=== PATIENT | female | born 1935 | race Caucasian/White ===

== ENCOUNTER → 2016-12-31 | Outpatient (CLI) | payer BC ==
[~2016-12-31] MED LIST: EVS60 PO; OXYC-57 PO
--- NOTE | 2017-01-03 14:25 | MAMMOGRAPHY REPORT ---
BILATERAL DIGITAL SCREENING MAMMOGRAM WITH CAD: 12/31/2016 CLINICAL HISTORY: Routine screening. Patient has no complaints. Asymptomatic. Personal history of b reast cancer. TECHNIQUE: Current study was also evaluated with a Computer Aided Detection (CAD) system. Bilatera l CC and MLO views and left X CCL view were obtained. COMPARISON: Comparison is made to exams dated: 12/31/2015 mammogram, 06/25/2015 mammogram, 12/06/2014 mammogram, 11/22/2012 mammogram, 11/28/2013 mammogram, and 11/05/2011 mammogram - [facility] enter. BREAST COMPOSITION: There are scattered areas of fibroglandular density in both breasts. FINDINGS: No suspicious masses, calcifications, or areas of architectural distortion are noted in e ither breast. There has been no significant interval change compared to prior exams. Scattered bilat eral benign-appearing calcifications are not significantly changed. There are stable post surgical changes in the left breast from prior lumpectomy. A biopsy marker clip is again noted in the right 6:00 breast. Asymmetry seen within the left subareolar breast on the MLO view is similar to prior e xams including the 2010 exam. IMPRESSION: ACR BI-RADS CATEGORY 2: BENIGN There is no mammographic evidence of malignancy. A 1 year screening mammogram is recommended. The p atient will receive written notification of the results. Approximately 10% of breast cancers are not detected with mammography. A negative mammographic repor t should not delay biopsy if a clinically suggestive mass is present. Wendy Arndt M.D. ah/:12/31/2016 15:26:45 Head Orthopedic Team Physician: Ricardo YUSUF(Stephanie)(M), [facility] letter sent: Normal 1/2 BI-RADS Code: ACR BI-RADS Category 2: Benign
== END | disposition home or self-care (01) ==
LOC: C.MAMM 10:42
PROVIDERS: ATTEND Obstetrics & Gynecology
DX: Z12.31 Encounter for screening mammogram for malignant neoplasm of breast (principal); Z85.3 Personal history of malignant neoplasm of breast

== ENCOUNTER → 2016-12-31 | Outpatient (CLI) | payer BC ==
[2016-12-31 12:54] LABS: BLOOD UREA NITROGEN 32 mg/dl (7-18); BUN/CREATININE RATIO 24.4 (10-20); CARBON DIOXIDE 22 mmol/L (21-32); CHLORIDE 109 mmol/L (98-107); GLUCOSE 124 mg/dl (70-99); POTASSIUM 3.9 mmol/L (3.5-5.1); SODIUM 140 mmol/L (136-145)
[2016-12-31 13:08] LABS: ESTIMATED AVERAGE GLUCOSE 117 mg/dl; HA1C FLAG Normal (Normal)
--- NOTE | 2017-01-25 10:50 | CODING QUERY MEDICAL NECESSITY ---
CQSUPPORTING DIAGNOSIS NEEDED A supporting diagnosis is required for the test/procedure performed on this patient in order for us to be reimbursed by the patient's insurance. Please provide a supporting diagnosis for the following test/procedure listed below next to the test name along with your signature. *If there is no additional diagnosis for this patient that would support the following test/procedure please document that below next to the test/procedure. Test(s)/Procedure(s) that require a supporting diagnosis: LEYLA 12/31/16 GLYCATED HEMOGLOBIN Provider Signature: Date: Thank you Letty Kebede [employer] Once completed, please kindly fax back to [phone] For questions please call [phone]
== END | disposition home or self-care (01) ==
LOC: C.LAB1850 11:18
PROVIDERS: ATTEND Internal Medicine
DX: I10 Essential (primary) hypertension (principal); E53.8 Deficiency of other specified B group vitamins; Z12.31 Encounter for screening mammogram for malignant neoplasm of breast; Z85.3 Personal history of malignant neoplasm of breast; R73.9 Hyperglycemia, unspecified

== ENCOUNTER → 2017-07-07 | Outpatient (CLI) | payer BC | END | disposition home or self-care (01) | LOC: C.MAMM 11:32 | PROVIDERS: ATTEND Obstetrics & Gynecology | DX: M85.80 Other specified disorders of bone density and structure, unspecified site (principal); M85.832 Other specified disorders of bone density and structure, left forearm ==

== ENCOUNTER 2018-01-07 20:33 | Inpatient (IN) | payer BC, OTHER ==
[~2018-01-07] VITALS: Ht 162.6 cm; Wt 75.8 kg
--- NOTE | 2018-01-07 20:50 | EMERGENCY ROOM VISIT NOTE ---
History Report prepared by Caleb: Mary Al Under the Supervision of: Dr. Brian Turner M.D. 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 Positive RUQ abdominal pain, nausea, dry heaving, itchiness, and a recent long distance trip to [facility]. Negative vomiting. She states she has been having constant chest discomfort for the past week, so she went to [facility] and had an EKG done which showed inversions and a BBB. Nothing makes her discomfort better or worse. She also notes she felt a lot of pressure across her chest and shoulders which reminded her of compression fractures s she had a few years ago. 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 Review of Systems See HPI for pertinent positives and negatives. A total of ten systems were reviewed and were otherwise negative. Past Medical & Surgical Medical Problems: (1) Abdominal pain (2) Obstructive jaundice HTN (hypertension) Osteopenia Family History Cancer Diabetes mellitus Heart disease High blood pressure Kidney disease Social History Smoking Status: Former Smoker Alcohol Use: occasionally Marital Status: Occupation Status: retired Current/Historical Medications Scheduled Biotin (Biotin 5000), 5 MG PO DAILY Calcium Carbonate-Vitamin D W/ (Caltrate 600 Plus), 1 TAB PO DAILY Diclofenac Sodium (Topical) (Voltaren 1% Top Gel), 1 APPLN TOP PRN UD Fluticasone Propionate (Nasal) (Flonase Allergy Relief), 2 SPRAYS MICHAEL DAILY Glucosamine-Chondroitin (Osteo Bi-Flex Regular Str), 1 TAB PO DAILY Indapamide (Lozol), 1.25 MG PO DAILY Metronidazole (Topical) (Metrogel), 1 APPLN TOP PRN UD Multiple Vitamins W/ Minerals (Centrum Silver 50+Women), 1 TAB PO DAILY Raloxifene Hcl (Evista), 60 MG PO DAILY Scheduled PRN Hydroxyzine Hcl (Atarax), 25 MG PO HS PRN for Ibuprofen Tab (Advil), 200 MG PO TID PRN for Pain Tramadol (Ultram), 50-100 MG PO Q4 PRN for Pain Allergies Coded Allergies: No Known Allergies (Verified Allergy, Unknown, 11/18/02) Physical Exam Vital Signs Date Time Temp Pulse Resp B/P (MAP) Pulse Ox O2 Delivery O2 Flow Rate FiO2 01/08/18 01:15 78 20 147/74 97 Room Air 01/07/18 23:15 80 20 151/79 99 Room Air 01/07/18 21:19 75 01/07/18 21:10 96 Room Air 01/07/18 20:34 36.7 81 24 144/85 96 Room Air Physical Exam GENERAL: Awake, alert, well-appearing, NAD HENT: Normocephalic, atraumatic. EYES: Normal conjunctiva. Positive scleral icterus. PERRL. No anisocoria. NECK: Supple. No nuchal rigidity. FROM. RESPIRATORY: CTAB, no rhonchi, wheezing, crackles CARDIAC: RRR, no MRG ABDOMEN: Soft, NTND, BS+. RUQ discomfort. Positive Guillermo's, negative psoas, negative obturators. No guarding no rebound MSK: No chest wall TTP, no LE edema NEURO: GCS 15, CN 2-12 intact, moves all 4s on command SKIN: Jaundiced complexion. Medical Decision & Procedures ER Provider Diagnostic Interpretation: Radiology results as stated below per my review and radiologist interpretation: CHEST ONE VIEW PORTABLE HISTORY: 82 years-old Female CHEST PAIN acute atypical chest pain COMPARISON: Chest radiographs 07/20/2010 TECHNIQUE: Portable AP view of the chest FINDINGS: Cardiomediastinal and hilar silhouettes are within normal limits. The patient is slightly rotated to the left. There is no pneumothorax, large pleural effusion, overt pulmonary edema or lobar airspace consolidation. Minimal subsegmental left basilar opacities suggest atelectasis. Surgical clips project over the left axilla. Bones of the chest appear grossly intact. IMPRESSION: No acute process. The above report was generated using voice recognition software. It may contain grammatical, syntax or spelling errors. Electronically signed by: Eliu Torres M.D. 01/07/2018 9:07 PM Dictated Date/Time: 01/07/2018 9:06 PM US ABDOMEN LIMITED Pancreas within normal limits Echogenic liver suggestive of hepatic steatosis. Multiple hypoechoic masses, largest meausuring 2.8 cm. Consider tumor/metastases. Consider dedicated liver CT, nonurgent. Intrahepatic biliary ductal dilatation is concerning. Common bile duct also measures 1 cm. Correlate with LFTs .Gallbladder is normal. Right kidney is unremarkable. Radiologist: Ashwin Lemus M.D. Study ready at 23:09 and initial results transmitted at 23:35 Laboratory Results 01/07/18 20:55 Red Blood Count 4.12, Mean Corpuscular Volume 93.9, Mean Corpuscular Hemoglobin 32.8, Mean Corpuscular Hemoglobin Concent 34.9, Mean Platelet Volume 11.3, Neutrophils (%) (Auto) 45.6, Lymphocytes (%) (Auto) 41.6, Monocytes (%) (Auto) 8.3, Eosinophils (%) (Auto) 4.0, Basophils (%) (Auto) 0.3, Neutrophils # (Auto) 4.19, Lymphocytes # (Auto) 3.83, Monocytes # (Auto) 0.76, Eosinophils # (Auto) 0.37, Basophils # (Auto) 0.03 01/07/18 20:55 Test 01/07/18 20:55 01/08/18 00:13 White Blood Count 9.20 K/uL (4.8-10.8) Red Blood Count 4.12 M/uL (4.2-5.4) Hemoglobin 13.5 g/dL (12.0-16.0) Hematocrit 38.7 % (37-47) Mean Corpuscular Volume 93.9 fL (80-100) Mean Corpuscular Hemoglobin 32.8 pg (25-34) Mean Corpuscular Hemoglobin Concent 34.9 g/dl (32-36) Platelet Count 280 K/uL (130-400) Mean Platelet Volume 11.3 fL (7.4-10.4) Neutrophils (%) (Auto) 45.6 % Lymphocytes (%) (Auto) 41.6 % Monocytes (%) (Auto) 8.3 % Eosinophils (%) (Auto) 4.0 % Basophils (%) (Auto) 0.3 % Neutrophils # (Auto) 4.19 K/uL (1.4-6.5) Lymphocytes # (Auto) 3.83 K/uL (1.2-3.4) Monocytes # (Auto) 0.76 K/uL (0.11-0.59) Eosinophils # (Auto) 0.37 K/uL (0-0.5) Basophils # (Auto) 0.03 K/uL (0-0.2) RDW Standard Deviation 50.4 fL (36.4-46.3) RDW Coefficient of Variation 14.8 % (11.5-14.5) Immature Granulocyte % (Auto) 0.2 % Immature Granulocyte # (Auto) 0.02 K/uL (0.00-0.02) Prothrombin Time 10.6 SECONDS (9.0-12.0) Prothromb Time International Ratio 1.0 (0.9-1.1) Activated Partial Thromboplast Time 24.1 SECONDS (21.0-31.0) Partial Thromboplastin Ratio 0.9 Anion Gap 10.0 mmol/L (3-11) Est Creatinine Clear Calc Drug Dose 37.8 ml/min Estimated GFR () 50.4 Estimated GFR (Non- 43.5 BUN/Creatinine Ratio 19.8 (10-20) Calcium Level 9.4 mg/dl (8.5-10.1) Phosphorus Level 2.9 mg/dl (2.5-4.9) Magnesium Level 1.7 mg/dl (1.8-2.4) Ferritin 884.6 ng/ml (8.0-388.0) Total Bilirubin 13.4 mg/dl (0.2-1) Direct Bilirubin 11.0 mg/dl (0-0.2) Aspartate Amino Transf (AST/SGOT) 684 U/L (15-37) Alanine Aminotransferase (ALT/SGPT) 793 U/L (12-78) Alkaline Phosphatase 447 U/L (45-117) Troponin I < 0.015 ng/ml (0-0.045) Pro-B-Type Natriuretic Peptide 137 pg/ml (0-1800) Total Protein 7.6 gm/dl (6.4-8.2) Albumin 3.6 gm/dl (3.4-5.0) Lipase 581 U/L (73-393) Ethyl Alcohol mg/dL < 3.0 mg/dl (0-3) Laboratory results reviewed by me Medications Administered Medications (Trade) Dose Ordered Sig/Rm Route Start Time Stop Time Status Last Admin Dose Admin Morphine Sulfate (MoRPHine SULFATE INJ) 4 mg NOW STAT IV 01/07/18 22:02 01/07/18 22:03 DC 01/07/18 22:09 4 MG Ondansetron HCl (Zofran Inj) 4 mg NOW STAT IV 01/07/18 22:02 01/07/18 22:03 DC 01/07/18 22:08 4 MG Potassium Chloride 100 ml @ 100 mls/hr NOW STAT IV 01/07/18 22:02 01/07/18 23:01 DC 01/07/18 22:09 100 MLS/HR Ondansetron HCl (Zofran Inj) 4 mg Q6H PRN IV 01/08/18 02:30 02/07/18 02:29 01/08/18 11:25 4 MG Morphine Sulfate (MoRPHine SULFATE INJ) 4 mg Q4H PRN IV 01/08/18 02:30 01/22/18 02:29 01/08/18 11:25 4 MG ECG Per My Interpretation Indication: chest pain Rate (beats per minute): 76 Rhythm: normal sinus Findings: RBBB, left axis deviation, other (wide QRS,TWI anterior lead ) Comparison ECG Date: 07/20/2010 Change: RBBB and TWI are new compared to prior EKG ED Course 2040: The patient was evaluated in room B2. A complete history and physical exam was performed. 2201: Ordered Potassium Chloride 100 ml @ 100 mls/hr IV, Zofran Inj 4 mg IV, Morphine Sulfate 4 mg IV 2320: I informed the patient of the treatment plan at this time. She was agreeable. 2348: Discussed the patient's case with Dr. Mallorie Coleman, [facility] Hospitalist. The patient will be evaluated for further treatment and disposition. 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 Positive RUQ abdominal pain, nausea, dry heaving, itchiness, and a recent long distance trip. Negative vomiting. Differential diagnosis: Etiologies such as appendicitis, diverticulitis, PUD, biliary pathology, UTI, pancreatitis, obstruction, mesenteric ischemia, aortic pathology, infections, inflammatory bowel disease, renal colic, cardiac ischemia, aortic dissection, pulmonary embolism, pneumonia, pneumothorax, musculoskeletal, infections, pericarditis, myocarditis, esophageal rupture, gastrointestinal, as well as others were entertained. Patient was seen and evaluated the bedside. Patient does have prior history of hypertension. Patient was complaining some mild chest pain and was seen at [facility] showed an abnormal EKG with right bundle branch block. Upon review of prior EKG she did have an incomplete right bundle. The patient does not complain of any active chest pain. Of note the patient is jaundiced and does have scleral icterus on exam. Patient has been complaining of some itchiness. She did recently travel to [facility]. Patient denies any IV drug abuse history of hepatitis, ingestions, or transfusions. Patient did have blood work completed along with EKG, troponin, chest x-ray and gallbladder ultrasound. The patient's blood work showed a normal white blood cell count. The patient is not anemic. Troponin is negative. Patient does have elevations in alk phos, bilirubin, and liver enzymes. The patient was given medication for pain control and antiemetics. Chest x-ray was unremarkable. Patient's gallbladder ultrasound showed that she had echogenicities of the liver. Patient had CBD dilatation of 1cm, which given patient's age is potentially normal pericholecystic fluid, or gallbladder wall thickening. No evidence of stones. Given this there is a concern for possible malignancy. I did discuss the findings with the patient the patient's family member. I did discuss the patient with the on-call hospitalist who agreed to further evaluate and treat the patient. I did add an alcohol and Tylenol level. We did discuss the need for CT scans and these were deferred at this time. The patient was admitted to the medicine service. Medication Reconcilliation Current Medication List: was personally reviewed by ar Blood Pressure Screening Patient's blood pressure: Elevated blood pressure Blood pressure disposition: Referred to PCP Consults Time Called: [phone] Consulting Physician: Dr. Mallorie Coleman, [facility] Hospitalist Returned Call: [phone] Discussed the patient's case with Dr. Mallorie Coleman, [facility] Hospitalist. The patient will be evaluated for further treatment and disposition. Impression Primary Impression: Transaminitis Additional Impressions: RUQ pain Hypokalemia Hypomagnesemia Obstructive jaundice Scribe Attestation The scribe's documentation has been prepared under my direction and personally reviewed by me in its entirety. I confirm that the note above accurately reflects all work, treatment, procedures, and medical decision making performed by me. Departure Information Dispostion Being Evaluated By Hospitalist (Dr. Mallorie Coleman, [facility] Hospitalist ) Referrals Devante Marks M.D. (PCP) Patient Instructions My [facility] Problem Qualifiers
--- NOTE | 2018-01-07 21:08 | DIAGNOSTIC IMAGING REPORT ---
CHEST ONE VIEW PORTABLE HISTORY: 82 years-old Female CHEST PAIN acute atypical chest pain COMPARISON: Chest radiographs 07/20/2010 TECHNIQUE: Portable AP view of the chest FINDINGS: Cardiomediastinal and hilar silhouettes are within normal limits. The patient is slightly rotated to the left. There is no pneumothorax, large pleural effusion, overt pulmonary edema or lobar airspace consolidation. Minimal subsegmental left basilar opacities suggest atelectasis. Surgical clips project over the left axilla. Bones of the chest appear grossly intact. IMPRESSION: No acute process. The above report was generated using voice recognition software. It may contain grammatical, syntax or spelling errors. Electronically signed by: Eliu Torres M.D. 01/07/2018 9:07 PM Dictated Date/Time: 01/07/2018 9:06 PM
[2018-01-07 21:20] LABS: PTT PATIENT 24.1 SECONDS (21.0-31.0)
[2018-01-07] MEDS ORDERED: CALCTAB7 PO (21:22)
[2018-01-07] MEDS ORDERED: METR0.7527 TOP (21:22)
[2018-01-07] MEDS ORDERED: HYDR-3124 PO (21:22)
[2018-01-07] MEDS ORDERED: RALO60TA30 PO (21:22)
[2018-01-07] MEDS ORDERED: IBUP-103 PO (21:22)
[2018-01-07] MEDS ORDERED: MULT-1092 PO (21:22)
[2018-01-07] MEDS ORDERED: TRAM-10 PO (21:22)
[2018-01-07] MEDS ORDERED: BIOTCAP2 PO (21:22)
[2018-01-07] MEDS ORDERED: FLUT0.15 NAE (21:22)
[2018-01-07] MEDS ORDERED: DICL1GEL12 TOP (21:22)
[2018-01-07] MEDS ORDERED: INDA1TAB3 PO (21:22)
[2018-01-07] MEDS ORDERED: GLUCTAB18 PO (21:22)
[2018-01-07 21:29] LABS: BASO % 0.3 %; BASO ABS # 0.03 K/uL (0-0.2); EOS ABS # 0.37 K/uL (0-0.5); HEMATOCRIT 38.7 % (37-47); HEMOGLOBIN 13.5 g/dL (12.0-16.0); IG# 0.02 K/uL (0.00-0.02); LYMPH % 41.6 %; LYMPH ABS # 3.83 K/uL (1.2-3.4); MEAN CELL VOLUME 93.9 fL (80-100); MEAN CORPUSCULAR HEMOGLOBIN 32.8 pg (25-34); MEAN CORPUSCULAR HGB CONC 34.9 g/dl (32-36); MEAN PLATELET VOLUME 11.3 fL (7.4-10.4); MONO % 8.3 %; MONO ABS # 0.76 K/uL (0.11-0.59); NEUT % 45.6 %; NEUT ABS # 4.19 K/uL (1.4-6.5); PLATELET COUNT 280 K/uL (130-400); RED CELL DISTRIBUTION WIDTH CV 14.8 % (11.5-14.5); RED CELL DISTRIBUTION WIDTH SD 50.4 fL (36.4-46.3)
[2018-01-07 21:36] LABS: ALBUMIN 3.6 gm/dl (3.4-5.0); ALT/SGPT 793 U/L (12-78); AST/SGOT 684 U/L (15-37); BLOOD UREA NITROGEN 23 mg/dl (7-18); CALCIUM 9.4 mg/dl (8.5-10.1); CARBON DIOXIDE 26 mmol/L (21-32); CREATININE 1.18 mg/dl (0.60-1.20); GLUCOSE 129 mg/dl (70-99); LIPASE 581 U/L (73-393); SODIUM 137 mmol/L (136-145)
[2018-01-07 21:38] LABS: ALKALINE PHOSPHATASE 447 U/L (45-117); PHOSPHORUS 2.9 mg/dl (2.5-4.9); TOTAL PROTEIN 7.6 gm/dl (6.4-8.2)
[2018-01-07] MEDS ORDERED: ONDANSETRON INJ 2 MG/ML 2 ML VIAL IV STA (22:02)
[2018-01-07] MEDS ORDERED: POTASSIUM CHLR 10 MEQ / WTR 100 ML IV STA (22:02)
[2018-01-07] MEDS ORDERED: MoRPHine SULFATE 4 MG/ML 1 ML CARP\\VIAL IV STA (22:02)
[2018-01-08] VITALS (7 sets, daily range): BP systolic 113–151; BP diastolic 66–75; PULSE 71–78; TEMP 36.6–37.1; O2SAT 94–98; BMI 28.4
[2018-01-08] MEDS ORDERED: OPTIRAY 320 IV PRN (01:00)
--- NOTE | 2018-01-08 02:16 | History and Physical ---
History & Physical Date & Time of Service: January 08, 2018 at 01:32 Chief Complaint: Abnormal Ekg, Nausea, Itchy, Back Pain Primary Care Physician: Devante Marks M.D. History of Present Illness Patient is an 82 year old female with a past medical history of breast cancer, hypertension, and osteoporosis that presents with a 3 day history of abdominal pain. The patient initially began having nausea and right upper quadrant abdominal pain Tuesday evening. The patient also reports having some chills since the initiation of her symptoms. The pain is dull, constant, 5/10 and has not improved since initially presenting. The patient also states that she was having mid back discomfort (across her back) along with pruritus that started 1 week ago. The patient also reports recent travel to [facility] 1 month ago. She was in [place] the last few days and returned this evening when they went directly to [employer]. She was found to have a RBBB on EKG as well as scleral icterus and jaundice and was told to come to the emergency department. The patient denies any other acute symptoms including fever, sweats, vomiting, diarrhea, chest pain, shortness of breath, or dysuria. Past Medical/Surgical History Medical Problems: (1) HTN (hypertension) (2) Osteopenia (3) Osteoporosis Family History Cancer Diabetes mellitus Heart disease High blood pressure Kidney disease Social History Smoking Status: Former Smoker Marital Status: Housing status: lives with family Occupational Status: retired Allergies Coded Allergies: No Known Allergies (Verified Allergy, Unknown, 11/18/02) Home Medications Scheduled Biotin (Biotin 5000), 5 MG PO DAILY Calcium Carbonate-Vitamin D W/ (Caltrate 600 Plus), 1 TAB PO DAILY Diclofenac Sodium (Topical) (Voltaren 1% Top Gel), 1 APPLN TOP PRN UD Fluticasone Propionate (Nasal) (Flonase Allergy Relief), 2 SPRAYS MICHAEL DAILY Glucosamine-Chondroitin (Osteo Bi-Flex Regular Str), 1 TAB PO DAILY Indapamide (Lozol), 1.25 MG PO DAILY Metronidazole (Topical) (Metrogel), 1 APPLN TOP PRN UD Multiple Vitamins W/ Minerals (Centrum Silver 50+Women), 1 TAB PO DAILY Raloxifene Hcl (Evista), 60 MG PO DAILY Scheduled PRN Hydroxyzine Hcl (Atarax), 25 MG PO HS PRN for Ibuprofen Tab (Advil), 200 MG PO TID PRN for Pain Tramadol (Ultram), 50-100 MG PO Q4 PRN for Pain Review of Systems Constitutional: + chills, + fatigue, No fever, No sweats, No weight loss Respiratory: No cough, No sputum, No wheezing, No shortness of breath Cardiovascular: No chest pain, No edema, No palpitations Abdomen: + pain (RUQ), + nausea, No vomiting, No diarrhea, No constipation Genitourinary - Female: No dysuria, No urinary frequency, No urinary urgency Neurologic: No numbness/tingling Integumentary: + itch, No rash Physical Exam Vital Signs Date Time Temp Pulse Resp B/P (MAP) Pulse Ox O2 Delivery O2 Flow Rate FiO2 01/07/18 23:15 80 20 151/79 99 Room Air 01/07/18 21:19 75 01/07/18 21:10 96 Room Air 01/07/18 20:34 36.7 81 24 144/85 96 Room Air General Appearance: WD/WN, no apparent distress, + pertinent finding (jaundice) Head: normocephalic, atraumatic Eyes: PERRL, EOMI, + pertinent finding (Scleral icterus) Neck: supple, no carotid bruits, trachea midline Respiratory/Chest: chest non-tender, lungs clear, normal breath sounds Cardiovascular: regular rate, rhythm, no edema, no gallop Abdomen/GI: normal bowel sounds, soft, + pertinent finding (RUQ tenderness, splenomegaly) Back: normal inspection, no CVA tenderness Extremities/Musculoskelatal: no calf tenderness, normal range of motion Neurologic/Psych: alert, normal mood/affect, oriented x 3, + pertinent finding (No asterixis on exam) Diagnostics Laboratory Results Results Past 24 Hours Test 01/07/18 20:55 01/08/18 00:13 Range/Units White Blood Count 9.20 4.8-10.8 K/uL Red Blood Count 4.12 4.2-5.4 M/uL Hemoglobin 13.5 12.0-16.0 g/dL Hematocrit 38.7 37-47 % Mean Corpuscular Volume 93.9 80-100 fL Mean Corpuscular Hemoglobin 32.8 25-34 pg Mean Corpuscular Hemoglobin Concent 34.9 32-36 g/dl Platelet Count 280 130-400 K/uL Mean Platelet Volume 11.3 7.4-10.4 fL Neutrophils (%) (Auto) 45.6 % Lymphocytes (%) (Auto) 41.6 % Monocytes (%) (Auto) 8.3 % Eosinophils (%) (Auto) 4.0 % Basophils (%) (Auto) 0.3 % Neutrophils # (Auto) 4.19 1.4-6.5 K/uL Lymphocytes # (Auto) 3.83 1.2-3.4 K/uL Monocytes # (Auto) 0.76 0.11-0.59 K/uL Eosinophils # (Auto) 0.37 0-0.5 K/uL Basophils # (Auto) 0.03 0-0.2 K/uL RDW Standard Deviation 50.4 36.4-46.3 fL RDW Coefficient of Variation 14.8 11.5-14.5 % Immature Granulocyte % (Auto) 0.2 % Immature Granulocyte # (Auto) 0.02 0.00-0.02 K/uL Prothrombin Time 10.6 9.0-12.0 SECONDS Prothromb Time International Ratio 1.0 0.9-1.1 Activated Partial Thromboplast Time 24.1 21.0-31.0 SECONDS Partial Thromboplastin Ratio 0.9 Sodium Level 137 136-145 mmol/L Potassium Level 3.0 3.5-5.1 mmol/L Chloride Level 101 98-107 mmol/L Carbon Dioxide Level 26 21-32 mmol/L Anion Gap 10.0 3-11 mmol/L Blood Urea Nitrogen 23 7-18 mg/dl Creatinine 1.18 0.60-1.20 mg/dl Est Creatinine Clear Calc Drug Dose 37.8 ml/min Estimated GFR () 50.4 Estimated GFR (Non- 43.5 BUN/Creatinine Ratio 19.8 10-20 Random Glucose 129 70-99 mg/dl Calcium Level 9.4 8.5-10.1 mg/dl Phosphorus Level 2.9 2.5-4.9 mg/dl Magnesium Level 1.7 1.8-2.4 mg/dl Total Bilirubin 13.4 0.2-1 mg/dl Direct Bilirubin 11.0 0-0.2 mg/dl Aspartate Amino Transf (AST/SGOT) 684 15-37 U/L Alanine Aminotransferase (ALT/SGPT) 793 12-78 U/L Alkaline Phosphatase 447 45-117 U/L Troponin I < 0.015 0-0.045 ng/ml Pro-B-Type Natriuretic Peptide 137 0-1800 pg/ml Total Protein 7.6 6.4-8.2 gm/dl Albumin 3.6 3.4-5.0 gm/dl Lipase 581 73-393 U/L Ethyl Alcohol mg/dL < 3.0 0-3 mg/dl Impression Assessment and Plan Patient is an 82 year old female with a past medical history of breast cancer, hypertension, and osteoporosis that presents with a 3 day history of abdominal pain Acute Hepatitis - Secondary underlying cancer with liver masses or liver infection including Hepatitis - Liver US: Multiple hyperechoic masses, largest measuring 2.8 cm. Dilated bile duct 1cm - Abdominal CT: Mass at tail of the pancreas concerning for cancer (4.2 x 4.4cm) - LFTs: AST - 684, ALT- 793, Alk Phos- 447 - Lipase - 581 - TBili - 13.4 - Ethyl Alcohol wnl - Acetaminophen level unable to run due to icteric sample - Acute Hepatitis Panel - Ferritin Level Check - Morphine 4mg IV q4h PRN for pain - Zofran 4mg IV q6h for Nausea Hypokalemia (3.0) - Given 10meq IV in ED - 40 meq PO Klor-Con now - Monitor with daily BMP Hypomagnesemia (1.7) - Magnesium Sulfate 2gm - Repeat Mag in AM Hypertension - Continue home Indapamide History of Breast Cancer - Continue home Raloxifene DVT - Lovenox 30mg Code Status - Full Resuscitation Resuscitation Status Full Resuscitation VTE Prophylaxis Will order VTE Prophylaxis: Yes Resident Tracking Resident Involvement: Resident Care Provided Care Provided: Adult Hospital Medicine History Patient seen and examined, chart reviewed, case discussed with Dr. Rojas and I agree with his assessment and plan as documented above. Briefly, patient is an 82yo female with history of breast cancer, HTN presenting with abdominal pain and nausea x 4 days as well as RUQ pain and itching. On physical exam she is afebrile, hemodynamically stable. She is a thin female with scleral icterus and jaundice present. Heart +S1/S2, regular, Lungs CTA, Abdomen soft, tender in RUQ without rebound or guarding, Extremities warm, no edema. Neuro grossly intact. Labs reveal hepatocellular and obstructive pattern on LFTs, elevated Lipase. CT abdomen with heterogenous rounded mass involving the pancreatic tail with possible loculation 4.4 x 4.2 cm concerning for malignancy. Assessment: 82yo female with history of breast cancer presenting with GI distress found with abnormal liver studies, lipase and mass concerning for pancreatic adenocarcinoma. We discussed the CT findings with the patient including the concern for malignancy. Patient with no additional questions at this time. -Order [id number] -Consult GI and Oncology -Remainder of plan as above
[2018-01-08] MEDS ORDERED: MAGNESIUM SULFATE 1GM / D5W 100 ML IV STA (02:30)
[2018-01-08] MEDS ORDERED: POTASSIUM CHLORIDE 20 MEQ TABCR PO ONE (04:00)
[2018-01-08] MEDS: MoRPHine SULFATE 4 MG/ML 1 ML CARP\\VIAL IV PRN ×3 (04:06→21:08)
[2018-01-08] MEDS: MAGNESIUM SULFATE 1GM / D5W 100 ML IV SCH ×2 (04:13→05:19)
--- NOTE | 2018-01-08 07:48 | DIAGNOSTIC IMAGING REPORT ---
ABDOMINAL ULTRASOUND, RIGHT UPPER QUADRANT HISTORY: jaundiced, scleral icterus, itchy, RUQ pain. COMPARISON: None. FINDINGS: Pancreas: The pancreatic head and tail are obscured by overlying bowel gas. The remaining portions of the pancreas are within normal limits. Liver: Moderate intrahepatic bile duct dilatation. There are least 4 hypoechoic masses within the liver with the largest measuring 2.8 cm. Gallbladder: No gallbladder wall thickening. No gallstones. CBD: 1 cm. Right kidney: No hydronephrosis. IMPRESSION: 1. Multiple hepatic masses concerning for metastatic disease. 2. Intra and intrahepatic bile duct dilatation. 3. Normal gallbladder. Electronically signed by: Nick Fletcher M.D. 01/08/2018 7:46 AM Dictated Date/Time: 01/08/2018 7:44 AM
[2018-01-08] MEDS: RALOXIFENE 60 MG TAB PO SCH (08:23)
[2018-01-08] MEDS: ENOXAPARIN 30 MG/0.3 ML SYR SQ SCH ×2 (08:23→21:07)
[2018-01-08] MEDS: INDAPAMIDE 1.25 MG TAB PO SCH (08:23)
--- NOTE | 2018-01-08 08:42 | Progress Note ---
Progress Note Date of Service January 08, 2018. Progress Note Pt admitted after midnight, please do not use this for billing S: Patient naturally upset about situation, reports itch and other sx have been present for about a week. Just came back from travelling [place] and [place] and should be going to [facility] in the fall. has not been told yet since he was home sleeping. O: Gen: Awake, alert, NAD Eyes: Scleral icterus CVS: RRR HS normal no MRG Chest: CTAB Abd: SNT Skin: Jaundice Ext: No peripheral edema A: Jaundice & icterus, w/itch and back pain, with new discovery of mass at head of pancreas w/metastases to liver. P: Await onc and GI recommendations Vistaril for itch (zyrtec ineffective so far) Resident Tracking Resident Involvement: Resident Care Provided Care Provided: Adult Hospital Medicine
[2018-01-08] MEDS ORDERED: hydrOXYzine HCL 25 MG TAB PO ONE (09:00)
--- NOTE | 2018-01-08 09:03 | DIAGNOSTIC IMAGING REPORT ---
ABDOMEN AND PELVIS CT WITH IV CONTRAST CT DOSE: 405.29 mGy.cm HISTORY: Generalized abdominal pain. Back pain. Nausea. TECHNIQUE: Multiaxial CT images of the abdomen and pelvis were performed following the use of intravenous contrast. A dose lowering technique was utilized adhering to the principles of ALARA. COMPARISON STUDY: Abdomen and pelvis CT 03/31/2012. FINDINGS: There is a 4.5 x 4.2 cm heterogeneous mass within the pancreatic tail. This abuts the left kidney and spleen. There is abrupt cut off at the proximal splenic vein consistent with occlusion. The distal splenic artery is also narrowed. This likely accounts for the heterogeneous perfusion of the spleen. There is greater than expected soft tissue within the hunter hepatis with associated moderate intrahepatic bile duct dilatation. This favors metastatic disease given the ill-defined soft tissue at the hunter hepatis which measures approximately 3.8 cm. This likely accounts for the moderate intra and extrahepatic bile duct dilatation with abrupt narrowing/cut off of the common bile duct due to the soft tissue abnormality. The soft tissue abnormality also results in mild mass effect without occlusion of the main portal vein. As seen on the same day abdominal ultrasound there are a few scattered hypodense lesions within the liver consistent with metastatic disease. Dominant lesion within the left hepatic lobe measures 2.4 cm. Mild dependent changes seen at the lung bases. No pneumoperitoneum. No pneumatosis. Old, healed left pubic ring fracture. Posterior decompression and fusion within the lower lumbar spine. Advanced degenerative changes throughout the lumbar spine with a mild superior endplate compression deformity at L1. This is likely old. There is also severe disc space narrowing at T11-T12 with endplate erosion of the inferior endplate of T11 and a fracture along the left inferior endplate of T11. There is prevertebral soft tissue swelling. This favors a subacute is associated mild paravertebral soft tissue swelling. The endplate erosive changes also raises possibility of an underlying discitis/osteomyelitis. However, there is vacuum phenomenon at T11-T12 disc space. Therefore, this is considered less likely but not entirely excluded. Metastatic disease at this location is also considered less likely given the appearance but not entirely excluded. Mild right cortical renal scarring. There are few hypodense lesions within the left kidney. No hydronephrosis. Normal bladder. The uterus and bilateral adnexa are unremarkable. Colonic diverticulosis. No evidence for bowel obstruction. The superior mesenteric artery and vein are patent. The gallbladder is within normal limits. IMPRESSION: 1. A 4.5 x 4.2 cm mass at the pancreatic tail. This is highly suspicious for a pancreatic malignancy. 2. A few hypodense hepatic lesions consistent with metastatic disease. 3. Ill-defined soft tissue abnormality at the hunter hepatis measuring approximately 3.8 cm consistent with metastatic disease. This results in focal narrowing of the common bile duct with moderate intra and extra hepatic bile duct dilatation as well as mild narrowing of the main portal vein. There is also an abrupt cut off of the splenic vein consistent with occlusion and the splenic artery is also narrowed. 4. There is severe disc space narrowing at T11-T12 with endplate erosion of the inferior endplate of T11 and a fracture along the left inferior endplate of T11. There is prevertebral soft tissue swelling. This favors a subacute fracture with associated mild paravertebral soft tissue swelling. The endplate erosive changes also raises possibility of an underlying discitis/osteomyelitis. However, there is vacuum phenomenon at T11-T12 disc space. Therefore, this is considered less likely but not entirely excluded. Metastatic disease at this location is also considered less likely given the appearance but not entirely excluded. 5. Additional findings as described above. Electronically signed by: Nick Fletcher M.D. 01/08/2018 9:02 AM Dictated Date/Time: 01/08/2018 8:40 AM
[2018-01-08 09:19] LABS: HEP C IGG 13 YRS+OLDER_RFLX NEG (NEG)
[2018-01-08] MEDS ORDERED: INDOMETHACIN 50 MG SUPP PR ONE (09:30)
--- NOTE | 2018-01-08 10:59 | GASTROINTESTINAL CONSULTATION ---
DATE OF CONSULTATION: 01/08/2018 GI consult. REASON FOR EVALUATION: Abdominal pain, jaundice and pancreatic mass. HISTORY OF PRESENT ILLNESS: The patient is an 82-year-old female admitted last evening after returning from [facility] and [place] with a 3-day history of abdominal pain. She also noted some itching. The pain is dull and constant in the epigastric area and associated with some nausea and a little bit of pain in the right upper quadrant as well. Patient went to [facility] and she was found to be icteric and a right bundle branch block and was referred to the Emergency Room where she was admitted. Her CT scan shows that she has a 4.5 cm mass in the tail of the pancreas, nondescript mass in the hunter hepatis which is obstructing her bile duct and splenic vein which is thrombosed as well as some lesions in the liver measuring up to 2.5 cm, suspicious for metastatic disease. PAST MEDICAL HISTORY: Remarkable for hypertension, osteoporosis, osteopenia, has had a history of breast cancer as well as lumbar surgery. MEDICATIONS: Per list. ALLERGIES: None. FAMILY HISTORY: Positive for cancer, diabetes, heart disease, hypertension, kidney disease. SOCIAL HISTORY: The patient is a former smoker. She is , lives with her . She is retired. Her daughter is a surgical supervisor at [employer]. REVIEW OF SYSTEMS: Positive for some chills, fatigue, nausea, abdominal pain, itchy skin. The remainder is negative. PHYSICAL EXAMINATION: GENERAL: The patient is visibly jaundiced, but in no acute distress. VITAL SIGNS: Blood pressure is 150/80, pulse 80, respirations 20, pulse ox on room air is 99%. HEENT: Pharynx is clear. LUNGS: Showed normal breath sounds. HEART: Showed a normal S1, S2 with regular rate and rhythm. ABDOMEN: Shows some tenderness in the upper abdomen without a discrete mass. LABORATORY DATA: Laboratory show white count of 9.2, hemoglobin 13.5, platelets are 280,000. Sodium is 137, potassium 3, calcium 9.4, magnesium is 1.7, bilirubin 13.4, AST 684, ALT 793, alkaline phosphatase 447, lipase 581. IMPRESSION: Patient has a pancreatic mass in the tail very suspicious for adenocarcinoma with a probable hunter hepatis metastasis compressing the bile duct and possibly liver metastasis as well. PLAN: I plan on scheduling the patient for an ERCP to decompress her bile duct and an EUS to get a biopsy of her pancreas. This would be performed by Dr. Jacinto tomorrow. I explained the procedure to the patient in detail. She is willing to proceed. In addition, I plan on putting her on Mefoxin as she is at risk for cholangitis with an obstructed bile duct. She is already receiving Lovenox injections due to her splenic vein thrombosis and hypercoagulable state, which will be continued. JOSEPH
[2018-01-08] MEDS: ONDANSETRON INJ 2 MG/ML 2 ML VIAL IV PRN (11:25)
--- NOTE | 2018-01-08 12:45 | Oncology Consultation ---
Oncology/Heme Consultation Date of Consultation: January 08, 2018. Attending Physician: Priya Land M.D. 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 Reed is a 77-year-old female that states that she developed abdominal pain very recently within the past few days. She states that over last weekend she noted that her urine color change. She has not noticed any change in the color of her stool. She states that she really never took notice of a bout her eyes developing jaundice. She denies significant weight loss. She states she has been very active and is lost a few pounds. She states her appetite has been decreased recently. Her performance status is easily graded at 1.0 on an ECOG scale. She denies any chills. She states she occasionally feels warm. She denies any chest pain. She denies any shortness of breath. The abdominal pain that she has is relegated to the right upper quadrant of her abdomen. Past Medical/Surgical History She has a history of breast carcinoma dates back 29 years affecting the left breast status post lumpectomy radiation therapy she took tamoxifen for 8 years. She states that there is BRCA1 positivity in the family. She denies any prior history of heart disease lung disease strokes seizures or diabetes or GI problems Family History Cancer Diabetes mellitus Heart disease High blood pressure Kidney disease Social History Smoking Status: Former Smoker Marital Status: Occupation Status: retired Allergies Coded Allergies: No Known Allergies (Verified Allergy, Unknown, 11/18/02) Home Medications Scheduled Biotin (Biotin 5000), 5 MG PO DAILY Calcium Carbonate-Vitamin D W/ (Caltrate 600 Plus), 1 TAB PO DAILY Diclofenac Sodium (Topical) (Voltaren 1% Top Gel), 1 APPLN TOP PRN UD Fluticasone Propionate (Nasal) (Flonase Allergy Relief), 2 SPRAYS MICHAEL DAILY Glucosamine-Chondroitin (Osteo Bi-Flex Regular Str), 1 TAB PO DAILY Indapamide (Lozol), 1.25 MG PO DAILY Metronidazole (Topical) (Metrogel), 1 APPLN TOP PRN UD Multiple Vitamins W/ Minerals (Centrum Silver 50+Women), 1 TAB PO DAILY Raloxifene Hcl (Evista), 60 MG PO DAILY Scheduled PRN Hydroxyzine Hcl (Atarax), 25 MG PO HS PRN for Ibuprofen Tab (Advil), 200 MG PO TID PRN for Pain Tramadol (Ultram), 50-100 MG PO Q4 PRN for Pain Current Inpatient Medications Current Inpatient Medications Medications (Trade) Dose Ordered Sig/Rm Route Start Time Stop Time Status Last Admin Dose Admin Ioversol (Optiray 320) 100 ml UD PRN IV 01/08/18 01:00 01/12/18 00:59 Enoxaparin Sodium (Lovenox Inj) 30 mg Q12 SQ 01/08/18 09:00 02/07/18 08:59 01/08/18 08:23 30 MG Ondansetron HCl (Zofran Inj) 4 mg Q6H PRN IV 01/08/18 02:30 02/07/18 02:29 01/08/18 11:25 4 MG Indapamide (Lozol Tab) 1.25 mg DAILY PO 01/08/18 08:00 02/07/18 08:59 01/08/18 08:23 1.25 MG Raloxifene HCl (Evista Tab) 60 mg DAILY PO 01/08/18 08:00 02/07/18 08:59 01/08/18 08:23 60 MG Morphine Sulfate (MoRPHine SULFATE INJ) 4 mg Q4H PRN IV 01/08/18 02:30 01/22/18 02:29 01/08/18 11:25 4 MG Hydroxyzine HCl (Vistaril Tab) 25 mg Q6H PRN PO 01/08/18 08:45 02/07/18 08:44 Cefoxitin Sodium 1000 mg/Dextrose 60 ml @ 100 mls/hr Q8 IV 01/08/18 14:00 01/09/18 13:59 Review of Systems Constitutional: Negative for significant weight loss, night sweats, or definite fever/chills Eyes: Negative for event change of vision ENT: Negative for epistaxis, nasal discharge, sore throat, or deafness Cardiovascular: Negative for chest pain, palpitations, dizziness, diaphoresis Respiratory: Negative for new shortness of breath,hemoptysis, or purulent cough Gastrointestinal: Negative for diarrhea, hematemesis, melena, nausea, vomiting , . She has had pain in the right upper quadrant her abdomen and she states also perhaps the midline of her chest that sounds like dyspepsia Integumentary (skin): Negative for rash. She is jaundiced Genitourinary: Negative for urinary frequency, hematuria, or dysuria Neurological: Negative for weakness, seizure activity, headache, or dizziness Lymphatic/Hematologic: Negative for petechiae, bleeding or new adenopathy Musculoskeletal: Negative for new joint or back pain Allergic/Immunologic: Negative for unusual rash she has had generalized pruritis for about 1 week. Physical Exam Date Time Temp Pulse Resp B/P (MAP) Pulse Ox O2 Delivery O2 Flow Rate FiO2 01/08/18 11:48 36.7 77 20 123/71 (88) 96 Room Air 01/08/18 11:00 Room Air 01/08/18 07:14 36.6 73 20 115/66 (82) 95 Room Air 01/08/18 03:35 36.6 78 20 151/75 98 Room Air 01/08/18 02:53 81 18 126/73 96 Room Air 01/08/18 01:15 78 20 147/74 97 Room Air 01/07/18 23:15 80 20 151/79 99 Room Air 01/07/18 21:19 75 01/07/18 21:10 96 Room Air 01/07/18 20:34 36.7 81 24 144/85 96 Room Air Constitutional: vitals are stable. Eyes: Eyes are ERIKA EOMI without conjuctival erythema. There is scleral icterus. ENT: External examination was negative for masses. Neck: Negative for masses or palpable thyromegaly Respiratory: Lung sounds were generally clear bilaterally Cardiovascular: Heart was RRR without significant murmur, gallops aoe rubs Gastrointestinal: No palpable hepatic or splenomegaly. The abdomen was soft with normal bowel sounds. Lymphatic system: there was no palpable peripheral lymphadenopathy Musculoskeletal System: The musculoskeletal system seemed concordant with age. Skin: The skin was positive for jaundice Neurologic exam: The exam was negative for any focal findings. Deep tendon reflexes were equal and symmetrical. Psychiatric exam: Was essentially negative with normal mood and effect. Breast exam: Done with patient permission was negative for palpable masses or corollary supraclavicular or axillary palpable adenopathy. Exam was witnessed by either a relative, assessor, or clinic staff. There is some mild induration of the left breast area. Again no evidence of regional or local recurrence. Extremities: negative for edema Laboratory Results Last 24 Hours Test 01/07/18 20:55 01/08/18 00:13 01/08/18 06:20 White Blood Count 9.20 K/uL Red Blood Count 4.12 M/uL Hemoglobin 13.5 g/dL Hematocrit 38.7 % Mean Corpuscular Volume 93.9 fL Mean Corpuscular Hemoglobin 32.8 pg Mean Corpuscular Hemoglobin Concent 34.9 g/dl Platelet Count 280 K/uL Mean Platelet Volume 11.3 fL Neutrophils (%) (Auto) 45.6 % Lymphocytes (%) (Auto) 41.6 % Monocytes (%) (Auto) 8.3 % Eosinophils (%) (Auto) 4.0 % Basophils (%) (Auto) 0.3 % Neutrophils # (Auto) 4.19 K/uL Lymphocytes # (Auto) 3.83 K/uL Monocytes # (Auto) 0.76 K/uL Eosinophils # (Auto) 0.37 K/uL Basophils # (Auto) 0.03 K/uL RDW Standard Deviation 50.4 fL RDW Coefficient of Variation 14.8 % Immature Granulocyte % (Auto) 0.2 % Immature Granulocyte # (Auto) 0.02 K/uL Prothrombin Time 10.6 SECONDS Prothromb Time International Ratio 1.0 Activated Partial Thromboplast Time 24.1 SECONDS Partial Thromboplastin Ratio 0.9 Sodium Level 137 mmol/L Potassium Level 3.0 mmol/L Chloride Level 101 mmol/L Carbon Dioxide Level 26 mmol/L Anion Gap 10.0 mmol/L Blood Urea Nitrogen 23 mg/dl Creatinine 1.18 mg/dl Est Creatinine Clear Calc Drug Dose 37.8 ml/min Estimated GFR () 50.4 Estimated GFR (Non- 43.5 BUN/Creatinine Ratio 19.8 Random Glucose 129 mg/dl Calcium Level 9.4 mg/dl Phosphorus Level 2.9 mg/dl Magnesium Level 1.7 mg/dl Ferritin 884.6 ng/ml Total Bilirubin 13.4 mg/dl Direct Bilirubin 11.0 mg/dl Aspartate Amino Transf (AST/SGOT) 684 U/L Alanine Aminotransferase (ALT/SGPT) 793 U/L Alkaline Phosphatase 447 U/L Troponin I < 0.015 ng/ml Pro-B-Type Natriuretic Peptide 137 pg/ml Total Protein 7.6 gm/dl Albumin 3.6 gm/dl Lipase 581 U/L Ethyl Alcohol mg/dL < 3.0 mg/dl Hepatitis B Surface Antigen NEG Hepatitis C Antibody NEG Assessment & Plan Scans reviewed. She most likely does have pancreatic carcinoma with hepatic metastasis. There is also a fullness soft tissue just inferior to the hepatic area that extends over to the pancreas. This fullness does seem to affect the splenic vein. The splenic artery is also somewhat compromised. Portal vein is open although it to his compromised. I understand an ERCP is planned tomorrow with possible biopsy. We await for those results. She is on Lovenox for the splenic vein thrombosis however I do not believe is a splenic vein thrombosis is really causing any problems. The pain that she has is relegated to the right upper quadrant of her abdomen. I would be in favor of holding it until procedures are all done and then resuming anticoagulation with a drug like Lovenox afterwards. Eliquis could also be used. We will follow along with you.
[2018-01-08] MEDS: CEFOXITIN IV 1,000 MG in DEXTROSE 5% 50ML 50 ML IV SCH ×2 (13:28→21:07)
[2018-01-08] MEDS: hydrOXYzine HCL 25 MG TAB PO PRN ×2 (15:37→21:07)
[2018-01-08] MEDS: LACTATED RINGER'S 1000ML 1,000 ML IV SCH (21:07)
[2018-01-09] VITALS (7 sets, daily range): BP systolic 107–157; BP diastolic 62–75; PULSE 69–78; TEMP 36.4–38.1; O2SAT 94–99; Ht 162.6 cm; Wt 75.8 kg
[2018-01-09] MEDS ORDERED: CHOLESTYRAMINE LIGHT 4 GM PKT PO ONE (00:57)
[2018-01-09] MEDS ORDERED: DiphenhydrAMINE HCL 50 MG/ML VIAL IV STA (01:11)
[2018-01-09 05:26] LABS: BASO % 0.5 %; BASO ABS # 0.03 K/uL (0-0.2); EOS % 7.8 %; EOS ABS # 0.43 K/uL (0-0.5); HEMATOCRIT 34.4 % (37-47); HEMOGLOBIN 11.9 g/dL (12.0-16.0); LYMPH ABS # 2.31 K/uL (1.2-3.4); MEAN CELL VOLUME 93.5 fL (80-100); MEAN CORPUSCULAR HEMOGLOBIN 32.3 pg (25-34); MEAN CORPUSCULAR HGB CONC 34.6 g/dl (32-36); MEAN PLATELET VOLUME 10.5 fL (7.4-10.4); MONO % 8.9 %; MONO ABS # 0.49 K/uL (0.11-0.59); NEUT % 40.8 %; NEUT ABS # 2.24 K/uL (1.4-6.5); PLATELET COUNT 221 K/uL (130-400); RED CELL DISTRIBUTION WIDTH SD 50.4 fL (36.4-46.3)
[2018-01-09] MEDS: CEFOXITIN IV 1,000 MG in DEXTROSE 5% 50ML 50 ML IV SCH (05:53)
[2018-01-09] MEDS: LACTATED RINGER'S 1000ML 1,000 ML IV SCH (05:53)
[2018-01-09] MEDS: MoRPHine SULFATE 4 MG/ML 1 ML CARP\\VIAL IV PRN ×4 (05:56→23:41)
[2018-01-09 06:06] LABS: ALBUMIN 2.9 gm/dl (3.4-5.0); CALCIUM 8.6 mg/dl (8.5-10.1); CREATININE 1.34 mg/dl (0.60-1.20); POTASSIUM 3.4 mmol/L (3.5-5.1); TOTAL PROTEIN 6.6 gm/dl (6.4-8.2)
[2018-01-09] MEDS: ENOXAPARIN 30 MG/0.3 ML SYR SQ SCH ×2 (06:57→16:59)
[2018-01-09] MEDS: INDAPAMIDE 1.25 MG TAB PO SCH (08:20)
[2018-01-09] MEDS: hydrOXYzine HCL 25 MG TAB PO PRN ×2 (08:20→17:13)
[2018-01-09] MEDS: RALOXIFENE 60 MG TAB PO SCH (08:20)
[2018-01-09] MEDS: CHOLESTYRAMINE LIGHT 4 GM PKT PO SCH ×2 (08:22→20:25)
[2018-01-09] MEDS ORDERED: INDOMETHACIN 50 MG SUPP PR SCH (09:30)
--- NOTE | 2018-01-09 12:18 | History & Physical Bridge Note ---
H&P Re-Evaluation Bridge Note: I have examined the patient, reviewed the History & Physical and in the interval since the performance of the History & Physical I have noted the following changes of clinical significance: No changes noted Abd soft NT + Bs Consent for EUS/FNA and ERCP with sphincterotomy and stent placement obtained. Pt/ family agree to proceed. Risks include bleeding, infection and pancreatitis ( 5 %) luisito
[2018-01-09] MEDS ORDERED: DEXAMETHASONE SOD INJ 4 MG/ML VIAL ONE (12:40)
[2018-01-09] MEDS ORDERED: LIDOCAINE HCL 2% 2 ML VIAL (20MG/ML) ONE (12:40)
[2018-01-09] MEDS ORDERED: FENTANYL CITRATE INJ 50 MCG/1 ML 2 ML VIAL ONE (12:40)
[2018-01-09] MEDS ORDERED: ONDANSETRON INJ 2 MG/ML 2 ML VIAL ONE (12:40)
[2018-01-09] MEDS ORDERED: SUCCINYLCHOLINE CHLORIDE 20 MG/ML 10 ML VIAL IV ONE (12:40)
[2018-01-09] MEDS ORDERED: PROPOFOL IV EMULSION 10 MG/ML 20 ML VIAL ONE ×2 (12:40→13:21)
[2018-01-09] MEDS ORDERED: ONDANSETRON INJ 2 MG/ML 2 ML VIAL IV PRN (13:00)
[2018-01-09] MEDS ORDERED: FENTANYL CITRATE INJ 50 MCG/1 ML 2 ML VIAL IV PRN (13:00)
[2018-01-09] MEDS ORDERED: LABETALOL HCL IV 5 MG/ML 20ML IV PRN (13:00)
[2018-01-09] MEDS ORDERED: ATROPINE SULFATE 0.1 MG/ML 5ML SYR IV PRN (13:00)
[2018-01-09] MEDS ORDERED: CIPROFLOXACIN 400MG / 200ML D5W ONE (14:26)
--- NOTE | 2018-01-09 15:05 | [facility] Post Operative Brief Note ---
Immediate Operative Summary Operative Date January 09, 2018. Pre-Operative Diagnosis Abdominal Pain, Obstructive Jaundice, Pancreatic Mass Post-Operative Diagnosis Abdominal Pain, Obstructive Jaundice, Pancreatic Mass Procedure(s) Performed Upper Endoscopic Ultrasonography. Fine Needle Aspiration, Fine Needle Biopsy, Endoscopic Retrograde Cholangiopancreatogram Surgeon Dr. Jacinto Credit Reporter Surgeon(s) None Estimated Blood Loss 0mL Findings Consistent with Post-Op Diagnosis Specimens Endo staff handled all and any specimens. Anesthesia Type General Disposition Disposition: Recovery Room / PACU Overlapping Procedure I was immediately available: during the entire case
--- NOTE | 2018-01-09 15:15 | DIAGNOSTIC IMAGING REPORT ---
ERCP BILIARY DUCTAL CLINICAL HISTORY: ERCP. COMPARISON STUDY: CT of the abdomen and pelvis January 08, 2018. FLUOROSCOPY TIME: 2 minutes and 25 seconds. FINDINGS: 11 fluoroscopic images from ERCP were submitted for interpretation. These images demonstrate cannulation of the common bile duct with abrupt narrowing of the common hepatic and proximal common bile duct likely due to malignancy/lymphadenopathy. There is upstream biliary ductal dilatation. Final images demonstrate placement of a biliary stent which appears appropriately positioned. IMPRESSION: Fluoroscopic images from ERCP demonstrating biliary stricture, intrahepatic biliary ductal dilatation and placement of a common bile duct stent. Electronically signed by: Lio Lawton M.D. 01/09/2018 3:14 PM Dictated Date/Time: 01/09/2018 3:12 PM
--- NOTE | 2018-01-09 15:42 | Anesthesiology Progress Note ---
Anesthesia Post Op Note Date & Time January 09, 2018 at 15:42 Vital Signs Pain Intensity: 1 Vital Signs Past 12 Hours Date Time Temp Pulse Resp B/P (MAP) Pulse Ox O2 Delivery O2 Flow Rate FiO2 01/09/18 15:05 36.0 71 16 130/77 98 Nasal Cannula 3 01/09/18 12:21 37.1 70 18 126/72 (90) 95 Room Air 01/09/18 09:09 Room Air 01/09/18 07:10 36.7 70 20 118/62 (80) 94 Room Air 01/09/18 04:00 36.8 72 20 107/63 (78) 94 Room Air Notes Mental Status: alert / awake / arousable, participated in evaluation Pt Amnestic to Procedure: Yes Nausea / Vomiting: adequately controlled Pain: adequately controlled Airway Patency, RR, SpO2: stable & adequate BP & HR: stable & adequate Hydration State: stable & adequate Anesthetic Complications: no major complications apparent
--- NOTE | 2018-01-09 16:13 | GI REPORT ---
Patient Name: Tequila Dela Cruz Procedure Date: 01/09/2018 12:35 PM Date of : 1935 Admit Type: Inpatient Age: 82 Gender: Female Attending MD: Devante Jacinto MD Procedure: ERCP Providers: Devante Jacinto MD Referring MD: Sung Forbes Indications: Abnormal abdominal CT, Jaundice Medicines: General Anesthesia Complications: No immediate complications. Estimated blood loss: None Estimated Blood Loss: Estimated blood loss: none. Procedure: Pre-Anesthesia Assessment: - Prior to the procedure, a History and Physical was performed, and patient medications and allergies were reviewed. The patient's tolerance of previous anesthesia was also reviewed. The risks and benefits of the procedure and the sedation options and risks were discussed with the patient. All questions were answered, and informed consent was obtained. Prior Anticoagulants: The patient has taken no previous anticoagulant or antiplatelet agents. ASA Grade Assessment: II - A patient with mild systemic disease. After reviewing the risks and benefits, the patient was deemed in satisfactory condition to undergo the procedure. After obtaining informed consent, the scope was passed under direct vision. Throughout the procedure, the patient's blood pressure, pulse, and oxygen saturations were monitored continuously. The Scope was introduced through the mouth, and advanced to the duodenum and used to inject contrast into the bile duct. The ERCP was accomplished without difficulty. The patient tolerated the procedure well. Findings: The sap administrator film was normal. The esophagus was successfully intubated under direct vision. The scope was advanced to a normal major papilla in the descending duodenum without detailed examination of the pharynx, larynx and associated structures, and upper GI tract. The upper GI tract was grossly normal. A straight 0.035 inch Tracer [employer] Direct wire was passed into the biliary tree. The short-nosed traction sphincterotome was passed over the guidewire and the bile duct was then cannulated. Contrast was injected. I personally interpreted the bile duct images. Ductal flow of contrast was adequate. Image quality was adequate. Contrast extended to the entire biliary tree. The middle third of the main bile duct contained a single severe localized stenosis 3 mm in length. The upper third of the main bile duct, hepatic duct bifurcation, left main hepatic duct and right main hepatic duct were mildly dilated and diffusely dilated, with extrinsic compression causing an obstruction. The largest diameter was 10 mm. A 3 mm biliary sphincterotomy was made with a short nose sphincterotome using ERBE electrocautery. There was no post-sphincterotomy bleeding. One 10 Fr by 9 cm temporary plastic biliary stent with a single external flap and a single internal flap was placed 8.5 cm into the common bile duct. Bile flowed through the stent. The stent was in good position. The PD was not instrumented or opacified. No samples taken. 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 The stricture was malignant appearing. - The upper third of the main bile duct, left main hepatic duct and right main hepatic duct were mildly dilated, with extrinsic compression causing an obstruction. - A biliary sphincterotomy was performed. - One temporary plastic biliary stent was placed into the common bile duct. Recommendation: - [facility]. - Repeat ERCP in 6 weeks to exchange stent. - Depending on staging and operative candidacy, may consider metal stent placement. MD Devante Hernandez MD 01/09/2018 4:12:36 PM This report has been signed electronically. Note Initiated On: 01/09/2018 12:35 PM Number of Addenda: 0 I attest to the content of the Intraoperative Record and orders documented therein, exceptions below {[id number]}
[2018-01-09] MEDS: ONDANSETRON INJ 2 MG/ML 2 ML VIAL IV PRN ×2 (17:14→23:41)
--- NOTE | 2018-01-09 17:28 | Family Medicine Progress Note ---
Progress Note Date of Service January 09, 2018. Subjective Pt evaluation today including: conversation w/ patient, physical exam, chart review, lab review, review of studies Pain: Mild abdominal pain Voiding: no voiding problems, no incontinence Patient is resting comfortably in bed this morning. She has been having worsening itching overnight and there was no improvement with Benadryl. Her abdominal pain has well controlled with Morphine at this time. Plan for EUS and ERCP this afternoon with Dr. Jacinto and will meet afterwards. Constitutional: No fever, No chills, No sweats, No fatigue Respiratory: No cough, No sputum, No wheezing, No shortness of breath, No dyspnea on exertion Cardiovascular: No chest pain, No palpitations Abdomen: + pain, No nausea, No vomiting, No diarrhea, No constipation Female : No dysuria, No urinary frequency Heme: No clotting problems Skin: + itch Medications Current Inpatient Medications Medications (Trade) Dose Ordered Sig/Rm Route Start Time Stop Time Status Last Admin Dose Admin Ioversol (Optiray 320) 100 ml UD PRN IV 01/08/18 01:00 01/12/18 00:59 Enoxaparin Sodium (Lovenox Inj) 30 mg Q12 SQ 01/08/18 09:00 02/07/18 08:59 01/08/18 21:07 30 MG Ondansetron HCl (Zofran Inj) 4 mg Q6H PRN IV 01/08/18 02:30 02/07/18 02:29 01/08/18 11:25 4 MG Indapamide (Lozol Tab) 1.25 mg DAILY PO 01/08/18 08:00 02/07/18 08:59 01/09/18 08:20 1.25 MG Raloxifene HCl (Evista Tab) 60 mg DAILY PO 01/08/18 08:00 02/07/18 08:59 01/09/18 08:20 60 MG Morphine Sulfate (MoRPHine SULFATE INJ) 4 mg Q4H PRN IV 01/08/18 02:30 01/22/18 02:29 01/09/18 09:14 4 MG Hydroxyzine HCl (Vistaril Tab) 25 mg Q6H PRN PO 01/08/18 08:45 02/07/18 08:44 01/09/18 08:20 25 MG Indomethacin (Indocin Suppository) 100 mg 0930 [place] 01/09/18 09:30 01/09/18 16:00 Cholestyramine Resin (Questran Powder Light) 4 gm BID@10,22 PO 01/09/18 10:00 02/08/18 09:59 Ondansetron HCl (Zofran Inj) 4 mg ONE PRN IV 01/09/18 13:00 01/09/18 18:00 Atropine Sulfate (Atropine Sulfate 0.1mg/ml Inj) 0.5 mg Q1M PRN IV 01/09/18 13:00 01/09/18 18:00 Fentanyl Citrate (Fentanyl Inj) 25 mcg Q5M PRN IV 01/09/18 13:00 01/09/18 18:00 Labetalol HCl (Normodyne IV) 5 mg Q5M PRN IV 01/09/18 13:00 01/09/18 18:00 Objective Vital Signs Date Time Temp Pulse Resp B/P (MAP) Pulse Ox O2 Delivery O2 Flow Rate FiO2 01/09/18 15:05 36.0 71 16 130/77 98 Nasal Cannula 3 01/09/18 12:21 37.1 70 18 126/72 (90) 95 Room Air 01/09/18 09:09 Room Air 01/09/18 07:10 36.7 70 20 118/62 (80) 94 Room Air 01/09/18 04:00 36.8 72 20 107/63 (78) 94 Room Air 01/09/18 00:00 94 Room Air 01/08/18 23:42 36.9 71 20 113/68 (83) 95 Room Air 01/08/18 20:00 94 Room Air 01/08/18 19:48 37.1 75 18 114/67 (83) 94 Room Air 01/08/18 15:41 36.9 74 20 144/74 (97) 98 Room Air Physical Exam General Appearance: no apparent distress, + pertinent finding (Jaundiced) Eyes: PERRL, EOMI, + abnormal sclerae exam (Scleral Icterus) Neck: supple, no carotid bruits, trachea midline Respiratory/Chest: chest non-tender, lungs clear, normal breath sounds Cardiovascular: regular rate, rhythm, no edema, no gallop, no murmur Abdomen: normal bowel sounds, soft, + tenderness (RUQ) Extremities: no pedal edema, no calf tenderness Neurologic/Psychiatric: alert, normal mood/affect, oriented x 3 Skin: + jaundice Laboratory Results Results Past 24 Hours Test 01/09/18 05:14 Range/Units White Blood Count 5.50 4.8-10.8 K/uL Red Blood Count 3.68 4.2-5.4 M/uL Hemoglobin 11.9 12.0-16.0 g/dL Hematocrit 34.4 37-47 % Mean Corpuscular Volume 93.5 80-100 fL Mean Corpuscular Hemoglobin 32.3 25-34 pg Mean Corpuscular Hemoglobin Concent 34.6 32-36 g/dl Platelet Count 221 130-400 K/uL Mean Platelet Volume 10.5 7.4-10.4 fL Neutrophils (%) (Auto) 40.8 % Lymphocytes (%) (Auto) 42.0 % Monocytes (%) (Auto) 8.9 % Eosinophils (%) (Auto) 7.8 % Basophils (%) (Auto) 0.5 % Neutrophils # (Auto) 2.24 1.4-6.5 K/uL Lymphocytes # (Auto) 2.31 1.2-3.4 K/uL Monocytes # (Auto) 0.49 0.11-0.59 K/uL Eosinophils # (Auto) 0.43 0-0.5 K/uL Basophils # (Auto) 0.03 0-0.2 K/uL RDW Standard Deviation 50.4 36.4-46.3 fL RDW Coefficient of Variation 15.0 11.5-14.5 % Immature Granulocyte % (Auto) 0.0 % Immature Granulocyte # (Auto) 0.00 0.00-0.02 K/uL Sodium Level 137 136-145 mmol/L Potassium Level 3.4 3.5-5.1 mmol/L Chloride Level 105 98-107 mmol/L Carbon Dioxide Level 25 21-32 mmol/L Anion Gap 7.0 3-11 mmol/L Blood Urea Nitrogen 20 7-18 mg/dl Creatinine 1.34 0.60-1.20 mg/dl Est Creatinine Clear Calc Drug Dose 33.2 ml/min Estimated GFR () 43.3 Estimated GFR (Non- 37.3 BUN/Creatinine Ratio 14.6 10-20 Random Glucose 103 70-99 mg/dl Calcium Level 8.6 8.5-10.1 mg/dl Total Bilirubin 14.3 0.2-1 mg/dl Direct Bilirubin 11.7 0-0.2 mg/dl Aspartate Amino Transf (AST/SGOT) 492 15-37 U/L Alanine Aminotransferase (ALT/SGPT) 586 12-78 U/L Alkaline Phosphatase 438 45-117 U/L Total Protein 6.6 6.4-8.2 gm/dl Albumin 2.9 3.4-5.0 gm/dl Lipase 197 73-393 U/L Assessment and Plan Acute Hepatitis 2/2 Obstructing Pancreatic Mass - Abdominal CT 01/08: 1. A 4.5 x 4.2 cm mass at the pancreatic tail. This is highly suspicious for a pancreatic malignancy. 2. A few hypodense hepatic lesions consistent with metastatic disease. 3. Ill-defined soft tissue abnormality at the hunter hepatis measuring approximately 3.8 cm consistent with metastatic disease. This results in focal narrowing of the common bile duct with moderate intra and extra hepatic bile duct dilatation as well as mild narrowing of the main portal vein. There is also an abrupt cut off of the splenic vein consistent with occlusion and the splenic artery is also narrowed. - Liver US: Multiple hyperechoic masses, largest measuring 2.8 cm. Dilated bile duct 1cm - GI Consult: ERCP and EBUS Scheduled for this afternoon with Dr. Jacinto - Abdominal CT: Mass at tail of the pancreas concerning for cancer (4.2 x 4.4cm) - AST and ALT improved from yesterday but Alk Phos remains elevated - Lipase improved (588 --> 197) - TBili increased (13.4 --> 14.3) - Ethyl Alcohol wnl - Acetaminophen level unable to run due to icteric sample - Acute Hepatitis Panel wnl - Ferritin Level wnl - Morphine 4mg IV q4h PRN for pain - Zofran 4mg IV q6h for Nausea Suspected Pancreatic Cancer - EBUS by GI to obtain pancreatic sample for pathology - Oncology following - Continue to follpw Hypokalemia - Improved to 3.4 - 20 meq Potassium Chloride IV - Monitor with daily BMP Hypomagnesemia (1.7) - Magnesium Sulfate 2gm - Repeat Mag in AM Hypertension - Continue home Indapamide History of Breast Cancer - Continue home Raloxifene DVT - Lovenox 30mg Code Status - Full Resuscitation Resident Physician Supervision Note: I interviewed and examined the patient. Discussed with Dr. Rojas and agree with findings and plan as documented in the note. Any exceptions or clarifications are listed here: None Documented By: Sung Forbes seen post ERCP itching ongoing L eye irritated - notes this happens frequently when eyes taped for procedures - gets better w lubricating eyedrops only some abdominal fullness and nausea back pain but ill defined family present, extensive discussions, answered all questions to the best of my ability >30mins (~40) face to face in the room with pt/family vitals noted, (+) jaundice, L eye no gross lesions full ROM pupil appropriate. abd soft nd mild epigastric ttp no guarding/rebound new dx pancreatic cancer w obstructive jaundice -post stent should help w sx -await pathology back pain -?related to lesion seen? ?etiology of lesion seen - will need to evaluate further eye irritation -lubricating drops for now, eval under miranda lamp if not improving abdominal pain/nausea - most likely just post procedural - supportive care and follow - is higher risk for post procedure pancreatitis however again >30mins face to face in discussions Resident Tracking Resident Involvement: Resident Care Provided Care Provided: Adult Hospital Medicine
--- NOTE | 2018-01-09 17:47 | GI REPORT ---
Patient Name: Tequila Dela Cruz Procedure Date: 01/09/2018 12:34 PM Date of : 1935 Admit Type: Inpatient Age: 82 Gender: Female Attending MD: Devante Jacinto MD Procedure: Upper EUS Providers: Devante Jacinto MD Referring MD: Sung Forbes Indications: Suspected mass in pancreas on CT scan, Obstruction of bile duct on CT Medicines: General Anesthesia Complications: No immediate complications. Estimated blood loss: Minimal. Estimated Blood Loss: Estimated blood loss was minimal. Estimated blood loss was minimal. Procedure: Pre-Anesthesia Assessment: - Prior to the procedure, a History and Physical was performed, and patient medications and allergies were reviewed. The patient's tolerance of previous anesthesia was also reviewed. The risks and benefits of the procedure and the sedation options and risks were discussed with the patient. All questions were answered, and informed consent was obtained. Prior Anticoagulants: The patient has taken no previous anticoagulant or antiplatelet agents. ASA Grade Assessment: II - A patient with mild systemic disease. After reviewing the risks and benefits, the patient was deemed in satisfactory condition to undergo the procedure. After obtaining informed consent, the endoscope was passed under direct vision. Throughout the procedure, the patient's blood pressure, pulse, and oxygen saturations were monitored continuously. The scope was introduced through the mouth, and advanced to the duodenum for ultrasound examination from the esophagus, stomach and duodenum. The upper EUS was accomplished without difficulty. The patient tolerated the procedure well. Findings: Endoscopic Finding : The examined esophagus was normal. The entire examined stomach was normal. The examined duodenum was normal. The ampulla and examined duodenum were normal. Endosonographic Finding : There was no sign of significant endosonographic abnormality in the ampulla. The esophagus, stomach and duodenum and adjacent structures were visualized endosonographically. There was no sign of significant endosonographic abnormality in the esophagus. No pathologic lymphadenopathy was identified. Endosonographic images of the stomach were unremarkable. No pathologic lymphadenopathy was identified. There was no sign of significant endosonographic abnormality in the lower third of the main bile duct. The maximum diameter of the duct was 4 mm. No stones and no biliary sludge were identified. Two round lesions were identified endosonographically in the left lobe of the liver. The endosonographic appearance was suggestive of metastases. The lesions were hypoechoic and homogenous. The largest lesion measured 10 mm by 13 mm in maximal cross-sectional diameter. The endosonographic borders were well-defined. Fine needle aspiration for cytology was performed. Color Doppler imaging was utilized prior to needle puncture to confirm a lack of significant vascular structures within the needle path. Five passes were made with the 22 gauge needle using a transgastric approach. A stylet was used. A stage rigger was present to evaluate the adequacy of the specimen. The cellularity of the specimen was adequate. Final cytology results are pending. Estimated blood loss was minimal. Verification of patient identification for the specimen was done by the physician and underwriting technician using the patient's name and medical record number. Two lesions were identified endosonographically in the left lobe of the liver. The endosonographic appearance was suggestive of metastases. The lesions were hypoechoic. The endosonographic borders were well-defined. Fine needle biopsy was performed. Color Doppler imaging was utilized prior to needle puncture to confirm a lack of significant vascular structures within the needle path. One pass was made with the 22 gauge college[employer] EchoTip biopsy needle using a transgastric approach. A visible core of tissue was obtained. The cellularity of the specimen was adequate. Final cytology results are pending. An irregular mass was identified in the pancreatic body and pancreatic tail. The mass was hypoechoic, hyperechoic and heterogenous. The mass measured 35 mm by 30 mm in maximal cross-sectional diameter. The endosonographic borders were poorly-defined. The remainder of the pancreas was examined. The endosonographic appearance of parenchyma and the upstream pancreatic duct indicated a maximum duct diameter of 2 mm. Fine needle aspiration for cytology was performed. Color Doppler imaging was utilized prior to needle puncture to confirm a lack of significant vascular structures within the needle path. Two passes were made with the 22 gauge needle using a transgastric approach. A stylet was used. A stage rigger was present to evaluate the adequacy of the specimen. The cellularity of the specimen was adequate. Final cytology results are pending. Impression: - Normal esophagus. - Normal stomach. - Normal examined duodenum. - There was no sign of significant pathology in the ampulla. - There was no sign of significant pathology in the esophagus. Recommendation: - [facility]. - Await cytology results and await path results. - Cipro (ciprofloxacin) 500 mg PO BID for 3 days. MD Devante Hernandez MD 01/09/2018 5:47:23 PM This report has been signed electronically. Note Initiated On: 01/09/2018 12:34 PM Number of Addenda: 0 I attest to the content of the Intraoperative Record and orders documented therein, exceptions below {[id number]}
[2018-01-09] MEDS: CIPROFLOXACIN 500 MG TAB PO SCH (17:55)
[2018-01-09] MEDS: POTASSIUM CHLR 10 MEQ / WTR 100 ML IV SCH ×2 (18:04→19:14)
--- NOTE | 2018-01-09 18:29 | GASTROENTEROLOGY PROGRESS NOTE ---
DATE: 01/09/2018 SUBJECTIVE: The patient underwent EUS and ERCP today. EUS with FNA and fine needle biopsy directed toward liver lesions and also toward a complex pancreatic lesion that was approximately 3 to 4 cm in diameter. ERCP: A 10 [place] 9 cm biliary stent was placed with good position fluoroscopically and drainage of contrast load afterwards. There was a high grade stricture in the mid common bile duct region below the level of the cystic duct takeoff. There was dilated intrahepatics. Results discussed with the patient's family and the patient in her room after the procedure. The patient has some abdominal discomfort following the procedure that is different than the pain she presented with in the ER and during admission. This is rated as 7/10. Final diagnosis is pending at this time. Although preliminary features of the liver lesion suggest a carcinoma that is metastatic to the liver on rapid read, these results were not discussed with the family until final diagnosis is available by pathology. A fine needle biopsy was also taken. For the next 24 hours, would include small amounts of clear liquids only, control any pain, observe for features of post procedural event (possible pancreatitis). Regarding Lovenox, would not restart this until the patient is evaluated again tomorrow, and labs are available. CA19.9 is pending. The patient is prescribed hydroxyzine that she uses for her pruritus. Hopefully, with stent placement, LFTs will begin to resolve. At the stent exchange and over the next several weeks, consideration of a metallic stent could be made if this is felt to be nonoperative and would be managed with chemotherapy and/or radiation. The patient has itchy and irritated eye on the left side. Saline drops have been unhelpful. Would consider evaluation if this persists and either topical local anesthetic drops to help ease this or lubricating drops may be of benefit. Would continue Cipro 500 mg p.o. b.i.d. for 3 days, and the patient did receive a dose during the procedure. The family had questioned the presence of a lesion in or around T11 that may suggest diskitis or possibly focal osteomyelitis with a micro fracture. This may need further attention if this represents benign changes, infectious sources, or metastases although based on its appearance the imaging suggests this is less likely. All questions answered. Dr. Mckeon will be following the patient over the next 3 days. Further recommendations once the samples are available from the EUS today.
[2018-01-09] MEDS ORDERED: ARTIFICIAL TEARS OP OINT 3.5 GM TUBE OP ONE (18:30)
[2018-01-09] MEDS ORDERED: ARTIFICIAL TEARS OP OINT 3.5 GM TUBE OP PRN (18:30)
[2018-01-09] MEDS ORDERED: OXYCODONE HCL IR 5 MG TAB (IMMEDIATE RELEASE) PO PRN (18:30)
[2018-01-09] MEDS ORDERED: PROMETHAZINE HCL INJ 12.5 MG in SODIUM CHLORIDE 0.9% 50ML 50 ML IV PRN (18:30)
[2018-01-09] MEDS ORDERED: MoRPHine SULFATE 4 MG/ML 1 ML CARP\\VIAL IV PRN (18:30)
[2018-01-10] VITALS (10 sets, daily range): BP systolic 110–134; BP diastolic 59–72; PULSE 72–79; TEMP 36.8–37.7; O2SAT 93–96
[2018-01-10] MEDS ORDERED: ACETAMINOPHEN 325 MG TAB PO PRN (01:30)
[2018-01-10] MEDS ORDERED: NURSING VERBAL MED ORDER ONE (01:30)
[2018-01-10] MEDS ORDERED: PIPERACILL/TAZOBAC IV 3.375 GM in D5W 100 ML IV ONE (01:45)
[2018-01-10] MEDS ORDERED: PIPERACILL/TAZOBAC CONSULT ACTIVE PRN (01:45)
[2018-01-10] MEDS: hydrOXYzine HCL 25 MG TAB PO PRN ×4 (01:52→21:52)
[2018-01-10] MEDS: PIPERACILL/TAZOBAC IV 3.375 GM in D5W 100ML IV SCH ×3 (06:35→21:52)
--- NOTE | 2018-01-10 08:04 | Anesthesiology Progress Note ---
Anesthesia Post Op Note Date & Time January 10, 2018 at 08:03 Vital Signs Pain Intensity: 7.0 Vital Signs Past 12 Hours Date Time Temp Pulse Resp B/P (MAP) Pulse Ox O2 Delivery O2 Flow Rate FiO2 01/10/18 06:54 36.8 75 18 134/72 (92) 96 Room Air 01/10/18 03:31 77 16 117/65 (82) 93 Room Air 01/10/18 03:27 37.1 01/10/18 03:21 37.7 01/10/18 00:00 Room Air 01/09/18 23:51 38.1 01/09/18 23:31 37.4 78 16 142/68 (92) 97 Room Air Notes Mental Status: alert / awake / arousable, participated in evaluation Pt Amnestic to Procedure: Yes Nausea / Vomiting: adequately controlled Pain: adequately controlled Airway Patency, RR, SpO2: stable & adequate BP & HR: stable & adequate Hydration State: stable & adequate Anesthetic Complications: no major complications apparent
[2018-01-10] MEDS: INDAPAMIDE 1.25 MG TAB PO SCH (08:20)
[2018-01-10] MEDS: CIPROFLOXACIN 500 MG TAB PO SCH (08:21)
[2018-01-10] MEDS: RALOXIFENE 60 MG TAB PO SCH (08:21)
[2018-01-10 08:31] LABS: ALBUMIN 2.8 gm/dl (3.4-5.0); CALCIUM 8.8 mg/dl (8.5-10.1); CREATININE 1.26 mg/dl (0.60-1.20); POTASSIUM 3.6 mmol/L (3.5-5.1); TOTAL PROTEIN 6.3 gm/dl (6.4-8.2)
[2018-01-10 09:31] LABS: BASO % 0.2 %; BASO ABS # 0.02 K/uL (0-0.2); EOS % 0.9 %; EOS ABS # 0.09 K/uL (0-0.5); HEMOGLOBIN 11.4 g/dL (12.0-16.0); IG# 0.03 K/uL (0.00-0.02); LYMPH % 24.7 %; LYMPH ABS # 2.38 K/uL (1.2-3.4); MEAN CELL VOLUME 97.8 fL (80-100); MEAN CORPUSCULAR HEMOGLOBIN 31.8 pg (25-34); MEAN CORPUSCULAR HGB CONC 32.6 g/dl (32-36); MEAN PLATELET VOLUME 11.2 fL (7.4-10.4); MONO % 5.4 %; MONO ABS # 0.52 K/uL (0.11-0.59); NEUT % 68.5 %; NEUT ABS # 6.61 K/uL (1.4-6.5); PLATELET COUNT 194 K/uL (130-400); RED CELL DISTRIBUTION WIDTH CV 14.7 % (11.5-14.5); RED CELL DISTRIBUTION WIDTH SD 52.4 fL (36.4-46.3); WHITE BLOOD COUNT 9.65 K/uL (4.8-10.8)
[2018-01-10] MEDS: ENOXAPARIN 30 MG/0.3 ML SYR SQ SCH (09:52)
[2018-01-10] MEDS: MoRPHine SULFATE 4 MG/ML 1 ML CARP\\VIAL IV PRN ×3 (09:54→21:52)
[2018-01-10] MEDS: CHOLESTYRAMINE LIGHT 4 GM PKT PO SCH ×2 (10:12→22:45)
--- NOTE | 2018-01-10 10:34 | Family Medicine Progress Note ---
Progress Note Date of Service January 10, 2018. Subjective Pt evaluation today including: conversation w/ patient, physical exam, chart review, lab review, review of studies Pain: Mild abdominal tenderness Voiding: no voiding problems, no incontinence Patient tolerated procedure well yesterday and resting comfortably in bed this morning with no acute complaints. Itching has been well controlled with Vistril. Currently on ciprofloxacin and zosyn due to post-procedural fever and prophylaxis. Woke up with morning with sweats but denies fever at this time. Constitutional: + sweats, + fatigue, No fever, No chills Respiratory: No cough, No sputum, No wheezing, No shortness of breath Cardiovascular: No chest pain, No edema Abdomen: + pain, No nausea, No vomiting Female : No dysuria, No hematuria Skin: + itch, No rash Medications Current Inpatient Medications Medications (Trade) Dose Ordered Sig/Rm Route Start Time Stop Time Status Last Admin Dose Admin Ioversol (Optiray 320) 100 ml UD PRN IV 01/08/18 01:00 01/12/18 00:59 Enoxaparin Sodium (Lovenox Inj) 30 mg Q12 SQ 01/08/18 09:00 02/07/18 08:59 01/10/18 09:52 30 MG Ondansetron HCl (Zofran Inj) 4 mg Q6H PRN IV 01/08/18 02:30 02/07/18 02:29 01/09/18 23:41 4 MG Indapamide (Lozol Tab) 1.25 mg DAILY PO 01/08/18 08:00 02/07/18 08:59 01/10/18 08:20 1.25 MG Raloxifene HCl (Evista Tab) 60 mg DAILY PO 01/08/18 08:00 02/07/18 08:59 01/10/18 08:21 60 MG Morphine Sulfate (MoRPHine SULFATE INJ) 4 mg Q4H PRN IV 01/08/18 02:30 01/22/18 02:29 01/10/18 09:54 4 MG Hydroxyzine HCl (Vistaril Tab) 25 mg Q6H PRN PO 01/08/18 08:45 02/07/18 08:44 01/10/18 08:19 25 MG Cholestyramine Resin (Questran Powder Light) 4 gm BID@10, PO 01/09/18 10:00 02/08/18 09:59 01/10/18 10:12 4 GM Ciprofloxacin (Cipro Tab) 500 mg BID PO 01/09/18 17:15 01/12/18 08:01 01/10/18 08:21 500 MG Artificial Tears (Lacri-Lube Oph Oint) 1 appln Q24H PRN OP 01/09/18 18:30 02/08/18 18:29 01/09/18 23:46 1 APPLN Promethazine HCl 12.5 mg/Sodium Chloride 50.5 ml @ 204 mls/hr Q6H PRN IV 01/09/18 18:30 02/08/18 18:29 Morphine Sulfate (MoRPHine SULFATE INJ) 2 mg Q4 PRN IV 01/09/18 18:30 01/23/18 18:29 Oxycodone HCl (Roxicodone Immediate Rel Tab) 5 mg Q4 PRN PO 01/09/18 18:30 01/23/18 18:29 Acetaminophen (Tylenol Tab) 650 mg Q6H PRN PO 01/10/18 01:30 02/09/18 01:29 01/10/18 01:28 650 MG Piperacillin Sod/ Tazobactam Sod 3.375 gm/Dextrose 115 ml @ 28.75 mls/ hr Q8H IV 01/10/18 06:00 01/12/18 05:59 01/10/18 06:35 28.75 MLS/HR Miscellaneous Information (Consult) 1 ea UD PRN N/A 01/10/18 01:45 02/09/18 01:44 Objective Vital Signs Date Time Temp Pulse Resp B/P (MAP) Pulse Ox O2 Delivery O2 Flow Rate FiO2 01/10/18 06:54 36.8 75 18 134/72 (92) 96 Room Air 01/10/18 03:31 77 16 117/65 (82) 93 Room Air 01/10/18 03:27 37.1 01/10/18 03:21 37.7 01/10/18 00:00 Room Air 01/09/18 23:51 38.1 01/09/18 23:31 37.4 78 16 142/68 (92) 97 Room Air 01/09/18 19:46 37.1 75 18 130/73 (92) 95 Room Air 01/09/18 16:10 Room Air 01/09/18 16:10 36.4 69 18 157/75 (102) 99 Room Air 01/09/18 15:40 72 19 100 01/09/18 15:40 36.5 72 19 142/80 01/09/18 15:36 175/84 01/09/18 15:35 73 20 100 01/09/18 15:35 73 20 01/09/18 15:30 74 26 100 01/09/18 15:30 72 26 01/09/18 15:26 150/77 01/09/18 15:25 74 14 01/09/18 15:25 73 14 98 01/09/18 15:21 131/94 01/09/18 15:20 72 22 01/09/18 15:20 72 22 100 01/09/18 15:16 154/82 01/09/18 15:15 70 19 100 01/09/18 15:15 70 19 01/09/18 15:11 149/80 01/09/18 15:05 36.0 71 16 130/77 98 Nasal Cannula 3 01/09/18 12:21 37.1 70 18 126/72 (90) 95 Room Air Physical Exam General Appearance: no apparent distress, + pertinent finding (Jaundiced) Eyes: + abnormal sclerae exam (Icteric) Neck: supple, no carotid bruits Respiratory/Chest: chest non-tender, lungs clear, normal breath sounds Cardiovascular: regular rate, rhythm, no edema, no gallop Abdomen: normal bowel sounds, soft, + tenderness (RUQ) Extremities: no pedal edema, no calf tenderness Neurologic/Psychiatric: alert, normal mood/affect, oriented x 3 Skin: + jaundice Laboratory Results Results Past 24 Hours Test 01/10/18 07:57 01/10/18 09:00 Range/Units Sodium Level 137 136-145 mmol/L Potassium Level 3.6 3.5-5.1 mmol/L Chloride Level 104 98-107 mmol/L Carbon Dioxide Level 26 21-32 mmol/L Anion Gap 7.0 3-11 mmol/L Blood Urea Nitrogen 17 7-18 mg/dl Creatinine 1.26 0.60-1.20 mg/dl Est Creatinine Clear Calc Drug Dose 35.6 ml/min Estimated GFR () 46.6 Estimated GFR (Non- 40.2 BUN/Creatinine Ratio 13.7 10-20 Random Glucose 108 70-99 mg/dl Calcium Level 8.8 8.5-10.1 mg/dl Magnesium Level 1.7 1.8-2.4 mg/dl Total Bilirubin 6.3 0.2-1 mg/dl Direct Bilirubin 4.8 0-0.2 mg/dl Aspartate Amino Transf (AST/SGOT) 332 15-37 U/L Alanine Aminotransferase (ALT/SGPT) 453 12-78 U/L Alkaline Phosphatase 384 45-117 U/L Total Protein 6.3 6.4-8.2 gm/dl Albumin 2.8 3.4-5.0 gm/dl Lipase 466 73-393 U/L White Blood Count 9.65 4.8-10.8 K/uL Red Blood Count 3.58 4.2-5.4 M/uL Hemoglobin 11.4 12.0-16.0 g/dL Hematocrit 35.0 37-47 % Mean Corpuscular Volume 97.8 80-100 fL Mean Corpuscular Hemoglobin 31.8 25-34 pg Mean Corpuscular Hemoglobin Concent 32.6 32-36 g/dl Platelet Count 194 130-400 K/uL Mean Platelet Volume 11.2 7.4-10.4 fL Neutrophils (%) (Auto) 68.5 % Lymphocytes (%) (Auto) 24.7 % Monocytes (%) (Auto) 5.4 % Eosinophils (%) (Auto) 0.9 % Basophils (%) (Auto) 0.2 % Neutrophils # (Auto) 6.61 1.4-6.5 K/uL Lymphocytes # (Auto) 2.38 1.2-3.4 K/uL Monocytes # (Auto) 0.52 0.11-0.59 K/uL Eosinophils # (Auto) 0.09 0-0.5 K/uL Basophils # (Auto) 0.02 0-0.2 K/uL RDW Standard Deviation 52.4 36.4-46.3 fL RDW Coefficient of Variation 14.7 11.5-14.5 % Immature Granulocyte % (Auto) 0.3 % Immature Granulocyte # (Auto) 0.03 0.00-0.02 K/uL Microbiology Results 01/10/18 Blood Culture, Received Pending 01/10/18 Blood Culture, Received Pending Assessment and Plan Obstructing Jaundice 2/2 Pancreatic Mass - ERCP 01/10: - 10 kiswahili 9cm biliary stent - there was a high grade structure in mild common bowel duct - fine needle biopsy also obtained - EUS 01/10 - 2 round lesions at the left lobe of the liver --> Endoscopic appearance suggest metastasis - Largest 10mmx 13mm - Irregular mass in pancreatic body and tail - 35mm x 30mm, borders poorly defined - Abdominal CT 01/08: 1. A 4.5 x 4.2 cm mass at the pancreatic tail. This is highly suspicious for a pancreatic malignancy. 2. A few hypodense hepatic lesions consistent with metastatic disease. 3. Ill-defined soft tissue abnormality at the hunter hepatis measuring approximately 3.8 cm consistent with metastatic disease. This results in focal narrowing of the common bile duct with moderate intra and extra hepatic bile duct dilatation as well as mild narrowing of the main portal vein. There is also an abrupt cut off of the splenic vein consistent with occlusion and the splenic artery is also narrowed. - Liver US: Multiple hyperechoic masses, largest measuring 2.8 cm. Dilated bile duct 1cm - Abdominal CT: Mass at tail of the pancreas concerning for cancer (4.2 x 4.4cm) - Morphine 4mg IV q4h PRN for pain - Zofran 4mg IV q6h for Nausea Transaminitis and Hyperbilirubinemia - LFTs significantly improved after GI procedures relieving biliary duct obstruction - Cholestyramine PO - Vistaril for pruritis Suspected Pancreatic Cancer - EBUS by GI to obtain pancreatic sample for pathology yesterday --> Path pending - CA 19-9 pending - Oncology following - Continue to follow Hypokalemia - Resolved - Improved to 3.6 - 20 meq Potassium Chloride IV - Monitor with daily BMP Hypomagnesemia (1.7) - Magnesium Sulfate 2gm - Repeat Mag in AM Hypertension - Continue home Indapamide History of Breast Cancer - Continue home Raloxifene DVT - Lovenox 30mg Code Status - Full Resuscitation Resident Physician Supervision Note: I interviewed and examined the patient. Discussed with Dr. Rojas and agree with findings and plan as documented in the note. Any exceptions or clarifications are listed here: None Documented By: Sung Forbes feeling better itching improved eating well no abdominal pain did have fever last night none since d/w gi vitals noted, jaundice improved new dx pancreatic cancer w obstructive jaundice -stented, doing better w jaundice -await pathology - for outpt f/u w oncology fever -no overt sepsis; likely related to ERCP, empiric abx for now back pain -MRI most c/w compression fx eye irritation -improved abdominal pain/nausea - improved hopefully home tomorrow Resident Tracking Resident Involvement: Resident Care Provided Care Provided: Adult Hospital Medicine
--- NOTE | 2018-01-10 11:51 | Hematology/Oncology Prog Note ---
Hematology/Onc Progress Note Date of Service January 10, 2018. Diagnoses Metastatic carcinoma probable pancreatic carcinoma Medications Medications Administered Medications (Trade) Dose Ordered Sig/Rm Route Start Time Stop Time Status Last Admin Dose Admin Morphine Sulfate (MoRPHine SULFATE INJ) 4 mg NOW STAT IV 01/07/18 22:02 01/07/18 22:03 DC 01/07/18 22:09 4 MG Ondansetron HCl (Zofran Inj) 4 mg NOW STAT IV 01/07/18 22:02 01/07/18 22:03 DC 01/07/18 22:08 4 MG Potassium Chloride 100 ml @ 100 mls/hr NOW STAT IV 01/07/18 22:02 01/07/18 23:01 DC 01/07/18 22:09 100 MLS/HR Enoxaparin Sodium (Lovenox Inj) 30 mg Q12 SQ 01/08/18 09:00 02/07/18 08:59 01/10/18 09:52 30 MG Ondansetron HCl (Zofran Inj) 4 mg Q6H PRN IV 01/08/18 02:30 02/07/18 02:29 01/09/18 23:41 4 MG Indapamide (Lozol Tab) 1.25 mg DAILY PO 01/08/18 08:00 02/07/18 08:59 01/10/18 08:20 1.25 MG Raloxifene HCl (Evista Tab) 60 mg DAILY PO 01/08/18 08:00 02/07/18 08:59 01/10/18 08:21 60 MG Morphine Sulfate (MoRPHine SULFATE INJ) 4 mg Q4H PRN IV 01/08/18 02:30 01/22/18 02:29 01/10/18 09:54 4 MG Potassium Chloride (Klor-Con Tab) 40 meq NOW ONCE PO 01/08/18 04:00 01/08/18 04:01 DC 01/08/18 04:12 40 MEQ Magnesium Sulfate 100 ml @ 100 mls/hr Q1H IV 01/08/18 04:00 01/08/18 05:59 DC 01/08/18 05:19 100 MLS/HR Hydroxyzine HCl (Vistaril Tab) 25 mg 0900 ONCE PO 01/08/18 09:00 01/08/18 09:01 DC 01/08/18 08:58 25 MG Hydroxyzine HCl (Vistaril Tab) 25 mg Q6H PRN PO 01/08/18 08:45 02/07/18 08:44 01/10/18 08:19 25 MG Cefoxitin Sodium 1000 mg/Dextrose 60 ml @ 100 mls/hr Q8 IV 01/08/18 14:00 01/09/18 13:59 DC 01/09/18 05:53 100 MLS/HR Lactated Ringer's 1,000 ml @ 125 mls/hr Q8H IV 01/08/18 22:00 01/09/18 13:59 DC 01/09/18 05:53 125 MLS/HR Cholestyramine Resin (Questran Powder Light) 4 gm BID@10,22 PO 01/09/18 10:00 02/08/18 09:59 01/10/18 10:12 4 GM Diphenhydramine HCl (Benadryl Inj) 12.5 mg NOW STAT IV 01/09/18 01:11 01/09/18 01:15 DC 01/09/18 01:17 12.5 MG Ciprofloxacin (Cipro Tab) 500 mg BID PO 01/09/18 17:15 01/12/18 08:01 01/10/18 08:21 500 MG Potassium Chloride 100 ml @ 100 mls/hr Q1H IV 01/09/18 18:00 01/09/18 19:59 DC 01/09/18 19:14 100 MLS/HR Artificial Tears (Lacri-Lube Oph Oint) 1 appln NOW ONCE OP 01/09/18 18:30 01/09/18 18:34 DC 01/09/18 19:15 1 APPLN Artificial Tears (Lacri-Lube Oph Oint) 1 appln Q24H PRN OP 01/09/18 18:30 02/08/18 18:29 01/09/18 23:46 1 APPLN Acetaminophen (Tylenol Tab) 650 mg Q6H PRN PO 01/10/18 01:30 02/09/18 01:29 01/10/18 01:28 650 MG Piperacillin Sod/ Tazobactam Sod 3.375 gm/Dextrose 115 ml @ 230 mls/hr NOW ONCE IV 01/10/18 01:45 01/10/18 02:14 DC 01/10/18 01:52 230 MLS/HR Piperacillin Sod/ Tazobactam Sod 3.375 gm/Dextrose 115 ml @ 28.75 mls/ hr Q8H IV 01/10/18 06:00 01/12/18 05:59 01/10/18 06:35 28.75 MLS/HR Subjective Biliary stent and biopsies done yesterday. The patient tolerated procedure well and she states she feels very well this morning. Bilirubin has drifted down this morning. She denies nausea or vomiting. Review of Systems: Constitutional: Negative for night sweats, or fever Eyes: Negative for event change of vision ENT: Negative for epistaxis, nasal discharge, sore throat, or deafness Cardiovascular: Negative for chest pain, palpitations, dizziness, diaphoresis Respiratory: Negative for new shortness of breath,hemoptysis, or purulent cough Gastrointestinal: Negative for diarrhea, hematemesis, melena, nausea, vomiting , or dyspepsia Integumentary (skin): Negative for rash she remains jaundice Genitourinary: Negative for urinary frequency, hematuria, or dysuria Neurological: Negative for weakness, seizure activity, headache, or dizziness Lymphatic/Hematologic: Negative for petechiae, bleeding or new adenopathy Musculoskeletal: Negative for new joint or back pain Allergic/Immunologic: Negative for unusual rash or pruritis. Vital Signs Vital Signs Past 12 Hours Date Time Temp Pulse Resp B/P (MAP) Pulse Ox O2 Delivery O2 Flow Rate FiO2 01/10/18 10:52 36.9 75 18 126/72 (90) 96 Room Air 01/10/18 08:00 96 Room Air 3.0 01/10/18 06:54 36.8 75 18 134/72 (92) 96 Room Air 01/10/18 03:31 77 16 117/65 (82) 93 Room Air 01/10/18 03:27 37.1 01/10/18 03:21 37.7 01/10/18 00:00 Room Air 01/09/18 23:51 38.1 Physical Exam Constitutional: vitals are stable. Eyes: Eyes are ERIKA EOMI without conjuctival erythema he does have scleral icterus ENT: External examination was negative for masses. Neck: Negative for masses or palpable thyromegaly Respiratory: Lung sounds were generally clear bilaterally Cardiovascular: Heart was RRR without significant murmur, gallops aoe rubs Gastrointestinal: No palpable hepatic or splenomegaly. The abdomen was soft with normal bowel sounds. Lymphatic system: there was no palpable peripheral lymphadenopathy Musculoskeletal System: The musculoskeletal system seemed concordant with age. Skin: Positive for jaundice Neurologic exam: The exam was negative for any focal findings. Deep tendon reflexes were equal and symmetrical. Psychiatric exam: Was essentially negative with normal mood and effect. Breast exam: Extremities: Negative for edema Laboratory Last 24 Hours Test 01/10/18 07:57 01/10/18 09:00 Sodium Level 137 mmol/L Potassium Level 3.6 mmol/L Chloride Level 104 mmol/L Carbon Dioxide Level 26 mmol/L Anion Gap 7.0 mmol/L Blood Urea Nitrogen 17 mg/dl Creatinine 1.26 mg/dl Est Creatinine Clear Calc Drug Dose 35.6 ml/min Estimated GFR () 46.6 Estimated GFR (Non- 40.2 BUN/Creatinine Ratio 13.7 Random Glucose 108 mg/dl Calcium Level 8.8 mg/dl Magnesium Level 1.7 mg/dl Total Bilirubin 6.3 mg/dl Direct Bilirubin 4.8 mg/dl Aspartate Amino Transf (AST/SGOT) 332 U/L Alanine Aminotransferase (ALT/SGPT) 453 U/L Alkaline Phosphatase 384 U/L Total Protein 6.3 gm/dl Albumin 2.8 gm/dl Lipase 466 U/L White Blood Count 9.65 K/uL Red Blood Count 3.58 M/uL Hemoglobin 11.4 g/dL Hematocrit 35.0 % Mean Corpuscular Volume 97.8 fL Mean Corpuscular Hemoglobin 31.8 pg Mean Corpuscular Hemoglobin Concent 32.6 g/dl Platelet Count 194 K/uL Mean Platelet Volume 11.2 fL Neutrophils (%) (Auto) 68.5 % Lymphocytes (%) (Auto) 24.7 % Monocytes (%) (Auto) 5.4 % Eosinophils (%) (Auto) 0.9 % Basophils (%) (Auto) 0.2 % Neutrophils # (Auto) 6.61 K/uL Lymphocytes # (Auto) 2.38 K/uL Monocytes # (Auto) 0.52 K/uL Eosinophils # (Auto) 0.09 K/uL Basophils # (Auto) 0.02 K/uL RDW Standard Deviation 52.4 fL RDW Coefficient of Variation 14.7 % Immature Granulocyte % (Auto) 0.3 % Immature Granulocyte # (Auto) 0.03 K/uL Assessment & Plan Bilirubin headed down the patient seems to be doing well. Pathology has reviewed what material they have. There are able to determine the carcinoma most likely adenocarcinoma. I did inform them that she has a history of breast cancer and if there is enough material than some markers will be done. The patient was informed of the above results. Patient also reviews with me that as she recalls there is BRCA positivity and her past. Recall that she had breast cancer many years ago and the family history is dotted with many members having breast cancer. There is an increased risk of pancreatic cancer with BRCA positivity. We will want to see her in our clinic. I have asked her to see if she can provide previous information in regards to BRCA positivity because in addition this could impact the kind of treatment we may give. Will arrange for follow-up in our clinic to occur early next week.
--- NOTE | 2018-01-10 13:38 | DIAGNOSTIC IMAGING REPORT ---
THORACIC SPINE MRI HISTORY: Back pain. eval T11/12 disc//lesion seen on CT abd/pelvis, dx pancreatic CA TECHNIQUE: Multiplanar multisequence MRI of the thoracic spine was performed without the use of contrast. COMPARISON: Abdomen and pelvis CT 01/08/2018. FINDINGS: There is again noted a mild inferior endplate compression fracture at T11.. This is consistent with an acute fracture given the marrow edema. There is also patchy marrow edema within the superior and inferior endplate of T12 without associated fracture. No definite suspicious osseous lesions identified. Minimal prevertebral soft tissue swelling. No significant disc space signal abnormality. Therefore, these findings favor a benign acute compression fracture. There is an old superior endplate compression fracture at L1. A few scattered vertebral body hemangiomas are noted. Mild degenerative disc disease throughout the majority of the thoracic spine. Small broad-based posterior disc bulges within the lower thoracic spine without significant central canal narrowing. However, there is moderate to severe central canal narrowing at L1-L2 due to the broad-based posterior disc bulge and ligamentum and facet hypertrophy. There is a 14 mm exophytic T2 hyperintense and T1 slightly hyperintense lesion within the left kidney. This is incompletely characterize on this noncontrast study but favors a proteinaceous/hemorrhagic cyst. The thoracic spinal cord is normal and course, caliber, and signal intensity. IMPRESSION: 1. An acute mild inferior endplate compression fracture at T11. This favors a benign compression fracture. There is also normal signal intensity within the T11-T12 disc space. Therefore, a discitis/osteomyelitis is also considered less likely. 2. Patchy marrow edema within the superior and inferior endplate of T12 which favors degenerative change. 3. No suspicious osseous lesions on this noncontrast study. 4. No significant central canal narrowing within the thoracic spine. 5. Moderate to severe central canal narrowing at L1-L2 due to a broad-based posterior disc bulge and ligamentum and facet hypertrophy. Electronically signed by: Nick Fletcher M.D. 01/10/2018 1:36 PM Dictated Date/Time: 01/10/2018 1:21 PM
--- NOTE | 2018-01-10 13:54 | PROGRESS NOTE ---
DATE: 01/10/2018 SUBJECTIVE: The patient has less itching today and less abdominal pain. OBJECTIVE: She is still fairly jaundiced, but her bilirubin has dropped from 14.3 to 6.3 overnight after being stented yesterday by Dr. Jacinto. He also did an endoscopic ultrasound with biopsies of the liver as well as the pancreatic tail. These biopsies, the final pathology is pending, but the preliminary report on the liver biopsy at least showed carcinoma cells. The patient has subsequently been seen by Dr. Thurston, and outpatient followup next week is being planned. Overnight, the patient developed a low grade fever of 37.7, and her lipase bumped from 197 to 466 overnight as well. She continues on IV antibiotics and is currently afebrile with a normal white count. IMPRESSION: The patient has carcinoma in the liver, probably of pancreatic origin, but she did have a prior history of breast cancer, and this is being evaluated pathologically. I did review all of these results with the patient, her , and her daughter who is a physician in [place]. They are aware of the status of her disease at this point and that they are waiting on the final pathology before the oncologist can develop a treatment plan as an outpatient. Because of her fever and bump in lipase, the plan is to keep her overnight on antibiotics and probably send her home tomorrow on a few days of p.o. Cipro. All the patient's and family's questions have been answered. We will continue to follow the patient.
[2018-01-11] MEDS: hydrOXYzine HCL 25 MG TAB PO PRN ×3 (03:02→15:41)
[2018-01-11] MEDS: MoRPHine SULFATE 4 MG/ML 1 ML CARP\\VIAL IV PRN ×3 (03:03→15:42)
[2018-01-11 04:00] VITALS: BP 113/62; PULSE 71; TEMP 37.4; O2SAT 93
[2018-01-11] MEDS: PIPERACILL/TAZOBAC IV 3.375 GM in D5W 100ML IV SCH ×2 (06:06→13:34)
[2018-01-11 07:27] VITALS: BP 110/69; PULSE 73; TEMP 37.4; O2SAT 91
[2018-01-11 08:00] VITALS: O2SAT 91
[2018-01-11] MEDS ORDERED: ENOXAPARIN 30 MG/0.3 ML SYR SQ SCH (08:00)
[2018-01-11] MEDS: INDAPAMIDE 1.25 MG TAB PO SCH (08:27)
[2018-01-11] MEDS: RALOXIFENE 60 MG TAB PO SCH (08:28)
[2018-01-11 08:42] LABS: CREATININE 1.27 mg/dl (0.60-1.20)
[2018-01-11 08:45] LABS: ALBUMIN 2.6 gm/dl (3.4-5.0); TOTAL PROTEIN 6.3 gm/dl (6.4-8.2)
[2018-01-11 08:46] LABS: HEMATOCRIT 31.1 % (37-47); HEMOGLOBIN 10.4 g/dL (12.0-16.0); MEAN CELL VOLUME 98.1 fL (80-100); MEAN CORPUSCULAR HEMOGLOBIN 32.8 pg (25-34); MEAN CORPUSCULAR HGB CONC 33.4 g/dl (32-36); PLATELET COUNT 212 K/uL (130-400); RED CELL DISTRIBUTION WIDTH CV 14.4 % (11.5-14.5); RED CELL DISTRIBUTION WIDTH SD 51.3 fL (36.4-46.3); WHITE BLOOD COUNT 9.66 K/uL (4.8-10.8)
[2018-01-11] MEDS: CHOLESTYRAMINE LIGHT 4 GM PKT PO SCH (10:15)
[2018-01-11 11:28] VITALS: BP 109/71; PULSE 72; TEMP 37.3; O2SAT 93
[2018-01-11 13:42] LABS: CA 19-9 TC 4698 236 U/ML (<34); HEPATITIS A IGM TC 51813E NON-REACTIVE (NON-REACTIVE); HEPATITIS B CORE IGM TC51854R NON-REACTIVE (NON-REACTIVE)
[2018-01-11] MEDS ORDERED: ONDA4TAB46 PO (14:48)
[2018-01-11] MEDS ORDERED: CIPR-255 PO (14:48)
--- NOTE | 2018-01-11 15:00 | Discharge Instructions ---
Discharge Instructions Date of Service January 11, 2018. Admission Reason for Admission: Abdominal Pain, Obstructive Jaundice Discharge Discharge Diagnosis / Problem: Obstructive Jaundice Discharge Goals Goal(s): Decrease discomfort, Therapeutic intervention Activity Recommendations Activity Limitations: as noted below Lifting Limitations: gradually increase as tolerated Exercise/Sports Limitations: as tolerated Shower/Bathe: no limitations Driving or Machine Use: no limitations . Instructions / Follow-Up Instructions / Follow-Up You initially presented to the hospital for worsening abdominal pain and were found to have mass in your pancreas that was obstructing your bile duct. Dr. Jacinto successfully placed a stent the resolve this obstruction and your bilirubin levels and other symptoms have significantly improved. At this time Oncology is working on a definitive diagnosis and will work closely with you going forward in addition to Gastroenterology and Dr. Marks. Medications: - Tramadol 50mg: Take 1 table every 4 hours as needed with pain. This may make you constipated so if taking frequently make sure to add stool softener - Ciprofloxacin 500mg: Take 1 tablet every 12 hours for the next 5 days. This medication is an antibiotic to cover for infection after your stent procedure - Zofran 4mg: Take 1 Tablet every 4 hours as needed for nausea. - Vistaril 25mg: Take 1 tablet every 6 hours as needed for itching - Eliquis 5mg: First Week: Take 10mg (2 tablets) by mouth twice daily. Afterwards: Take 5mg (one tablet) by mouth twice daily. This medication is for blood thinning Follow Up: - Follow up with scheduled Oncology visit next week - Follow up with Gastroenterology in 4 weeks for re-evaluation of your stent - Follow up with Dr. Marks at scheduled appointment If you present with any worsening abdominal pain, vomiting, fatigue, confusion, shortness of breath Current Hospital Diet Patient's current hospital diet: Regular Diet Discharge Diet Recommended Diet: Regular Diet Procedures Procedures Performed: Upper Endoscopic Ultrasonography. Fine Needle Aspiration, Fine Needle Biopsy, Endoscopic Retrograde Cholangiopancreatogram Pending Studies Studies pending at discharge: no Medical Emergencies . Who to Call and When: Medical Emergencies: If at any time you feel your situation is an emergency, please call 911 immediately. . Non-Emergent Contact Non-Emergency issues call your: Primary Care Provider . . "Provider Documentation" section prepared by Eric Rojas. . Resident Tracking Resident Involvement: Resident Care Provided Care Provided: Adult [facility] Medicine
[2018-01-11] MEDS ORDERED: ULT50X PO (15:01)
[2018-01-11] MEDS ORDERED: HYDR25CA PO (15:03)
[2018-01-11] MEDS ORDERED: APIX1TAB3 PO (15:14)
[2018-01-11 15:19] VITALS: BP 118/76; PULSE 70; TEMP 36.5; O2SAT 93
[2018-01-11 15:28] VITALS: BP 118/76; PULSE 70; TEMP 36.5; O2SAT 93
--- NOTE | 2018-01-11 15:57 | Discharge Summary ---
Discharge Summary Date of Service January 11, 2018. Discharge Summary Admission Date: January 08, 2018 at 02:39 Discharge Date: January 11, 2018 Discharge Disposition: Home Principal Diagnosis: Obstructing Jaundice, Pancreatic Mass Problems/Secondary Diagnoses: Hyperbilirubinemia Medication Reconciliation New Medications: Apixaban (Eliquis) 5 Mg Tab 5 MG PO BID for 30 Days, #60 TAB Apixaban (Eliquis) 5 Mg Tab 10 MG PO BID for 7 Days, #28 TAB Ciprofloxacin Hcl (Cipro) 500 Mg Tab 1 TAB PO BID for 5 Days, #10 TAB Hydroxyzine Pamoate (Vistaril) 25 Mg Cap 1 CAP PO TID, #30 CAP 1 Refill Ondansetron Hcl (Zofran) 4 Mg Tab 4 MG PO Q6H PRN for Nausea, #20 TAB Tramadol HCl (Tramadol HCl) 50 Mg Tab 1 TAB PO QID PRN for Pain, #30 Continued Medications: Biotin (Biotin 5000) 5 Mg Cap 5 MG PO DAILY Calcium Carbonate-Vitamin D W/ (Caltrate 600 Plus) 1 Tab Tab 1 TAB PO DAILY, TAB Diclofenac Sodium (Topical) (Voltaren 1% Top Gel) 1 % Gel 1 APPLN TOP PRN UD for Pain Fluticasone Propionate (Nasal) (Flonase Allergy Relief) 50 Mcg/Act Spr 2 SPRAYS MICHAEL DAILY Glucosamine-Chondroitin (Osteo Bi-Flex Regular Str) 1 Tab Tab 1 TAB PO DAILY Hydroxyzine Hcl (Atarax) 25 Mg Tab 25 MG PO HS PRN for , TAB Indapamide (Lozol) 1.25 Mg Tab 1.25 MG PO DAILY, TAB Metronidazole (Topical) (Metrogel) 0.75 % Gel 1 APPLN TOP PRN UD Multiple Vitamins W/ Minerals (Centrum Silver 50+Women) 1 Tab Tab 1 TAB PO DAILY Raloxifene Hcl (Evista) 60 Mg Tab 60 MG PO DAILY, TAB Tramadol (Ultram) 50 Mg Tab 50-100 MG PO Q4 PRN for Pain, TAB Discontinued Medications: Ibuprofen Tab (Advil) 200 Mg Tab 200 MG PO TID PRN for Pain, TAB Discharge Exam Review of Systems: Constitutional: No fever, No chills, No weight loss, No fatigue Respiratory: No cough, No sputum, No wheezing, No shortness of breath, No dyspnea on exertion Cardiovascular: No chest pain, No edema, No palpitations Abdomen: No pain, No nausea, No vomiting, No diarrhea, No constipation Musculoskeletal: No joint pain, No calf pain Genitourinary - Female: No dysuria, No urinary frequency Neurologic: No memory loss, No numbness/tingling Physical Exam: General Appearance: WD/WN, no apparent distress Eyes: + pertinent finding (mildly icteric) Neck: supple, no carotid bruits Respiratory/Chest: chest non-tender, lungs clear, normal breath sounds Cardiovascular: regular rate, rhythm, no edema, no gallop Abdomen / GI: normal bowel sounds, non tender, soft Extremities: no calf tenderness, no pedal edema Neurologic/Psychiatric: no motor/sensory deficits, alert, oriented x 3 Hospital Course Obstructing Jaundice 2/2 Pancreatic Mass - Patient presented with jaundice and abdominal pain --> Most likely secondary to obstruction of the biliary duct by a pancreatic mass - Taken for ERCP and EUS where stent was placed and biopsies taken - Improvement of itching and lfts after procedure - Patient continues to have itching and pain although they have been well controlled with PO medications - Abdominal CT 01/08: 1. A 4.5 x 4.2 cm mass at the pancreatic tail. This is highly suspicious for a pancreatic malignancy. 2. A few hypodense hepatic lesions consistent with metastatic disease. 3. Ill-defined soft tissue abnormality at the hunter hepatis measuring approximately 3.8 cm consistent with metastatic disease. This results in focal narrowing of the common bile duct with moderate intra and extra hepatic bile duct dilatation as well as mild narrowing of the main portal vein. There is also an abrupt cut off of the splenic vein consistent with occlusion and the splenic artery is also narrowed. - Liver US: Multiple hyperechoic masses, largest measuring 2.8 cm. Dilated bile duct 1cm - ERCP 01/10: - 10 zambian 9cm biliary stent - there was a high grade structure in mild common bowel duct - fine needle biopsy also obtained - EUS 01/10 - 2 round lesions at the left lobe of the liver --> Endoscopic appearance suggest metastasis - Largest 10mmx 13mm - Irregular mass in pancreatic body and tail - 35mm x 30mm, borders poorly defined Transaminitis and Hyperbilirubinemia - LFTs significantly improved after GI procedures relieving biliary duct obstruction - Cholestyramine PO - Vistaril for pruritis Suspected Pancreatic Cancer - EBUS by GI to obtain pancreatic sample for pathology yesterday --> Path pending - CA 19-9 pending - Oncology following - Continue to follow Hypokalemia - Resolved - Improved to 3.6 - 20 meq Potassium Chloride IV - Monitor with daily BMP Hypomagnesemia (1.7) - Magnesium Sulfate 2gm - Repeat Mag in AM Hypertension - Continue home Indapamide History of Breast Cancer - Continue home Raloxifene splenic vein thrombosis (asymptomatic but present) - Lovenox in hospital - Discharged on Eliquis Code Status - Full Resuscitation Resident Physician Supervision Note: I interviewed and examined the patient. Discussed with Dr. Rojas and agree with findings and plan as documented in the note. Any exceptions or clarifications are listed here: None Documented By: Sung Forbes feeling good overall low grade temp but overall trend is improvement vitals noted nad breathing unlabored far less jaundiced pancreatic CA w obstructive jaundice -improved post stenting -oncology f/u next week -close and then frequent PCP f/u -GI ~4wks to eval status of stent and possible exchange in ~6wks splenic vein thrombosis -eliquis, f/u stable for discharge, otherwise as above Total Time Spent: Greater than 30 minutes This includes examination of the patient, discharge planning, medication reconciliation, and communication with other providers. Discharge Instructions Please refer to the electronic Patient Visit Report (Discharge Instructions) for additional information. Additional Copies To Devante Marks M.D. Resident Tracking Resident Involvement: Resident Care Provided Care Provided: Adult [facility] Medicine
== END 2018-01-11 16:33 | disposition home or self-care (01) | DRG 420 ==
LOC: C.EDB 20:34 → C.4E 01-08 02:39 → ENRESERV 01-08 03:08
PROVIDERS: ADMIT Student in an Organized Health Care Education/Training Program; ATTEND Family Medicine
PROC: 0F9G4ZX Drainage of Pancreas, Percutaneous Endoscopic Approach, Diagnostic (ICD-10-PCS; principal; 2018-01-09 12:30)
PROC: 0FB24ZX Excision of Left Lobe Liver, Percutaneous Endoscopic Approach, Diagnostic (ICD-10-PCS; principal; 2018-01-09 12:30)
PROC: 0F798DZ Dilation of Common Bile Duct with Intraluminal Device, Via Natural or Artificial Opening Endoscopic (ICD-10-PCS; principal; 2018-01-09 12:30)
PROC: 0F924ZX Drainage of Left Lobe Liver, Percutaneous Endoscopic Approach, Diagnostic (ICD-10-PCS; principal; 2018-01-09 12:30)
DX: C25.2 Malignant neoplasm of tail of pancreas (principal); K83.1 Obstruction of bile duct; K72.00 Acute and subacute hepatic failure without coma; C78.7 Secondary malignant neoplasm of liver and intrahepatic bile duct; D68.59 Other primary thrombophilia; I74.8 Embolism and thrombosis of other arteries; M48.54XA Collapsed vertebra, not elsewhere classified, thoracic region, initial encounter for fracture; E87.6 Hypokalemia; E83.42 Hypomagnesemia; L29.9 Pruritus, unspecified; R50.82 Postprocedural fever; H57.8 Other specified disorders of eye and adnexa; I10 Essential (primary) hypertension; M81.0 Age-related osteoporosis without current pathological fracture; Z85.3 Personal history of malignant neoplasm of breast; Z15.01 Genetic susceptibility to malignant neoplasm of breast; Z92.3 Personal history of irradiation; Z87.891 Personal history of nicotine dependence; Z79.810 Long term (current) use of selective estrogen receptor modulators (SERMs); Z79.899 Other long term (current) drug therapy; Z80.3 Family history of malignant neoplasm of breast; Z83.3 Family history of diabetes mellitus; Z82.49 Family history of ischemic heart disease and other diseases of the circulatory system; Z84.1 Family history of disorders of kidney and ureter

== ENCOUNTER 2018-01-19 05:15 | Day surgery (SDC) | payer BC ==
[2018-01-18 14:59] VITALS: BMI 27.0
[~2018-01-19] VITALS: Ht 162.6 cm; Wt 74.1 kg
[~2018-01-19 05:15] MED LIST changes: +APIX1TAB3 PO; +BIOTCAP2 PO; +CALCTAB7 PO; +DICL1GEL12 TOP; -EVS60 PO; +FLUT0.15 NAE; +GLUCTAB18 PO; +HYDR-3124 PO; +INDA1TAB3 PO; +METR0.7527 TOP; +MULT-1092 PO; +ONDA4TAB46 PO; -OXYC-57 PO; +RALO60TA30 PO; +TRAM-10 PO
[2018-01-19 05:46] VITALS: BP 113/67; PULSE 70; TEMP 36.8; O2SAT 94; Ht 162.6 cm; Wt 74.1 kg
[2018-01-19] MEDS ORDERED: SODIUM CHLORIDE 0.9% 1000ML 1,000 ML IV SCH ×2 (06:00→08:05)
[2018-01-19] MEDS ORDERED: LIDOCAINE HCL 2% 2 ML VIAL (20MG/ML) ONE (06:44)
[2018-01-19] MEDS ORDERED: PROPOFOL IV EMULSION 10 MG/ML 20 ML VIAL ONE (06:44)
[2018-01-19] MEDS ORDERED: MIDAZOLAM HCL 1 MG/ML 2ML VIAL ONE (06:45)
[2018-01-19] MEDS ORDERED: FENTANYL CITRATE INJ 50 MCG/1 ML 2 ML VIAL ONE (06:45)
--- NOTE | 2018-01-19 06:58 | History & Physical Bridge Note ---
H&P Re-Evaluation Bridge Note: I have examined the patient, reviewed the History & Physical and in the interval since the performance of the History & Physical I have noted the following changes of clinical significance: No changes noted. we discussed risks ( bleeding/infection/pneumothorax/dvt/pe/port malfunction etc...) questions answered. will proceed with subclavian/IJ mediport insertion.
[2018-01-19] MEDS ORDERED: BUPIVACAINE 0.5 % 5 MG/1 ML PF 10ML VIAL ONE (07:03)
[2018-01-19] MEDS ORDERED: HEPARIN SOD (PORCINE) 1000 UNIT/ML 10 ML VIAL ONE (07:03)
[2018-01-19] MEDS ORDERED: EpINEphrine INJ 1MG/ML AMP 1 MG/ML AMP ONE (07:04)
[2018-01-19] MEDS ORDERED: BUPIVACAINE 0.25% 30 ML VIAL ONE (07:05)
[2018-01-19 07:12] LABS: CALCIUM 9.3 mg/dl (8.5-10.1); CREATININE 1.3 mg/dl (0.60-1.20)
[2018-01-19] MEDS ORDERED: CEFAZOLIN SOD 1 GM VIAL ONE (07:33)
[2018-01-19] MEDS ORDERED: ONDANSETRON INJ 2 MG/ML 2 ML VIAL ONE (07:33)
--- NOTE | 2018-01-19 07:50 | [facility] Post Operative Brief Note ---
Immediate Operative Summary Operative Date January 19, 2018. Pre-Operative Diagnosis Pancreatic Cancer Post-Operative Diagnosis Same as preoperative Procedure(s) Performed Insertion of Aport, Right Subclavian Surgeon Dr. Anup Lawrence Roll Former Surgeon(s) Rosina Fair PA-C Estimated Blood Loss 5ml Findings Consistent with Post-Op Diagnosis Specimens none per surgeon Anesthesia Type MAC Complication(s) none
--- NOTE | 2018-01-19 07:53 | [facility] Operative Report ---
Operative Report Operative Date January 19, 2018. Pre-Operative Diagnosis Pancreatic Cancer Post-Operative Diagnosis Same as preoperative Procedure(s) Performed Insertion of Aport, Right Subclavian Surgeon Dr. Anup Lawrence Jig Worker Surgeon(s) Rosina Fair PA-C Estimated Blood Loss 5ml Specimens none per surgeon Anesthesia Type MAC Complication(s) none Description of Procedure After informed consent was obtained the patient was taken the operating room placed in supine position. IV sedation was administered by anesthesia and titrated to effect. The right arm was then tucked and a rolled towel was placed between his shoulder blades. The upper chest area was sterilely prepped and draped in usual fashion. I used Marcaine with epinephrine to localize the skin just below the angle of the clavicle. I also used Marcaine to localize the periosteum of the clavicle. We then used a 15 blade scalpel to make a horizontal incision. I carried this down through the soft tissue using electrocautery to the pectoralis fascia. I then used blunt finger dissection to create a small pocket. I then used an 18-gauge finder needle to access the subclavian vein without difficulty. A guidewire was advanced under fluoroscopy into the superior vena cava. We then measured and cut the catheter to appropriate size and then thoroughly flushed the entire system with a heparin solution. Next we advanced a vascular dilator with peel-away sheath over the guidewire again using fluoroscopy. We then pulled out the dilator as well as the guidewire leaving the peel-away sheath in place. The catheter was advanced through the peel-away sheath and the port itself was placed into the housing pocket. We then peeled the sheath away leaving the catheter. We verified position using fluoroscopy. The catheter was then flushed with heparin solution. It withdrew dark venous blood easily. The port was then secured to the muscle using 0 Ethibond with 3 point fixation. The wound was thoroughly irrigated and closed in 2 layers using 3-0 Monocryl for both layers. A sterile dressing was applied. The patient was awakened and transferred to recovery in stable condition. A postoperative portable chest x-ray is currently pending to rule out pneumothorax and the verify catheter position. My physician family medicine physician assistant was present for the entire procedure. She assisted in prepping the patient, assisted with placement of the port, retracted for suturing, and closed the wound as well as placed the dressings. I attest to the content of the Intraoperative Record and any orders documented therein. Any exceptions are noted below. I attest to the content of the Intraoperative Record and any orders documented therein. Any exceptions are noted below.
--- NOTE | 2018-01-19 08:12 | Discharge Instructions ---
Discharge Instructions Date of Service January 19, 2018. Admission Reason for Admission: Pancreatic Cancer Discharge Discharge Diagnosis / Problem: Pancreatic Cancer Discharge Goals Goal(s): Decrease discomfort, Improve function Activity Recommendations Activity Limitations: as noted below Lifting Limitations: no more than 10 pounds Exercise/Sports Limitations: gradually increase as tolerated May Resume Sexual Activity: when tolerated Shower/Bathe: tomorrow Driving or Machine Use: resume 1 day after discharge . Instructions / Follow-Up Instructions / Follow-Up Please follow Dr. Thurston's instructions for resuming your Eliquis. You may remove your dressing in 24 hrs. You may shower, but please do not soak or scrub your incision. For pain control you may take Acetaminophen (Tylenol) 1-2 tablets every 4-6 hrs as needed for pain. Do no exceed more than 10 tablets in a 24 hour period. Please call the General Surgery Clinic at [phone] with any questions or concerns. Current Hospital Diet Patient's current hospital diet: Discharge Diet Recommended Diet: Regular Diet Procedures Procedures Performed: Insertion of Aport, Right Subclavian Pending Studies Studies pending at discharge: no Medical Emergencies . Who to Call and When: Medical Emergencies: If at any time you feel your situation is an emergency, please call 911 immediately. . Non-Emergent Contact Non-Emergency issues call your: Primary Care Provider, Surgeon Call Non-Emergent contact if: temperature is above 101.5, your pain is not controlled, wound has increased drainage, wound has increased redness . "Provider Documentation" section prepared by Rosina Fair. .
[2018-01-19] MEDS ORDERED: HYDROCODONE/ACETAMIN 5/325MG TAB PO PRN ×2 (08:15)
[2018-01-19] MEDS ORDERED: ONDANSETRON INJ 2 MG/ML 2 ML VIAL IV PRN (08:15)
--- NOTE | 2018-01-19 08:26 | DIAGNOSTIC IMAGING REPORT ---
CHEST ONE VIEW PORTABLE CLINICAL HISTORY: 82 years-old Female presenting with s/p port placement, pt in PACU. TECHNIQUE: Portable upright AP view of the chest was obtained. COMPARISON: 01/07/2018. FINDINGS: Right subclavian Mediport terminates in the lower SVC. Cardiomediastinal silhouette normal. Surgical clips noted in the left axilla. No focal opacity. No large effusion or pneumothorax. Osseous structures normal. Upper abdomen normal. IMPRESSION: 1. Interval placement of right subclavian Mediport, which is appropriately positioned. No pneumothorax. Electronically signed by: Josh Scott M.D. 01/19/2018 8:25 AM Dictated Date/Time: 01/19/2018 8:24 AM
--- NOTE | 2018-01-19 08:27 | Anesthesiology Progress Note ---
Anesthesia Post Op Note Date & Time January 19, 2018 at 08:26 Vital Signs Pain Intensity: 0 Vital Signs Past 12 Hours Date Time Temp Pulse Resp B/P (MAP) Pulse Ox O2 Delivery O2 Flow Rate FiO2 01/19/18 08:20 65 18 115/64 97 Room Air 01/19/18 08:10 64 16 105/59 96 Room Air 01/19/18 08:05 36.0 68 16 125/66 98 Oxymask 3 01/19/18 05:46 36.8 70 16 113/67 (82) 94 Room Air Notes Mental Status: alert / awake / arousable, participated in evaluation Nausea / Vomiting: adequately controlled Pain: adequately controlled Airway Patency, RR, SpO2: stable & adequate BP & HR: stable & adequate Hydration State: stable & adequate Anesthetic Complications: no major complications apparent
[2018-01-19] MEDS ORDERED: EpHEDrine SULFATE INJ 50 MG/ML AMP IV PRN (08:30)
[2018-01-19] MEDS ORDERED: ATROPINE SULFATE 0.1 MG/ML 5ML SYR IV PRN (08:30)
[2018-01-19 08:35] VITALS: BP 119/65; PULSE 72; TEMP 36.6; O2SAT 98
[2018-01-19 09:05] VITALS: BP 115/62; PULSE 67; TEMP 36.4; O2SAT 98
== END 2018-01-19 09:55 | disposition home or self-care (01) ==
LOC: C.ACU 05:15
PROVIDERS: ATTEND Surgery
DX: D49.0 Neoplasm of unspecified behavior of digestive system (principal); Z85.3 Personal history of malignant neoplasm of breast; Z79.01 Long term (current) use of anticoagulants; I10 Essential (primary) hypertension; M85.80 Other specified disorders of bone density and structure, unspecified site; M13.0 Polyarthritis, unspecified; E55.9 Vitamin D deficiency, unspecified; Z82.49 Family history of ischemic heart disease and other diseases of the circulatory system; Z84.1 Family history of disorders of kidney and ureter; Z83.3 Family history of diabetes mellitus; Z82.69 Family history of other diseases of the musculoskeletal system and connective tissue; Z87.891 Personal history of nicotine dependence; M06.9 Rheumatoid arthritis, unspecified

== ENCOUNTER → 2018-02-22 | Outpatient (CLI) | payer BC ==
[~2018-02-22] MED LIST changes: -APIX1TAB3 PO; -BIOTCAP2 PO; -CALCTAB7 PO; +CIPR1TAB11 PO; +CLC100 PO; -GLUCTAB18 PO; +GRANISETRON; +MCRK20 PO; +MRN25 PO; +MTR600X PO; -MULT-1092 PO; +OXYC20TA50 PO; +PRED10TA PO; +PROC10TA PO; +[UNRECOGNIZED DRUG - OTHER]
== END | disposition home or self-care (01) ==
LOC: C.FOODA 12:38
PROVIDERS: ATTEND Internal Medicine Hematology & Oncology
DX: Z01.89 Encounter for other specified special examinations (principal)

== ENCOUNTER → 2018-03-21 | Outpatient (CLI) | payer BC ==
[~2018-03-21] MED LIST changes: -CIPR1TAB11 PO; -GRANISETRON; -PRED10TA PO; -[UNRECOGNIZED DRUG - OTHER]
[2018-03-21 15:00] LABS: BASO % 0.3 %; BASO ABS # 0.01 K/uL (0-0.2); EOS % 2.5 %; EOS ABS # 0.08 K/uL (0-0.5); HEMATOCRIT 24.9 % (37-47); HEMOGLOBIN 8.2 g/dL (12.0-16.0); IG# 0.03 K/uL (0.00-0.02); LYMPH % 35.4 %; LYMPH ABS # 1.13 K/uL (1.2-3.4); MEAN CELL VOLUME 92.6 fL (80-100); MEAN CORPUSCULAR HEMOGLOBIN 30.5 pg (25-34); MEAN CORPUSCULAR HGB CONC 32.9 g/dl (32-36); MEAN PLATELET VOLUME 10.4 fL (7.4-10.4); MONO % 3.1 %; NEUT % 57.8 %; NEUT ABS # 1.84 K/uL (1.4-6.5); NUCLEATED RED BLOOD CELL ABS 0.06 K/uL (0-0); PLATELET COUNT 159 K/uL (130-400); RED CELL DISTRIBUTION WIDTH SD 49.5 fL (36.4-46.3); WHITE BLOOD COUNT 3.19 K/uL (4.8-10.8)
[2018-03-21 15:26] LABS: ALBUMIN 2.6 gm/dl (3.4-5.0); ALKALINE PHOSPHATASE 255 U/L (45-117); ALT/SGPT 88 U/L (12-78); AST/SGOT 107 U/L (15-37); BLOOD UREA NITROGEN 27 mg/dl (7-18); CALCIUM 8.8 mg/dl (8.5-10.1); CARBON DIOXIDE 24 mmol/L (21-32); CREATININE 1.21 mg/dl (0.60-1.20); GLUCOSE 144 mg/dl (70-99); POTASSIUM 3.6 mmol/L (3.5-5.1); SODIUM 131 mmol/L (136-145); TOTAL PROTEIN 6.5 gm/dl (6.4-8.2)
--- NOTE | 2018-03-30 07:42 | CODING QUERY NO DIAGNOSIS ---
TREATMENT RENDERED WITHOUT A DIAGNOSIS Saturnino JUSTIN, To promote full compliance with coding requirements relating to patient care, physician participation is requested in all cases of death surveys coder uncertainty. Please assist us with providing a diagnosis/symptom for the test(s) below: A diagnosis/symptom was not documented on your Order. A valid diagnosis/symptom is required to bill all insurances. Please remember that we are unable to code a diagnosis of rule out, probable, possible, questionable, or suspected. Tests that require a diagnosis: * URINALYSIS WITH MICROSCOPY DIAGNOSIS: DATE OF SERVICE: 03/21/18 Provider Signature: Date: Thank you Silvio Obrien [facility] Information Management Once completed, please kindly fax back to [phone] For questions please call [phone]
== END | disposition home or self-care (01) ==
LOC: C.LABSPEC 14:41
PROVIDERS: ATTEND Internal Medicine Hematology & Oncology
DX: C25.2 Malignant neoplasm of tail of pancreas (principal)

== ENCOUNTER → 2018-03-27 | Outpatient (CLI) | payer BC ==
[2018-03-27 14:28] LABS: BASO % 0.3 %; BASO ABS # 0.01 K/uL (0-0.2); EOS ABS # 0.03 K/uL (0-0.5); HEMATOCRIT 25.3 % (37-47); HEMOGLOBIN 8.5 g/dL (12.0-16.0); IG# 0.03 K/uL (0.00-0.02); LYMPH % 40.8 %; MEAN CORPUSCULAR HEMOGLOBIN 30.6 pg (25-34); MEAN CORPUSCULAR HGB CONC 33.6 g/dl (32-36); MEAN PLATELET VOLUME 11.4 fL (7.4-10.4); MONO ABS # 0.06 K/uL (0.11-0.59); NEUT % 54.9 %; NEUT ABS # 1.61 K/uL (1.4-6.5); PLATELET COUNT 238 K/uL (130-400); RED CELL DISTRIBUTION WIDTH CV 15.5 % (11.5-14.5); RED CELL DISTRIBUTION WIDTH SD 49.1 fL (36.4-46.3); WHITE BLOOD COUNT 2.94 K/uL (4.8-10.8)
[2018-03-27 14:56] LABS: ALBUMIN 2.7 gm/dl (3.4-5.0); ALKALINE PHOSPHATASE 269 U/L (45-117); ALT/SGPT 95 U/L (12-78); AST/SGOT 108 U/L (15-37); BLOOD UREA NITROGEN 27 mg/dl (7-18); CALCIUM 8.2 mg/dl (8.5-10.1); CARBON DIOXIDE 23 mmol/L (21-32); CREATININE 1.41 mg/dl (0.60-1.20); GLUCOSE 167 mg/dl (70-99); POTASSIUM 3.2 mmol/L (3.5-5.1); SODIUM 127 mmol/L (136-145); TOTAL PROTEIN 6.4 gm/dl (6.4-8.2)
== END | disposition home or self-care (01) ==
LOC: C.LABSPEC 14:18
PROVIDERS: ATTEND Nurse Practitioner Family
DX: E86.0 Dehydration (principal)

== ENCOUNTER → 2018-04-04 | Outpatient (CLI) | payer BC ==
[2018-04-04 15:19] LABS: BASO % 0.2 %; BASO ABS # 0.02 K/uL (0-0.2); EOS % 0.2 %; EOS ABS # 0.02 K/uL (0-0.5); HEMATOCRIT 28.2 % (37-47); HEMOGLOBIN 9.2 g/dL (12.0-16.0); LYMPH % 13.9 %; LYMPH ABS # 1.28 K/uL (1.2-3.4); MEAN CELL VOLUME 93.1 fL (80-100); MEAN CORPUSCULAR HEMOGLOBIN 30.4 pg (25-34); MEAN CORPUSCULAR HGB CONC 32.6 g/dl (32-36); MEAN PLATELET VOLUME 9.8 fL (7.4-10.4); MONO % 7.5 %; MONO ABS # 0.69 K/uL (0.11-0.59); NEUT ABS # 7.01 K/uL (1.4-6.5); PLATELET COUNT 446 K/uL (130-400); RED CELL DISTRIBUTION WIDTH CV 17.5 % (11.5-14.5); RED CELL DISTRIBUTION WIDTH SD 57.5 fL (36.4-46.3); WHITE BLOOD COUNT 9.22 K/uL (4.8-10.8)
[2018-04-04 15:44] LABS: ALBUMIN 2.7 gm/dl (3.4-5.0); ALKALINE PHOSPHATASE 229 U/L (45-117); ALT/SGPT 41 U/L (12-78); AST/SGOT 48 U/L (15-37); BLOOD UREA NITROGEN 23 mg/dl (7-18); CALCIUM 8.7 mg/dl (8.5-10.1); CARBON DIOXIDE 26 mmol/L (21-32); CREATININE 0.95 mg/dl (0.60-1.20); GLUCOSE 192 mg/dl (70-99); POTASSIUM 3.6 mmol/L (3.5-5.1); SODIUM 133 mmol/L (136-145); TOTAL PROTEIN 6.3 gm/dl (6.4-8.2)
== END ==
LOC: C.LABSPEC 15:12
PROVIDERS: ATTEND Internal Medicine Hematology & Oncology
DX: C25.2 Malignant neoplasm of tail of pancreas (principal)

== ENCOUNTER → 2018-04-11 | Outpatient (CLI) | payer BC ==
[2018-04-11 13:49] LABS: BASO % 0.3 %; BASO ABS # 0.02 K/uL (0-0.2); EOS % 1.2 %; EOS ABS # 0.07 K/uL (0-0.5); HEMATOCRIT 27.8 % (37-47); HEMOGLOBIN 9.1 g/dL (12.0-16.0); IG# 0.06 K/uL (0.00-0.02); LYMPH % 13.4 %; LYMPH ABS # 0.77 K/uL (1.2-3.4); MEAN CELL VOLUME 92.7 fL (80-100); MEAN CORPUSCULAR HEMOGLOBIN 30.3 pg (25-34); MEAN CORPUSCULAR HGB CONC 32.7 g/dl (32-36); MEAN PLATELET VOLUME 9.9 fL (7.4-10.4); MONO % 7.5 %; MONO ABS # 0.43 K/uL (0.11-0.59); NEUT % 76.6 %; NEUT ABS # 4.38 K/uL (1.4-6.5); PLATELET COUNT 293 K/uL (130-400); RED CELL DISTRIBUTION WIDTH CV 17.5 % (11.5-14.5); RED CELL DISTRIBUTION WIDTH SD 56.3 fL (36.4-46.3); WHITE BLOOD COUNT 5.73 K/uL (4.8-10.8)
[2018-04-11 14:27] LABS: ALBUMIN 2.6 gm/dl (3.4-5.0); ALKALINE PHOSPHATASE 210 U/L (45-117); ALT/SGPT 46 U/L (12-78); AST/SGOT 60 U/L (15-37); BLOOD UREA NITROGEN 28 mg/dl (7-18); CALCIUM 8.9 mg/dl (8.5-10.1); CARBON DIOXIDE 25 mmol/L (21-32); CREATININE 0.99 mg/dl (0.60-1.20); GLUCOSE 194 mg/dl (70-99); POTASSIUM 3.5 mmol/L (3.5-5.1); SODIUM 130 mmol/L (136-145); TOTAL PROTEIN 6.4 gm/dl (6.4-8.2)
== END | disposition home or self-care (01) ==
LOC: C.LABSPEC 13:25
PROVIDERS: ATTEND Internal Medicine Hematology & Oncology
DX: C25.2 Malignant neoplasm of tail of pancreas (principal)

== ENCOUNTER → 2018-04-20 | Outpatient (CLI) | payer BC ==
[~2018-04-20] MED LIST changes: +GRANISETRON; +OPTIRAY 320 IV PRN; +PRED10TA PO; +[UNRECOGNIZED DRUG - OTHER]
--- NOTE | 2018-04-20 16:41 | DIAGNOSTIC IMAGING REPORT ---
CT ABD/PELVIS IV AND ORAL CONT CLINICAL HISTORY: Metastatic pancreatic carcinoma. COMPARISON STUDY: February 25, 2018 TECHNIQUE: Following the IV administration of 93 mL of Optiray-320, CT scan of the abdomen and pelvis was performed from the lung bases to the proximal femurs. Images are reviewed in the axial, sagittal, and coronal planes. IV contrast was administered without complication. A dose lowering technique was utilized adhering to the principles of ALARA. CT DOSE: 552.84 mGy.cm FINDINGS: Lower chest: There are trace bilateral pleural effusions. Liver: There is pneumobilia. There are multiple space-occupying hepatic masses. An index left lobe hepatic mass measures 25 mm. This previously measured 27 mm. An index right lobe hepatic mass measures 19 mm. This producing measured 25 mm. Gallbladder: The gallbladder is minimally distended. There is an indwelling biliary enteric stent present. Spleen: The spleen is again noted to enhance in a heterogeneous fashion with central hypodensity. Pancreas: There is a 4.2 cm pancreatic tail mass minimally smaller than on the preceding study. There is suspected occlusion of the splenic vein with narrowing of the portal splenic confluence. Adrenal glands: Unremarkable. Kidneys: There is a 14 mm left renal cyst. Bowel: There are no transition zones indicate bowel obstruction. No acute inflammatory changes are visualized. Peritoneum: There is no intraperitoneal free air or abdominal ascites. Vasculature: The abdominal aorta is normal in course and caliber. Adenopathy: There is persistent ill-defined soft tissue in the region the hunter hepatis and proximal celiac and SMA regions. Pelvic viscera: The bladder, and pelvic viscera are unremarkable. Skeletal structures: There is an old left ischio pubic ring fracture. Postsurgical changes are present within the spine. There are advanced multilevel degenerative changes. There is a superior endplate L1 compression fracture. There is endplate irregularity the T11-12 level. IMPRESSION: 1. Persistent pancreatic tail mass, minimally smaller than on the preceding study 2. Multiple hepatic masses, slightly smaller than on the preceding study 3. Continued evidence for malignancy at the level of the hunter hepatis. Patent biliary enteric stent. Persistent splenic vein occlusion. 4. No evidence of bowel obstruction. No evidence of free air. Electronically signed by: Cristiano Bashir M.D. 04/20/2018 4:40 PM Dictated Date/Time: 04/20/2018 4:30 PM
--- NOTE | 2018-04-20 16:54 | DIAGNOSTIC IMAGING REPORT ---
CT OF THE CHEST WITH IV CONTRAST CLINICAL HISTORY: Metastatic pancreatic carcinoma COMPARISON STUDY: Chest x-ray dated 02/24/2018 TECHNIQUE: Following the IV administration of 93 mL of Optiray-320, CT of the thorax was performed from the thoracic inlet to the lung bases. Images are reviewed in the axial, sagittal, and coronal planes. IV contrast was administered without complication. A dose lowering technique was utilized adhering to the principles of ALARA. CT DOSE: FINDINGS: Thyroid: Imaged portions of the thyroid gland are normal in appearance. Thoracic aorta: The thoracic aorta is normal in course and caliber, noting standard 3-vessel arch anatomy. No aneurysm or dissection is seen. Pulmonary vasculature: There are small bilateral pulmonary artery filling defects consistent with pulmonary embolism. HEART: The heart is normal in size and configuration, without pericardial effusion. Lungs and pleural spaces: There are trace pleural effusions. There are bilateral groundglass pulmonary opacities. There is a 5 mm right lower lobe pulmonary nodule. There is a 3 mm left upper lobe pulmonary nodule. There is a 6 mm left lower lobe opacity, possibly atelectatic Mediastinum: There are borderline enlarged mediastinal lymph nodes. Alice: There is no evidence of pathologic hilar adenopathy. Axilla: Clear. Upper abdomen: There is an indwelling biliary enteric stent. There are multiple hepatic masses consistent with metastasis. There is soft tissue infiltration of the hunter hepatis celiac and SMA region consistent with neoplasm. There is a pancreatic tail mass consistent with neoplasm. There is decreased attenuation of the spleen possibly secondary to splenic vein occlusion. Skeletal structures: There are no lytic or blastic osseous lesions. IMPRESSION: 1. Bilateral pulmonary artery filling defects indicative of pulmonary embolism. 2. Bilateral groundglass pulmonary opacities. Likely diagnostic considerations include pneumonia versus drug reaction. 3. Indeterminate subcentimeter pulmonary nodules 4. Borderline enlarged mediastinal lymph nodes 5. Hepatic metastasis. Pancreatic tail mass. Electronically signed by: Cristiano Bashir M.D. 04/20/2018 4:53 PM Dictated Date/Time: 04/20/2018 4:45 PM
== END | disposition home or self-care (01) ==
LOC: C.CTS 15:39
PROVIDERS: ATTEND Internal Medicine Hematology & Oncology
DX: C25.2 Malignant neoplasm of tail of pancreas (principal)

== ENCOUNTER → 2018-04-24 | Outpatient (CLI) | payer BC ==
[~2018-04-24] MED LIST changes: +CIPR1TAB11 PO; -OPTIRAY 320 IV PRN
[2018-04-24 12:29] LABS: BASO % 0.2 %; BASO ABS # 0.03 K/uL (0-0.2); EOS % 0.4 %; EOS ABS # 0.06 K/uL (0-0.5); HEMOGLOBIN 8.8 g/dL (12.0-16.0); IG# 0.19 K/uL (0.00-0.02); LYMPH % 19.6 %; LYMPH ABS # 2.68 K/uL (1.2-3.4); MEAN CELL VOLUME 94.3 fL (80-100); MEAN CORPUSCULAR HEMOGLOBIN 29.6 pg (25-34); MEAN CORPUSCULAR HGB CONC 31.4 g/dl (32-36); MEAN PLATELET VOLUME 11.1 fL (7.4-10.4); MONO % 8.5 %; MONO ABS # 1.16 K/uL (0.11-0.59); NEUT % 69.9 %; NEUT ABS # 9.53 K/uL (1.4-6.5); PLATELET COUNT 302 K/uL (130-400); RED CELL DISTRIBUTION WIDTH SD 63.8 fL (36.4-46.3); WHITE BLOOD COUNT 13.65 K/uL (4.8-10.8)
== END | disposition home or self-care (01) ==
LOC: C.LABSPEC 12:20
PROVIDERS: ATTEND Internal Medicine Hematology & Oncology
DX: C25.2 Malignant neoplasm of tail of pancreas (principal)

== ENCOUNTER 2018-08-28 22:49 | Inpatient (IN) ==
[~2018-08-28 22:49] MED LIST changes: -CIPR1TAB11 PO; -CLC100 PO; -DICL1GEL12 TOP; -FLUT0.15 NAE; -GRANISETRON; -HYDR-3124 PO; -INDA1TAB3 PO; -MCRK20 PO; -METR0.7527 TOP; +MIDAZOLAM HCL 5 MG/ML VIAL IV ONE; -MRN25 PO; -MTR600X PO; -ONDA4TAB46 PO; -OXYC20TA50 PO; -PRED10TA PO; -PROC10TA PO; -RALO60TA30 PO; +RAPID SEQUENCE INDUCTION BAG ONE; +ROCURONIUM BROMIDE 10 MG/ML 5 ML VIAL IV ONE; -TRAM-10 PO; -[UNRECOGNIZED DRUG - OTHER]
[2018-08-28] MEDS ORDERED: ONDANSETRON INJ 2 MG/ML 2 ML VIAL ONE (22:58)
[2018-08-28] MEDS ORDERED: SODIUM CHLORIDE 0.9% 1000ML 2,000 ML IV ONE (23:06)
[2018-08-28 23:17] LABS: Base Excess VBG -7.7 mEq/L; pH VBG 7.18 (7.36-7.41)
[2018-08-28 23:20] LABS: Hematocrit (blood only) 34.6 % (37-47); Hemoglobin 11.1 g/dL (12.0-16.0); Mean Corpuscular Hgb Conc 32.1 g/dL (32-36); Mean Platelet Volume 10.8 fL (7.4-10.4); Nucleated RBC # (auto) 0.06 K/uL (0-0); Nucleated RBC % (auto) 0.3 %; Platelet Count 617 K/uL (130-400); RDW Standard Deviation 68.2 fL (36.4-46.3); Red Blood Count 3.36 M/uL (4.2-5.4); White Blood Count 18.16 K/uL (4.8-10.8)
[2018-08-28 23:22] LABS: iSTAT Hemoglobin 12.2 g/dl (12.0-16.0); iSTAT Ionized Calcium 1.06 mmol/l (1.12-1.32)
[2018-08-28] MEDS ORDERED: OPTIRAY 320 125ml IV PRN (23:26)
[2018-08-28 23:29] LABS: INR 1.2 (0.9-1.1); Partial Thromboplastin Ratio 1.1; Partial Thromboplastin Time 28.5 Seconds (21.0-31.0); Prothrombin Time 11.8 Seconds (9.0-12.0)
[2018-08-28 23:36] LABS: Alanine Aminotransferase 31 U/L (12-78); Albumin Level 3.1 gm/dl (3.4-5.0); Aspartate Aminotransferase 68 U/L (15-37); BUN Creatinine Ratio 13.9 (10-20); Bilirubin Direct 0.2 mg/dl (0-0.2); Blood Urea Nitrogen 25 mg/dl (7-18); Calcium 8.1 mg/dl (8.5-10.1); Carbon Dioxide 21 mmol/L (21-32); Chloride 100 mmol/L (98-107); Est GFR (African American) 30.5; Est GFR (Non-African American) 26.3; Glucose 177 mg/dl (70-99); Magnesium 1.9 mg/dl (1.8-2.4); Potassium 3.6 mmol/L (3.5-5.1); Sodium 135 mmol/L (136-145)
[2018-08-28 23:39] LABS: Alkaline Phosphatase 85 U/L (45-117); Bilirubin,Total 0.4 mg/dl (0.2-1); Creatine Kinase 144 U/L (26-192); Total Protein 7.1 gm/dl (6.4-8.2); Troponin I 0.016 ng/ml (0-0.045)
[2018-08-28] MEDS ORDERED: PROPOFOL IV EMULSION 10 MG/ML 100 ML VIAL IV ONE (23:47)
[2018-08-28] MEDS ORDERED: PIPERACILLIN/TAZOBACTAM 4.5 GM/120 ML BAG IV ONE (23:54)
[2018-08-29 00:19] LABS: Appearance Urine Clear (Clear); Bilirubin Urine Negative (Negative); Color Urine Yellow; Glucose Urine UA Negative (Negative); Ketones Urine Negative (Negative); Leukocyte Esterase Urine Negative (Negative); Nitrite Urine Negative (Negative); Protein Urine Negative (Negative); Specific Gravity Urine 1.023 (1.000-1.030); Urobilinogen Urine Negative (Negative)
[2018-08-29 00:21] LABS: Basophils # (auto) 0.02 K/uL (0-0.2); Basophils % (auto) 0.1 %; Eosinophils # (auto) 0.04 K/uL (0-0.5); Eosinophils % (auto) 0.2 %; Immature Granulocytes # (auto) 0.07 K/uL (0.00-0.02); Immature Granulocytes % (auto) 0.4 %; Lymphocytes # (auto) 8.49 K/uL (1.2-3.4); Lymphocytes % (auto) 46.8 %; Monocytes # (auto) 2.26 K/uL (0.11-0.59); Monocytes % (auto) 12.4 %; Neutrophils # (auto) 7.28 K/uL (1.4-6.5); Neutrophils % (auto) 40.1 %
[2018-08-29] MEDS ORDERED: ACETAMINOPHEN 650 MG SUPP PR STA (00:45)
[2018-08-29 00:59] LABS: Influenza A virus by PCR Neg for Influ A (Neg); Influenza B virus by PCR Neg for Influ B (Neg)
--- NOTE | 2018-08-29 01:18 | History & Physical Report ---
Date of Service August 29, 2018 Assessment & Plan (1) Sepsis: 82 y/o F Hx HTN, OA, diastolic CHF, BL PEs, metastatic pancreatic CA diagnosed 12/2017 - currently on chemotherapy. She arrives at the hospital febrile and unresponsive, and required intubation as she was not adequately ventilating. It was reported that she was unresponsive when EMS arrived at her house. She apparently had two seizures in the ambulance on route. The prior evening, her reports that she had stated that she was very cold and required four blankets to keep warm. In the AM she appeared to be in her normal state of health and proceeded to the hematology office for scheduled chemo. Following this, she went shopping and then returned home. She stated that she was tired and went for a nap at approximately 5pm. Her went to wake her up at 10pm as he became concerned. She did not respond which is when EMS was alerted. The pt is intubated and sedated at the time of admission. All of the preceding information is obtained from her at bedside and the EMS report. Initial labs are notable for leukocytosis, thrombocytosis, lactic acidosis, hyperglycemia, mild ANITA. A CCT head was negative for acute findings. A CT chest is suspicious for aspiration. 1) Fever - presumed infection - possible sources may include aspiration pneumonia and a R chest port. Blood cultures are pending. She is treated with Zosyn and Vanc in the interim. She is receiving appropriate IVF and a repeat lactic is pending. She takes daily prednisone so we will initiate stress dosing. 2) Seizure - witnessed on route. Her does state, however, that she has occasionally had violent rigors which we suppose might be mistaken for seizure activity. She is sedated and intubated and will be monitored in the ICU. As she does have advanced pancreatic CA, we will obtain an MRI with gadolinium to assess for brain mets as a cause. 3) CHF - grade 1 diastolic dysfunction reported on echo. She is not treated for this presently - monitor volume statis - consider diuresis if needed. 4) Pancreatic CA - metastatic - she was reported as having a marginal response to Gemcitabine and Abraxane. We will consult hematology as her current regimen and, therefore, possible side effects are unclear per the current chart. 5) BL PEs - remains on BID Lovenox Full code - confirmed with Total time for this admit including review of labs, meds, imaging, records - discussion with pt's and ER attending - [facility] critical care time 45 min History of Present Illness Chief Complaint: 82 y/o F Hx HTN, OA, diastolic CHF, BL PEs, metastatic pancreatic CA diagnosed 12/2017 - currently on chemotherapy. She arrives at the hospital febrile and unresponsive, and required intubation as she was not adequately ventilating. It was reported that she was unresponsive when EMS arrived at her house. She apparently had two seizures in the ambulance on route. The prior evening, her reports that she had stated that she was very cold and required four blankets to keep warm. In the AM she appeared to be in her normal state of health and proceeded to the hematology office for scheduled chemo. Following this, she went shopping and then returned home. She stated that she was tired and went for a nap at approximately 5pm. Her went to wake her up at 10pm as he became concerned. She did not respond which is when EMS was alerted. The pt is intubated and sedated at the time of admission. All of the preceding information is obtained from her at bedside and the EMS report. Initial labs are notable for leukocytosis, thrombocytosis, lactic acidosis, hyperglycemia, mild ANITA. A CCT head was negative for acute findings. A CT chest is suspicious for aspiration. PMH: 1) Pancreatic CA - metastatic - she was reported as having a marginal response to Gemcitabine and Abraxane. 2) CHF - grade 1 diastolic dysfunction 3) HTN - not currently treated 4) BL PEs - 04/2018 - Lovenox 5) GERD 6) Osteoarthritis Social: Does not drink or smoke - lives with hsban - maintains independence - daughter is a flight communications operator - participates in care Family: Could not obtain Primary Care Provider: Jed Marks MD Allergies Allergy/AdvReac Type Severity Reaction Status Date / Time No Known Allergies Allergy Unknown Verified 08/28/18 23:03 Home Medications Home Medications Medication Instructions Recorded Confirmed Type diclofenac sodium [Voltaren] 1 applic TOPICAL PRN UD PRN #0 01/07/18 08/28/18 History fluticasone [Flonase Allergy 2 spry MICHAEL QAM #0 01/07/18 08/28/18 History Relief] indapamide 1.25 mg PO QAM #0 tab 01/07/18 08/28/18 History metronidazole [Metrogel Vaginal] 1 applic TOPICAL PRN UD #0 01/07/18 08/28/18 History tramadol 50 - 100 mg PO Q4 PRN #0 tab 01/07/18 08/28/18 History oxycodone [OxyContin] 20 mg PO BID 30 Days #60 tab 02/14/18 08/28/18 History prochlorperazine maleate 10 mg PO Q6 PRN #0 02/14/18 08/28/18 History [Compazine] granisetron HCl 1 tab PO Q12 #0 04/24/18 08/28/18 History prednisone 10 mg PO DAILY #0 tab 04/24/18 08/28/18 History docusate sodium 100 mg PO BID 04/28/18 08/28/18 History ibuprofen 600 mg PO Q6H PRN 04/28/18 08/28/18 History enoxaparin [Lovenox] 70 mg SUBCUT Q12H #30 ml 04/29/18 08/28/18 Rx fluticasone 2 spry MICHAEL QAM #1 g 04/29/18 08/28/18 Rx magnesium oxide 400 mg PO BID #7 tab 04/29/18 08/28/18 Rx Past Med/Surg History Medical History HTN (hypertension) (Acute) Osteoporosis (Acute) Osteopenia (Acute) Pancreatic cancer Bilateral pulmonary embolism (Acute) CHF (congestive heart failure) (Acute) Hypoxia (Acute) SOB (shortness of breath) Social History marital status: Current Living Situation: Spouse Smoking Status: Unknown if ever smoked Review of Systems Cannot obtain Physical Exam 2 Vital Signs (Past 24 Hours): Last Vital Signs Temp 39.6 C H 08/28/18 22:51 Pulse 108 H 08/29/18 00:31 Resp 16 08/29/18 00:31 BP 125/55 L 08/29/18 00:31 Pulse Ox 99 08/29/18 00:31 Physical Exam: General: Sedated, intubated ENT: Could not examine oral cavity Eyes: ERIKA - it was reported that her pupils were unequal initially - was not the case at time of admission Head and neck: Normocephalic, atruamatic, No JVD Chest/heart: S1,2, RRR, no murmurs, no gallops Lungs: CTAB, no wheezing or crackles - lungs appear entirely clear on auscultation Abdomen: Nontender, nondistended, BS+ Neuro: Exam deferred as pt is sedated with propofol Musculoskeletal: No joint inflammation Skin: No acute rashes or ulcers Extremities: No clubbing, cyanosis, edema _ (1) Sepsis Sepsis type: sepsis due to unspecified organism Qualified Code(s): A41.9 - Sepsis, unspecified organism
[2018-08-29] MEDS ORDERED: VANCOMYCIN CONSULT ACTIVE PRN ×2 (02:16→19:49)
[2018-08-29] MEDS ORDERED: ICU PROTOCOL FOR HYPERGLYCEMIA PRN (02:16)
[2018-08-29] MEDS ORDERED: PATIENT'S HEIGHT AND/OR WEIGHT NEEDED ONE (02:45)
--- NOTE | 2018-08-29 02:51 | Emergency Department Note ---
Entered by Latonia Bell acting as a scribe for History of Present Illness General Chief complaint: Unresponsive Time Seen by Provider: 08/28/18 23:05 Source: family and EMS Mode of arrival: EMS Limitations: altered mental status History of Present Illness Onset (ago): day(s) Pain Consistency: + other (episode) Quality: + other (Unresponsiveness) Associated symptoms: + other (The patient presents today unresponsive. ) The patient is an 83 year old female who presents to the ED with complaints of an episode of unresponsiveness with an onset of today. Per EMS, the patient has a history of stage 4 pancreatic cancer. Per , she received chemotherapy treatment today at 1100. He notes that her potassium was low at the time of treatment. He notes that he took a nap around 1600 today and then when he went to go check up on the patient she was unresponsive. Per EMS, the patient had three seizures in route to the emergency department today. Per EMS, the patient was febrile upon arrival. Home Medications Home Medications Medication Instructions Recorded Confirmed Type diclofenac sodium [Voltaren] 1 applic TOPICAL PRN UD PRN #0 01/07/18 08/28/18 History fluticasone [Flonase Allergy 2 spry MICHAEL QAM #0 01/07/18 08/28/18 History Relief] indapamide 1.25 mg PO QAM #0 tab 01/07/18 08/28/18 History metronidazole [Metrogel Vaginal] 1 applic TOPICAL PRN UD #0 01/07/18 08/28/18 History tramadol 50 - 100 mg PO Q4 PRN #0 tab 01/07/18 08/28/18 History oxycodone [OxyContin] 20 mg PO BID 30 Days #60 tab 02/14/18 08/28/18 History prochlorperazine maleate 10 mg PO Q6 PRN #0 02/14/18 08/28/18 History [Compazine] granisetron HCl 1 tab PO Q12 #0 04/24/18 08/28/18 History prednisone 10 mg PO DAILY #0 tab 04/24/18 08/28/18 History docusate sodium 100 mg PO BID 04/28/18 08/28/18 History ibuprofen 600 mg PO Q6H PRN 04/28/18 08/28/18 History enoxaparin [Lovenox] 70 mg SUBCUT Q12H #30 ml 04/29/18 08/28/18 Rx fluticasone 2 spry MICHAEL QAM #1 g 04/29/18 08/28/18 Rx magnesium oxide 400 mg PO BID #7 tab 04/29/18 08/28/18 Rx Allergies Allergy/AdvReac Type Severity Reaction Status Date / Time No Known Allergies Allergy Unknown Verified 08/28/18 23:03 Past Med/Surg History Medical History HTN (hypertension) (Acute) Osteoporosis (Acute) Osteopenia (Acute) Pancreatic cancer Bilateral pulmonary embolism (Acute) CHF (congestive heart failure) (Acute) Hypoxia (Acute) SOB (shortness of breath) Social History marital status: Current Living Situation: Spouse Smoking Status: Unknown if ever smoked Communication Ability: intubated Review of Systems Unobtainable due to cognitive status Physical Exam Vital Signs Vital Signs - 24 hr 08/28/18 22:51 08/28/18 22:52 08/28/18 23:00 Temperature 39.6 C H Temperature Source Rectal Sepsis Recent Fever Within 48 Hours Yes Sepsis New/Unexplained Change in Mental Status Yes Sepsis Action Taken by Nursing No Action Required Pulse Rate 149 H 146 H Pulse Rate [Apical] 153 H Respiratory Rate 16 42 H Respiratory Effort / Characteristics Mechanically Ventilated Blood Pressure 187/119 H 187/119 H Blood Pressure [Right Arm] 195/81 H Blood Pressure Mean 141 141 Blood Pressure Mean [Right Arm] 119 Pulse Oximetry 98 Oxygen Delivery Method Oxygen Flow Rate Fraction of Inspired Oxygen SaO2/FiO2 Ratio 08/28/18 23:01 08/28/18 23:02 08/28/18 23:26 Temperature Temperature Source Sepsis Recent Fever Within 48 Hours Sepsis New/Unexplained Change in Mental Status Sepsis Action Taken by Nursing Pulse Rate 150 H 158 H Pulse Rate [Apical] 114 H Respiratory Rate 36 H 15 12 Respiratory Effort / Characteristics Mechanically Ventilated Blood Pressure 195/81 H Blood Pressure [Right Arm] 118/56 L Blood Pressure Mean 119 Blood Pressure Mean [Right Arm] 76 Pulse Oximetry 98 96 99 Oxygen Delivery Method Mechanical Vent Oxygen Flow Rate Fraction of Inspired Oxygen 100 SaO2/FiO2 Ratio 99 08/28/18 23:27 08/28/18 23:30 08/28/18 23:31 Temperature Temperature Source Sepsis Recent Fever Within 48 Hours Sepsis New/Unexplained Change in Mental Status Sepsis Action Taken by Nursing Pulse Rate 114 H 115 H 114 H Pulse Rate [Apical] Respiratory Rate 18 Respiratory Effort / Characteristics Blood Pressure 118/56 L 122/55 L Blood Pressure [Right Arm] Blood Pressure Mean 76 77 Blood Pressure Mean [Right Arm] Pulse Oximetry 99 99 99 Oxygen Delivery Method Oxygen Flow Rate Fraction of Inspired Oxygen 100 SaO2/FiO2 Ratio 08/28/18 23:40 08/28/18 23:41 08/28/18 23:50 Temperature Temperature Source Sepsis Recent Fever Within 48 Hours Sepsis New/Unexplained Change in Mental Status Sepsis Action Taken by Nursing Pulse Rate 115 H 115 H 115 H Pulse Rate [Apical] Respiratory Rate Respiratory Effort / Characteristics Blood Pressure 127/55 L Blood Pressure [Right Arm] Blood Pressure Mean 79 Blood Pressure Mean [Right Arm] Pulse Oximetry 99 99 99 Oxygen Delivery Method Oxygen Flow Rate Fraction of Inspired Oxygen SaO2/FiO2 Ratio 08/28/18 23:51 08/29/18 00:00 08/29/18 00:01 Temperature Temperature Source Sepsis Recent Fever Within 48 Hours Sepsis New/Unexplained Change in Mental Status Sepsis Action Taken by Nursing Pulse Rate 115 H 110 H 110 H Pulse Rate [Apical] Respiratory Rate Respiratory Effort / Characteristics Blood Pressure 127/54 L 117/51 L Blood Pressure [Right Arm] Blood Pressure Mean 78 73 Blood Pressure Mean [Right Arm] Pulse Oximetry 99 99 99 Oxygen Delivery Method Oxygen Flow Rate Fraction of Inspired Oxygen SaO2/FiO2 Ratio 08/29/18 00:10 08/29/18 00:11 08/29/18 00:20 Temperature Temperature Source Sepsis Recent Fever Within 48 Hours Sepsis New/Unexplained Change in Mental Status Sepsis Action Taken by Nursing Pulse Rate 109 H 108 H 108 H Pulse Rate [Apical] Respiratory Rate Respiratory Effort / Characteristics Blood Pressure 118/55 L Blood Pressure [Right Arm] Blood Pressure Mean 76 Blood Pressure Mean [Right Arm] Pulse Oximetry 99 99 99 Oxygen Delivery Method Oxygen Flow Rate Fraction of Inspired Oxygen SaO2/FiO2 Ratio 08/29/18 00:21 08/29/18 00:30 08/29/18 00:31 Temperature Temperature Source Sepsis Recent Fever Within 48 Hours Sepsis New/Unexplained Change in Mental Status Sepsis Action Taken by Nursing Pulse Rate 108 H 107 H 108 H Pulse Rate [Apical] 108 H Respiratory Rate 16 Respiratory Effort / Characteristics Blood Pressure 120/55 L 125/55 L Blood Pressure [Right Arm] 125/55 L Blood Pressure Mean 76 78 Blood Pressure Mean [Right Arm] 78 Pulse Oximetry 99 99 99 Oxygen Delivery Method Mechanical Vent Oxygen Flow Rate Fraction of Inspired Oxygen SaO2/FiO2 Ratio 08/29/18 00:40 08/29/18 00:41 08/29/18 00:50 Temperature Temperature Source Sepsis Recent Fever Within 48 Hours Sepsis New/Unexplained Change in Mental Status Sepsis Action Taken by Nursing Pulse Rate 108 H 108 H 106 H Pulse Rate [Apical] Respiratory Rate Respiratory Effort / Characteristics Blood Pressure 126/58 L Blood Pressure [Right Arm] Blood Pressure Mean 80 Blood Pressure Mean [Right Arm] Pulse Oximetry 99 99 100 Oxygen Delivery Method Oxygen Flow Rate Fraction of Inspired Oxygen SaO2/FiO2 Ratio 08/29/18 00:51 08/29/18 01:00 08/29/18 01:01 Temperature Temperature Source Sepsis Recent Fever Within 48 Hours Sepsis New/Unexplained Change in Mental Status Sepsis Action Taken by Nursing Pulse Rate 106 H 108 H 106 H Pulse Rate [Apical] Respiratory Rate 24 Respiratory Effort / Characteristics Blood Pressure 124/57 L 119/56 L Blood Pressure [Right Arm] Blood Pressure Mean 79 77 Blood Pressure Mean [Right Arm] Pulse Oximetry 100 100 100 Oxygen Delivery Method Oxygen Flow Rate Fraction of Inspired Oxygen SaO2/FiO2 Ratio 08/29/18 01:10 08/29/18 01:11 08/29/18 01:20 Temperature Temperature Source Sepsis Recent Fever Within 48 Hours Sepsis New/Unexplained Change in Mental Status Sepsis Action Taken by Nursing Pulse Rate 107 H 107 H 108 H Pulse Rate [Apical] Respiratory Rate 12 13 Respiratory Effort / Characteristics Blood Pressure 129/55 L 136/54 L Blood Pressure [Right Arm] Blood Pressure Mean 79 81 Blood Pressure Mean [Right Arm] Pulse Oximetry 100 100 100 Oxygen Delivery Method Oxygen Flow Rate Fraction of Inspired Oxygen SaO2/FiO2 Ratio 08/29/18 01:45 08/29/18 02:29 08/29/18 02:36 Temperature 37.4 C Temperature Source Oral Sepsis Recent Fever Within 48 Hours Sepsis New/Unexplained Change in Mental Status Sepsis Action Taken by Nursing Pulse Rate 108 H 87 Pulse Rate [Apical] 90 Respiratory Rate 15 17 17 Respiratory Effort / Characteristics Blood Pressure Blood Pressure [Right Arm] 113/59 L Blood Pressure Mean Blood Pressure Mean [Right Arm] 77 Pulse Oximetry 99 100 100 Oxygen Delivery Method Mechanical Vent Mechanical Vent Oxygen Flow Rate 100 Fraction of Inspired Oxygen 100 SaO2/FiO2 Ratio GENERAL: The patient is distressed and foaming at the mouth. HENT: Head: Normocephalic and atraumatic. EYES: Left pupil is 4 and unresponsive. Right eye is 2 and responsive. CV: Tachycardic., regular rhythm, normal heart sounds and intact distal pulses. There is no peripheral edema. Palpable radial pulses bue. PULM/CHEST: She has rhonchi bilaterally. Chest Wall: Port in place. ABD: The abdomen is soft. NEURO: GCS eye subscore is 2. GCS verbal subscore is 3. GCS motor subscore is 2. cerbellar tests wnl. Procedures Intubation Time out performed: Yes sedative: Versed Mg Given: 7 paralytic: Rocuronium Mg Given: 100 Laryngoscope: Ian (3) ET Tube Size: 7 ET Tube Uncuffed: Yes Tube Secured Depth (cm): 23 Tube Secured Location: teeth Tube Placement Confirmation: visualized tube passing through cords, equal breath sounds bilaterally, no breath sounds over epigastrium and confirmation by capnometry Patient Tolerated Procedure: well Intubation Complications: none Course 2250: Past medical records reviewed. The patient was evaluated in room A1, and a complete history and physical examination were performed.The patient was immediately seen and bagged with Ambu bag upon arrival. The patients said that she does not have a defined code status and wants everything done for her. 2301: The patient was intubated. See procedure note. 2314: The patients lactate was 7. IV fluids were started wide open. Her creatinine was 1.6 She has a history of bilateral pulmonary embolism. Give her history, we will proceed with CTA to rule out PE. 2358: Vital signs improved. Blood pressures normalized and her heart rate is improved into the low 1 teens. Patient is on the ventilator currently. CTs show no acute ICH, CTA of the chest shows no PE but does show possible right- sided aspiration. The patient's states that the patient does tend to vomit a lot after receiving chemotherapy. I spoke with the patient's daughter who is a physician on the 's cell phone and updated her on the patient's condition. She thanked me for calling and agreed with the decision to intubate the patient at this time. 0003: Labs show a leukocytosis of 18.6. I reviewed the patient's case with Dr. Mcqueen- Computer Network And Systems Engineer. He states that it is very unlikely that meningitis or encephalitis would cause the patient to be obtunded due to the acute onset of symptoms. I agree and will hold off on performing a lumbar puncture at this point. Lumbar puncture was also held off due to the possibility of the patient having a metastatic lesion from her stage IV pancreatic cancer into her brain does not been able to be seen on CT of the head without contrast. Dr. Mcqueen agrees and will evaluate the patient for further management. I spoke with Dr. Yg steel and the hospitalist and he agreed to admit the patient. Administered Medications Piperacillin Sod/Tazobactam Sod (Zosyn) 4.5 gm in 120 mls @ 30 mls/hr IV NOW ONE Stop: 08/29/18 03:53 Last Admin: 08/29/18 00:22 Dose: 30 mls/hr Ioversol (Optiray 320 125ml) 119 ml IV ONCE PRN PRN Reason: Interaction Checking Stop: 09/01/18 23:25 Last Admin: 08/28/18 23:26 Dose: 119 ml Discontinued Medications Acetaminophen (Tylenol) 650 mg UT NOW STA Stop: 08/29/18 00:46 Last Admin: 08/29/18 00:54 Dose: 650 mg Sodium Chloride (Nss 1000ml) 2,000 mls @ 999 mls/hr IV .Q2H1M ONE Stop: 08/29/18 01:06 Last Admin: 08/29/18 00:23 Dose: 999 mls/hr Miscellaneous () Confirm Administered Dose 1 ea .ROUTE .STK-MED ONE Stop: 08/28/18 22:50 Last Admin: 08/28/18 23:00 Dose: 1 ea Ondansetron HCl (Zofran) Confirm Administered Dose 4 mg .ROUTE .STK-MED ONE Stop: 08/28/18 22:59 Last Admin: 08/28/18 22:58 Dose: 4 mg Propofol (Diprivan) Confirm Administered Dose 1,000 mg IV .STK-MED ONE Stop: 08/28/18 23:48 Last Admin: 08/29/18 00:24 Dose: 1,000 mg Medical Decision Making Medical Records Attestation: I reviewed the patient's medical records. Home Medications Current Medication List: was personally reviewed by me Laboratory Data Attestation: I reviewed the patient's lab results. Result diagrams: 08/28/18 22:55 08/28/18 22:55 Lab Results 08/28/18 08/28/18 08/28/18 Range/Units 22:55 22:55 22:55 WBC 18.16 H (4.8-10.8) K/uL RBC 3.36 L (4.2-5.4) M/uL Hgb 11.1 L (12.0-16.0) g/dL POC Hgb (12.0-16.0) g/dl Hct 34.6 L (37-47) % POC Hct (37-47) % MCV 103.0 H (80-100) fL MCH 33.0 (25-34) pg MCHC 32.1 (32-36) g/dL RDW Std Deviation 68.2 H (36.4-46.3) fL RDW Coeff of Rosario 19.0 H (11.5-14.5) % Plt Count 617 H (130-400) K/uL MPV 10.8 H (7.4-10.4) fL Immature Gran % (Auto) 0.4 % Neut % (Auto) 40.1 % Lymph % (Auto) 46.8 % Tate % (Auto) 12.4 % Eos % (Auto) 0.2 % Baso % (Auto) 0.1 % Immature Gran # (Auto) 0.07 H (0.00-0.02) K/uL Neut # (Auto) 7.28 H (1.4-6.5) K/uL Lymph # (Auto) 8.49 H (1.2-3.4) K/uL Tate # (Auto) 2.26 H (0.11-0.59) K/uL Eos # (Auto) 0.04 (0-0.5) K/uL Baso # (Auto) 0.02 (0-0.2) K/uL Absolute Nucleated RBC 0.06 H (0-0) K/uL Nucleated RBC % (auto) 0.3 % PT 11.8 (9.0-12.0) Seconds INR 1.2 H (0.9-1.1) APTT 28.5 (21.0-31.0) Seconds PTT Ratio 1.1 VBG pH (7.36-7.41) VBG pCO2 (38-50) mmHg VBG pO2 mmHg VBG HCO3 mmol/L VBG O2 Saturation % VBG Base Excess mEq/L Barometric Pressure mm/Hg POC Sodium (135-144) mEq/L Sodium 135 L (136-145) mmol/L POC Potassium (3.3-5.0) mEq/L Potassium 3.6 (3.5-5.1) mmol/L POC Chloride (101-112) mEq/L Chloride 100 (98-107) mmol/L Carbon Dioxide 21 (21-32) mmol/L POC Total CO2 (24-31) mEq/l Anion Gap 15.0 H (3-11) POC Anion Gap (16-25) mmol/L POC BUN (7-18) mg/dl BUN 25 H (7-18) mg/dl Creatinine 1.79 H (0.6-1.2) mg/dl POC Creatinine (0.6-1.3) mg/dl Est Cr Clr Drug Dosing Not Reportable Est GFR ( Amer) 30.5 Est GFR (Non-Af Amer) 26.3 BUN/Creatinine Ratio 13.9 (10-20) Glucose 177 H (70-99) mg/dl POC Glucose (other) (70-99) mg/dl POC Lactic Acid Sg (0.90-1.70) mmol/L Calcium 8.1 L (8.5-10.1) mg/dl POC Ioniz Calcium Boy (1.12-1.32) mmol/l Magnesium 1.9 (1.8-2.4) mg/dl Total Bilirubin 0.4 (0.2-1) mg/dl Direct Bilirubin 0.2 (0-0.2) mg/dl AST 68 H (15-37) U/L ALT 31 (12-78) U/L Alkaline Phosphatase 85 (45-117) U/L Ammonia (11-32) umol/L Total Creatine Kinase 144 (26-192) U/L Troponin I 0.016 (0-0.045) ng/ml Total Protein 7.1 (6.4-8.2) gm/dl Albumin 3.1 L (3.4-5.0) gm/dl Lipase 101 (73-393) U/L Urine Color Urine Appearance (Clear) Urine pH (4.5-7.5) Ur Specific [place] (1.000-1.030) Urine Protein (Negative) Urine Glucose (UA) (Negative) Urine Ketones (Negative) Urine Blood (Negative) Urine Nitrite (Negative) Urine Bilirubin (Negative) Urine Urobilinogen (Negative) Ur Leukocyte Esterase (Negative) Influenza Type A (PCR) (Neg) Influenza Type B (PCR) (Neg) Blood Type Antibody Screen 08/28/18 08/28/18 08/28/18 Range/Units 22:55 23:07 23:08 WBC (4.8-10.8) K/uL RBC (4.2-5.4) M/uL Hgb (12.0-16.0) g/dL POC Hgb 12.2 (12.0-16.0) g/dl Hct (37-47) % POC Hct 36 L (37-47) % MCV (80-100) fL MCH (25-34) pg MCHC (32-36) g/dL RDW Std Deviation (36.4-46.3) fL RDW Coeff of Rosario (11.5-14.5) % Plt Count (130-400) K/uL MPV (7.4-10.4) fL Immature Gran % (Auto) % Neut % (Auto) % Lymph % (Auto) % Tate % (Auto) % Eos % (Auto) % Baso % (Auto) % Immature Gran # (Auto) (0.00-0.02) K/uL Neut # (Auto) (1.4-6.5) K/uL Lymph # (Auto) (1.2-3.4) K/uL Tate # (Auto) (0.11-0.59) K/uL Eos # (Auto) (0-0.5) K/uL Baso # (Auto) (0-0.2) K/uL Absolute Nucleated RBC (0-0) K/uL Nucleated RBC % (auto) % PT (9.0-12.0) Seconds INR (0.9-1.1) APTT (21.0-31.0) Seconds PTT Ratio VBG pH 7.18 L (7.36-7.41) VBG pCO2 58 H (38-50) mmHg VBG pO2 82 mmHg VBG HCO3 21 mmol/L VBG O2 Saturation 92.0 % VBG Base Excess -7.7 mEq/L Barometric Pressure 724.2 mm/Hg POC Sodium 135 (135-144) mEq/L Sodium (136-145) mmol/L POC Potassium 3.6 (3.3-5.0) mEq/L Potassium (3.5-5.1) mmol/L POC Chloride 104 (101-112) mEq/L Chloride (98-107) mmol/L Carbon Dioxide (21-32) mmol/L POC Total CO2 23 L (24-31) mEq/l Anion Gap (3-11) POC Anion Gap 13.0 L (16-25) mmol/L POC BUN 23 H (7-18) mg/dl BUN (7-18) mg/dl Creatinine (0.6-1.2) mg/dl POC Creatinine 1.6 H (0.6-1.3) mg/dl Est Cr Clr Drug Dosing Est GFR ( Amer) Est GFR (Non-Af Amer) BUN/Creatinine Ratio (10-20) Glucose (70-99) mg/dl POC Glucose (other) 180 H (70-99) mg/dl POC Lactic Acid Sg 7.98 H (0.90-1.70) mmol/L Calcium (8.5-10.1) mg/dl POC Ioniz Calcium Boy 1.06 L (1.12-1.32) mmol/l Magnesium (1.8-2.4) mg/dl Total Bilirubin (0.2-1) mg/dl Direct Bilirubin (0-0.2) mg/dl AST (15-37) U/L ALT (12-78) U/L Alkaline Phosphatase (45-117) U/L Ammonia (11-32) umol/L Total Creatine Kinase (26-192) U/L Troponin I (0-0.045) ng/ml Total Protein (6.4-8.2) gm/dl Albumin (3.4-5.0) gm/dl Lipase (73-393) U/L Urine Color Urine Appearance (Clear) Urine pH (4.5-7.5) Ur Specific [place] (1.000-1.030) Urine Protein (Negative) Urine Glucose (UA) (Negative) Urine Ketones (Negative) Urine Blood (Negative) Urine Nitrite (Negative) Urine Bilirubin (Negative) Urine Urobilinogen (Negative) Ur Leukocyte Esterase (Negative) Influenza Type A (PCR) (Neg) Influenza Type B (PCR) (Neg) Blood Type Antibody Screen 08/28/18 08/28/18 08/29/18 Range/Units 23:29 23:29 00:04 WBC (4.8-10.8) K/uL RBC (4.2-5.4) M/uL Hgb (12.0-16.0) g/dL POC Hgb (12.0-16.0) g/dl Hct (37-47) % POC Hct (37-47) % MCV (80-100) fL MCH (25-34) pg MCHC (32-36) g/dL RDW Std Deviation (36.4-46.3) fL RDW Coeff of Rosario (11.5-14.5) % Plt Count (130-400) K/uL MPV (7.4-10.4) fL Immature Gran % (Auto) % Neut % (Auto) % Lymph % (Auto) % Tate % (Auto) % Eos % (Auto) % Baso % (Auto) % Immature Gran # (Auto) (0.00-0.02) K/uL Neut # (Auto) (1.4-6.5) K/uL Lymph # (Auto) (1.2-3.4) K/uL Tate # (Auto) (0.11-0.59) K/uL Eos # (Auto) (0-0.5) K/uL Baso # (Auto) (0-0.2) K/uL Absolute Nucleated RBC (0-0) K/uL Nucleated RBC % (auto) % PT (9.0-12.0) Seconds INR (0.9-1.1) APTT (21.0-31.0) Seconds PTT Ratio VBG pH (7.36-7.41) VBG pCO2 (38-50) mmHg VBG pO2 mmHg VBG HCO3 mmol/L VBG O2 Saturation % VBG Base Excess mEq/L Barometric Pressure mm/Hg POC Sodium (135-144) mEq/L Sodium (136-145) mmol/L POC Potassium (3.3-5.0) mEq/L Potassium (3.5-5.1) mmol/L POC Chloride (101-112) mEq/L Chloride (98-107) mmol/L Carbon Dioxide (21-32) mmol/L POC Total CO2 (24-31) mEq/l Anion Gap (3-11) POC Anion Gap (16-25) mmol/L POC BUN (7-18) mg/dl BUN (7-18) mg/dl Creatinine (0.6-1.2) mg/dl POC Creatinine (0.6-1.3) mg/dl Est Cr Clr Drug Dosing Est GFR ( Amer) Est GFR (Non-Af Amer) BUN/Creatinine Ratio (10-20) Glucose (70-99) mg/dl POC Glucose (other) (70-99) mg/dl POC Lactic Acid Sg (0.90-1.70) mmol/L Calcium (8.5-10.1) mg/dl POC Ioniz Calcium Boy (1.12-1.32) mmol/l Magnesium (1.8-2.4) mg/dl Total Bilirubin (0.2-1) mg/dl Direct Bilirubin (0-0.2) mg/dl AST (15-37) U/L ALT (12-78) U/L Alkaline Phosphatase (45-117) U/L Ammonia 18.0 (11-32) umol/L Total Creatine Kinase (26-192) U/L Troponin I (0-0.045) ng/ml Total Protein (6.4-8.2) gm/dl Albumin (3.4-5.0) gm/dl Lipase (73-393) U/L Urine Color Urine Appearance (Clear) Urine pH (4.5-7.5) Ur Specific [place] (1.000-1.030) Urine Protein (Negative) Urine Glucose (UA) (Negative) Urine Ketones (Negative) Urine Blood (Negative) Urine Nitrite (Negative) Urine Bilirubin (Negative) Urine Urobilinogen (Negative) Ur Leukocyte Esterase (Negative) Influenza Type A (PCR) Neg for Influ A (Neg) Influenza Type B (PCR) Neg for Influ B (Neg) Blood Type A Positive Antibody Screen NEGATIVE 08/29/18 Range/Units 00:04 WBC (4.8-10.8) K/uL RBC (4.2-5.4) M/uL Hgb (12.0-16.0) g/dL POC Hgb (12.0-16.0) g/dl Hct (37-47) % POC Hct (37-47) % MCV (80-100) fL MCH (25-34) pg MCHC (32-36) g/dL RDW Std Deviation (36.4-46.3) fL RDW Coeff of Rosario (11.5-14.5) % Plt Count (130-400) K/uL MPV (7.4-10.4) fL Immature Gran % (Auto) % Neut % (Auto) % Lymph % (Auto) % Tate % (Auto) % Eos % (Auto) % Baso % (Auto) % Immature Gran # (Auto) (0.00-0.02) K/uL Neut # (Auto) (1.4-6.5) K/uL Lymph # (Auto) (1.2-3.4) K/uL Tate # (Auto) (0.11-0.59) K/uL Eos # (Auto) (0-0.5) K/uL Baso # (Auto) (0-0.2) K/uL Absolute Nucleated RBC (0-0) K/uL Nucleated RBC % (auto) % PT (9.0-12.0) Seconds INR (0.9-1.1) APTT (21.0-31.0) Seconds PTT Ratio VBG pH (7.36-7.41) VBG pCO2 (38-50) mmHg VBG pO2 mmHg VBG HCO3 mmol/L VBG O2 Saturation % VBG Base Excess mEq/L Barometric Pressure mm/Hg POC Sodium (135-144) mEq/L Sodium (136-145) mmol/L POC Potassium (3.3-5.0) mEq/L Potassium (3.5-5.1) mmol/L POC Chloride (101-112) mEq/L Chloride (98-107) mmol/L Carbon Dioxide (21-32) mmol/L POC Total CO2 (24-31) mEq/l Anion Gap (3-11) POC Anion Gap (16-25) mmol/L POC BUN (7-18) mg/dl BUN (7-18) mg/dl Creatinine (0.6-1.2) mg/dl POC Creatinine (0.6-1.3) mg/dl Est Cr Clr Drug Dosing Est GFR ( Amer) Est GFR (Non-Af Amer) BUN/Creatinine Ratio (10-20) Glucose (70-99) mg/dl POC Glucose (other) (70-99) mg/dl POC Lactic Acid Sg (0.90-1.70) mmol/L Calcium (8.5-10.1) mg/dl POC Ioniz Calcium Boy (1.12-1.32) mmol/l Magnesium (1.8-2.4) mg/dl Total Bilirubin (0.2-1) mg/dl Direct Bilirubin (0-0.2) mg/dl AST (15-37) U/L ALT (12-78) U/L Alkaline Phosphatase (45-117) U/L Ammonia (11-32) umol/L Total Creatine Kinase (26-192) U/L Troponin I (0-0.045) ng/ml Total Protein (6.4-8.2) gm/dl Albumin (3.4-5.0) gm/dl Lipase (73-393) U/L Urine Color Yellow Urine Appearance Clear (Clear) Urine pH 6.0 (4.5-7.5) Ur Specific [place] 1.023 (1.000-1.030) Urine Protein Negative (Negative) Urine Glucose (UA) Negative (Negative) Urine Ketones Negative (Negative) Urine Blood Negative (Negative) Urine Nitrite Negative (Negative) Urine Bilirubin Negative (Negative) Urine Urobilinogen Negative (Negative) Ur Leukocyte Esterase Negative (Negative) Influenza Type A (PCR) (Neg) Influenza Type B (PCR) (Neg) Blood Type Antibody Screen Imaging Data Radiologist's Impression: Radiology results as stated below per my review and the radiologist's interpretation: CT HEAD: Impression: No intracranial hemorrhage or other acute intracranial abnormality. CTA CHEST: Impression: Evaluation for pulmonary embolism is degraded by heterogeneous opacification of the pulmonary arteries. However no large central pulmonary embolism is identified. Bilateral dependent atelectasis with more consolidated appearance. Aspiration could have a similar appearance. Hypodensity near the expected location of the tail of the pancreas likely corresponds to preciously described pancreatic mass. Additional irregular appearance of the liver corresponds to reported history of hepatic metastasis with pneumobilia. ECG Data Attestation: I personally reviewed and interpreted this ECG as follows: Blood Pressure Blood Pressure Findings: Normal blood pressure MDM Narrative 2250: Past medical records reviewed. The patient was evaluated in room A1, and a complete history and physical examination were performed.The patient was immediately seen and bagged with Ambu bag upon arrival. The patients said that she does not have a defined code status and wants everything done for her. 2301: The patient was intubated. See procedure note. 2314: The patients lactate was 7. IV fluids were started wide open. Her creatinine was 1.6 She has a history of bilateral pulmonary embolism. Give her history, we will proceed with CTA to rule out PE. 2358: Vital signs improved. Blood pressures normalized and her heart rate is improved into the low 1 teens. Patient is on the ventilator currently. CTs show no acute ICH, CTA of the chest shows no PE but does show possible right- sided aspiration. The patient's states that the patient does tend to vomit a lot after receiving chemotherapy. I spoke with the patient's daughter who is a physician on the 's cell phone and updated her on the patient's condition. She thanked me for calling and agreed with the decision to intubate the patient at this time. 0003: Labs show a leukocytosis of 18.6. I reviewed the patient's case with Dr. Mcqueen- Computer Network And Systems Engineer. He states that it is very unlikely that meningitis or encephalitis would cause the patient to be obtunded due to the acute onset of symptoms. I agree and will hold off on performing a lumbar puncture at this point. Lumbar puncture was also held off due to the possibility of the patient having a metastatic lesion from her stage IV pancreatic cancer into her brain does not been able to be seen on CT of the head without contrast. Dr. Mcqueen agrees and will evaluate the patient for further management. I spoke with Dr. Yg steel and the hospitalist and he agreed to admit the patient. Impression & Plan Respiratory failure, Altered mental status, Seizure, Sepsis Critical Care Time I have personally spent greater than 80 minutes of critical care time in the direct management of this patient. This includes bedside care, interpretation of diagnostic studies, and testing, discussion with consultants, patient, and family members, and other required patient management activities. This 80 minutes is in excess of all separately billable procedures. Critical Care Time: Yes (80) Total Critical Care Time: 80 Discharge Plan Visit Data *Final* Discharge Date/Time: 08/29/18 01:45 Chief Complaint: Unresponsive ED Provider: Lj Huynh Discharge Problem: Respiratory failure, Altered mental status, Seizure, Sepsis Patient Disposition: Admitted As Inpatient Discharge Instructions Interventions: ED Discharge Assessment Last Done: 08/29/18 01:45 The scribe's documentation has been prepared under my direction and personally reviewed by me in its entirety. I confirm that the note above accurately reflects all work, treatment, procedures, and medical decision making performed by me.
[2018-08-29] MEDS ORDERED: VANCOMYCIN HCL 1,500 MG in SODIUM CHLORIDE 0.9% 500 ML IV ONE (03:00)
[2018-08-29] MEDS: LACTATED RINGER'S 1,000 ML IV SCH ×4 (03:03→19:16)
[2018-08-29] MEDS: HYDROCORTISONE SOD 50 MG in SYRINGE 0 ML IV SCH ×3 (06:46→21:32)
[2018-08-29 06:54] LABS: Estimated Average Glucose 131 mg/dl
[2018-08-29] MEDS ORDERED: MIDAZOLAM HCL 1 MG/ML 2ML VIAL ONE (07:34)
[2018-08-29] MEDS ORDERED: Nursing to Pharmacy Communication ONE (07:38)
[2018-08-29] MEDS ORDERED: MIDAZOLAM HCL 1 MG/ML 2ML VIAL IV STA (07:39)
--- NOTE | 2018-08-29 08:27 | Magnetic Resonance Report ---
MRI OF THE BRAIN WITHOUT CONTRAST CLINICAL HISTORY: Seizures. History of pancreatic and breast cancer. COMPARISON STUDY: MRI of the brain April 27, [address] August 28, 2018. TECHNIQUE: Utilizing a 1.5 Ashely magnet, multiplanar, multiecho imaging of the brain was performed wi thout intravenous contrast due to patient's relative renal insufficiency. FINDINGS: Diffusion-weighted sequence demonstrates restricted diffusion within the cortex of the left parietal, occipital and posterior left temporal lobes. There is also a focus of restricted diffusion within the left thalamus. There is an adjacent 2 cm T2 hypointense subcortical focus within the left parietal lobe on axial image 12 of 23. A few additional scattered T2 hyperintense foci are noted. Th ciera are indeterminate. These are suboptimally assessed on this unenhanced exam. These include a focus within the left occipital lobe and right frontal lobe. Ventricular system is normal. Basilar cistern s are patent. There are no extra-axial collections. Flow-voids for the major intracranial vessels are present. IMPRESSION: 1. Restricted diffusion within the cortex of the left parietal, occipital and posterior left temporal lobes and the left thalamus. These may reflect acute infarcts. However, seizure related restricted r estricted diffusion could appear similar. 2. Several subcortical white matter T2 hyperintense foci, as described above. These are suboptimally assessed on this unenhanced exam and metastatic disease is within the differential. Although less lik catherine, encephalitis is also within the differential. Short-term follow-up MRI of the brain with and wit hout contrast could be obtained as indicated. Electronically signed by: Lio Lawton M.D. 08/29/2018 8:26 AM
[2018-08-29] MEDS ORDERED: INFLUENZA ADMINISTRATION CHARGE ONE (08:30)
[2018-08-29] MEDS ORDERED: INFLUENZA VACCINE HIGH DOSE 65+ 0.5 ML SYR IM ONE (08:30)
[2018-08-29] MEDS ORDERED: ENOXAPARIN 80 MG/0.8 ML SYR SQ SCH ×2 (09:00→13:00)
[2018-08-29] MEDS: PROPOFOL 1,000 MG/100 ML VIAL IV SCH ×2 (09:06→19:17)
--- NOTE | 2018-08-29 09:23 | CT Scan Report ---
CT OF THE HEAD WITHOUT CONTRAST CLINICAL HISTORY: status epilepticus ams hypoxia pancreatic ca COMPARISON STUDY: MRI of the brain April 27, 2018. CT DOSE: TECHNIQUE: Helical axial images of the head were obtained without IV contrast. Automated exposure con trol was utilized for the study. A dose lowering technique was utilized adhering to the principles o f ALARA. FINDINGS: No acute intracranial hemorrhage, midline shift or mass effect is present. Ventricular syst em is unremarkable. The basilar cisterns are patent. There are no extra-axial collections. A 1.9 cm l eft parietal lobe white matter hypodensity is noted there is also a 2.1 cm right frontal lobe white m atter hypodensity. These are nonspecific. There are no suspicious calvarial lesions. IMPRESSION: 1. No acute intracranial hemorrhage. 2. A few nonspecific white matter hypodensities which are better assessed with subsequent MRI. Electronically signed by: Lio Lawton M.D. 08/29/2018 9:21 AM
--- NOTE | 2018-08-29 09:36 | CT Scan Report ---
CT ANGIOGRAPHY OF THE CHEST, PULMONARY EMBOLUS PROTOCOL CLINICAL HISTORY: Hypoxia. Seizure. Pancreatic cancer. COMPARISON STUDY: Chest CT July 26, 2018 and chest radiograph August 28, 2018. TECHNIQUE: Following IV administration of 119 mL of Optiray-320, helical axial images of the chest we re obtained utilizing the pulmonary embolus protocol. Maximal intensity projections and sagittal and coronal reformats were viewed on an independent 3D workstation. IV contrast was administered withou t complication. Automated exposure control was utilized for the study. A dose lowering technique wa s utilized adhering to the principles of ALARA. CT DOSE: 1105.31 mGy.cm FINDINGS: No central pulmonary emboli are identified. The segmental and subsegmental pulmonary arter ies are suboptimally assessed given respiratory motion. The heart is mildly enlarged. No enlarged tho racic lymph nodes are present. The endotracheal tube is just above the zachary. The tube could be with drawn 2 cm. A right subclavian [id number] is in place. There are trace bilateral pleural effusions . There is no pneumothorax. Subpleural bilateral lower lobe opacities favor atelectasis. There is abdon pected subpleural scarring within the left lung. A few pulmonary nodules are unchanged and [facility] of [facility] 2017. The pancreatic tail mass is partially imaged on this exam. Pneumobilia is again noted. A segment 4 hepatic metastasis is either unchanged or slightly decreased in size since prior exam. N o suspicious osseous lesion is noted. IMPRESSION: 1. No central or lobar pulmonary emboli. Remainder of pulmonary arteries suboptimally assessed given respiratory motion. 2. Trace bilateral pleural effusions with associated lower lobe airspace opacities which favor atelec tasis. Pneumonia could appear similar although is considered less likely. 3. Tip of endotracheal tube just above the zachary. The tube could be withdrawn 2 cm. 4. No change in several small pulmonary nodules. 5. Partial visualization of the pancreatic tail mass. Segment 4 hepatic metastasis, similar to prior CT. Electronically signed by: Lio Lawton M.D. 08/29/2018 9:34 AM
--- NOTE | 2018-08-29 09:37 | Neurology Consultation ---
Date of Consultation August 29, 2018 Assessment & Plan (1) Seizure: New onset seizures in an 82-year-old female with a history of metastatic pancreatic cancer. A recently completed noncontrast brain MRI appears consistent with metastatic disease and/or acute infarcts. She is currently unresponsive, sedated, on the ventilator. Case discussed with credit coordinator at bedside this morning. Would recommend continuing Keppra 1000 mg IV every 12 hours. She will need a follow-up contrast-enhanced brain MRI as well. Follow- up with EEG to be completed this morning. Would hold on pursuing a lumbar puncture for assessment of possible encephalitis given that the observed MRI characteristics suggest an alternative diagnosis. However, would reconsider obtaining a lumbar puncture pending completion of the contrast-enhanced MRI if the results are suggestive of encephalitis. I would also recommend a transthoracic echocardiogram with bubble study given the possibility of acute infarcts. Would restart Lovenox if there is no evidence of interval development of hemorrhage on the follow-up contrast-enhanced MRI. History of Present Illness Reason for Consultation: New onset seizures Requesting Physician: Lori Patterson MD Attending Physician: Modesto Trejo MD History of Present Illness The patient is an 82-year-old female who was found unresponsive by her yesterday afternoon at around 4 PM. She had received chemotherapy earlier that morning for metastatic pancreatic cancer and had been taking a nap. She had several seizures in route to the hospital per EMS and arrived in an altered fashion and was subsequently intubated for airway protection. She had been complaining of some chills prior to her presentation and did have a fever of 39.6 in the emergency department. Past medical history is also notable for bilateral pulmonary emboli for which she is prescribed Lovenox. A CT of the head was negative for hemorrhage or acute process. A follow-up noncontrast brain MRI was completed as well which revealed several areas of faint restricted diffusion involving the cortices of the left parietal and occipital lobes as well as the left thalamus. There are corresponding areas of increased signal observed on T2 and flair sequences as well, with a few additional similar appearing areas within the right cerebral hemisphere. To my eye, the imaging characteristics appear to be consistent with metastatic disease although acute infarcts and changes related to recent seizure activity are also possible. The imaging findings are not highly suggestive of encephalitis. The patient has received 1 g of Keppra IV. She remains unresponsive, on the ventilator this morning. Allergies Allergy/AdvReac Type Severity Reaction Status Date / Time No Known Allergies Allergy Unknown Verified 08/28/18 23:03 Home Medications Home Medications Medication Instructions Recorded Confirmed Type diclofenac sodium [Voltaren] 1 applic TOPICAL PRN UD PRN #0 01/07/18 08/28/18 History fluticasone [Flonase Allergy 2 spry MICHAEL QAM #0 01/07/18 08/28/18 History Relief] indapamide 1.25 mg PO QAM #0 tab 01/07/18 08/28/18 History metronidazole [Metrogel Vaginal] 1 applic TOPICAL PRN UD #0 01/07/18 08/28/18 History tramadol 50 - 100 mg PO Q4 PRN #0 tab 01/07/18 08/28/18 History oxycodone [OxyContin] 20 mg PO BID 30 Days #60 tab 02/14/18 08/28/18 History prochlorperazine maleate 10 mg PO Q6 PRN #0 02/14/18 08/28/18 History [Compazine] granisetron HCl 1 tab PO Q12 #0 04/24/18 08/28/18 History prednisone 10 mg PO DAILY #0 tab 04/24/18 08/28/18 History docusate sodium 100 mg PO BID 04/28/18 08/28/18 History ibuprofen 600 mg PO Q6H PRN 04/28/18 08/28/18 History enoxaparin [Lovenox] 70 mg SUBCUT Q12H #30 ml 04/29/18 08/28/18 Rx fluticasone 2 spry MICHAEL QAM #1 g 04/29/18 08/28/18 Rx magnesium oxide 400 mg PO BID #7 tab 04/29/18 08/28/18 Rx Patient History Medical History HTN (hypertension) (Acute) Osteoporosis (Acute) Osteopenia (Acute) Pancreatic cancer Bilateral pulmonary embolism (Acute) CHF (congestive heart failure) (Acute) Hypoxia (Acute) SOB (shortness of breath) Social History marital status: Current Living Situation: Spouse Smoking Status: Unknown if ever smoked Communication Ability: intubated Review of Systems A review of systems cannot be obtained as patient is unresponsive on the ventilator. Physical Exam 2 Vital Signs (Past 24 Hours): Last Vital Signs Temp 37.4 C 08/29/18 02:29 Pulse 91 H 08/29/18 07:43 Resp 20 08/29/18 07:43 BP 113/59 L 08/29/18 02:29 Pulse Ox 100 08/29/18 07:43 Physical Exam: The patient is a well-developed elderly female. She is lying comfortably, unresponsive, in bed in the ICU on the ventilator and is currently sedated. She grimaces to painful stimuli and will withdraw her limbs. Higher, integrative cognitive functioning including orientation, memory, concentration, speech pattern, and fund of knowledge cannot be assessed. Visual matta and visual acuity cannot be assessed. Pupils are 4 mm, equal round and reactive to light. There is no gaze preference or nystagmus. Eye movements cannot otherwise be assessed. Corneal reflex is intact bilaterally. Gag reflex intact. Movement of the tongue, palate, and shoulder shrug cannot be assessed. Hearing cannot be assessed. Sensation cannot be assessed. Deep tendon reflexes are diminished throughout. Plantar responses withdrawal bilaterally. Coordination cannot be assessed. Direct ophthalmoscopic examination cannot be completed due to patient's inability to cooperate with the examination. Carotid pulses intact bilaterally, no bruits to auscultation. Gait and station cannot be assessed. Muscle strength cannot be assessed. Muscle tone normal throughout. No atrophy. No abnormal movements observed. Results & Data Laboratory Results Labs of note include white blood cell count 18.16, sodium 135, BUN 25, creatinine 1.39, glucose 177 Diagnostic Findings Electrocardiogram revealed a heart rate of 151 bpm with an otherwise undetermined rhythm pattern.
--- NOTE | 2018-08-29 09:43 | XRay Report ---
XR chest 1V portable CLINICAL HISTORY: ETT placement COMPARISON STUDY: Chest CT July 26, 2018. FINDINGS: Tip of the endotracheal tube is 2.5 cm above the zachary. There are left axillary surgical c lips and a right subclavian [id number]. There is no evidence for pulmonary edema or pneumonia. Car diomediastinal silhouette is stable. There is no pneumothorax. IMPRESSION: Tip of endotracheal tube 2.5 cm above the zachary. Electronically signed by: Lio Lawton M.D. 08/29/2018 9:42 AM
[2018-08-29] MEDS ORDERED: GADOBUTROL 30ML VIAL IV PRN (11:33)
--- NOTE | 2018-08-29 11:49 | Procedure Note ---
EEG Procedure Note Date of Service August 29, 2018 Start / End Times Start Time: 10:01 AM End Time: 10:21 AM Referring Physician Lori Patterson MD History New onset seizures. Suspected brain metastasis. Home Medication List Home Medications Medication Instructions Recorded Confirmed Type diclofenac sodium [Voltaren] 1 applic TOPICAL PRN UD PRN #0 01/07/18 08/28/18 History fluticasone [Flonase Allergy 2 spry MICHAEL QAM #0 01/07/18 08/28/18 History Relief] indapamide 1.25 mg PO QAM #0 tab 01/07/18 08/28/18 History metronidazole [Metrogel Vaginal] 1 applic TOPICAL PRN UD #0 01/07/18 08/28/18 History tramadol 50 - 100 mg PO Q4 PRN #0 tab 01/07/18 08/28/18 History oxycodone [OxyContin] 20 mg PO BID 30 Days #60 tab 02/14/18 08/28/18 History prochlorperazine maleate 10 mg PO Q6 PRN #0 02/14/18 08/28/18 History [Compazine] granisetron HCl 1 tab PO Q12 #0 04/24/18 08/28/18 History prednisone 10 mg PO DAILY #0 tab 04/24/18 08/28/18 History docusate sodium 100 mg PO BID 04/28/18 08/28/18 History ibuprofen 600 mg PO Q6H PRN 04/28/18 08/28/18 History enoxaparin [Lovenox] 70 mg SUBCUT Q12H #30 ml 04/29/18 08/28/18 Rx fluticasone 2 spry MICHAEL QAM #1 g 04/29/18 08/28/18 Rx magnesium oxide 400 mg PO BID #7 tab 04/29/18 08/28/18 Rx Inpatient Medication List Gadobutrol (Gadavist 30ml) 7 ml IV ONCE PRN PRN Reason: Interaction Checking Stop: 09/02/18 11:32 Last Admin: 08/29/18 11:33 Dose: 7 ml Lactated Ringer's (Lr) 1,000 mls @ 125 mls/hr IV .Q8H [facility] Stop: 08/29/18 18:15 Last Admin: 08/29/18 04:56 Dose: 125 mls/hr Infusion: 08/29/18 04:56 Dose: 125 mls/hr Admin: 08/29/18 03:03 Dose: 125 mls/hr Hydrocortisone Sodium (Succinate 50 mg/ Syringe) 1 mls @ 4 mls/min IV Q8H [facility] Stop: 09/28/18 06:29 Last Admin: 08/29/18 06:46 Dose: 4 mls/min Propofol (Diprivan) 1,000 mg in 100 mls @ 8.592 mls/hr IV .[id number] [facility]; Protocol Stop: 09/01/18 08:44 Last Admin: 08/29/18 09:06 Dose: 20 mcg/kg/min, 8.6 mls/hr Ioversol (Optiray 320 125ml) 119 ml IV ONCE PRN PRN Reason: Interaction Checking Stop: 09/01/18 23:25 Last Admin: 08/28/18 23:26 Dose: 119 ml Discontinued Medications Acetaminophen (Tylenol) 650 mg [facility] NOW STA Stop: 08/29/18 00:46 Last Admin: 08/29/18 00:54 Dose: 650 mg Sodium Chloride (Nss 1000ml) 2,000 mls @ 999 mls/hr IV .Q2H1M ONE Stop: 08/29/18 01:06 Last Infusion: 08/29/18 02:15 Dose: 0 mls/hr Admin: 08/29/18 00:23 Dose: 999 mls/hr Piperacillin Sod/Tazobactam Sod (Zosyn) 4.5 gm in 120 mls @ 30 mls/hr IV NOW ONE Stop: 08/29/18 03:53 Last Infusion: 08/29/18 04:22 Dose: 30 mls/hr Admin: 08/29/18 00:22 Dose: 30 mls/hr Vancomycin HCl 1,500 mg/ (Sodium Chloride) 530 mls @ 200 mls/hr IV NOW ONE; Protocol Stop: 08/29/18 05:38 Last Infusion: 08/29/18 09:08 Dose: 0 mls/hr Admin: 08/29/18 04:55 Dose: 200 mls/hr Levetiracetam 1,000 mg/ (Dextrose) 110 mls @ 440 mls/hr IV TODAY@0900 ONE Stop: 08/29/18 09:14 Last Infusion: 08/29/18 09:56 Dose: 0 mls/hr Admin: 08/29/18 09:04 Dose: 440 mls/hr Midazolam HCl (Versed) Confirm Administered Dose 2 mg .ROUTE .STK-MED ONE Stop: 08/29/18 07:35 Last Admin: 08/29/18 07:37 Dose: 2 mg Midazolam HCl (Versed) 2 mg IV TODAY STA Stop: 08/29/18 07:40 Last Admin: 08/29/18 09:08 Dose: Not Given Miscellaneous () Confirm Administered Dose 1 ea .ROUTE .STK-MED ONE Stop: 08/28/18 22:50 Last Admin: 08/28/18 23:00 Dose: 1 ea Miscellaneous (Patient's Height And/Or Weight Needed) 1 ea N/A NOW ONE Stop: 08/29/18 02:46 Last Admin: 08/29/18 02:57 Dose: 1 ea Ondansetron HCl (Zofran) Confirm Administered Dose 4 mg .ROUTE .STK-MED ONE Stop: 08/28/18 22:59 Last Admin: 08/28/18 22:58 Dose: 4 mg Propofol (Diprivan) Confirm Administered Dose 1,000 mg IV .STK-MED ONE Stop: 08/28/18 23:48 Last Admin: 08/29/18 00:24 Dose: 1,000 mg Description This is a 21 electrode EEG with a single channel dedicated to limited EKG. The electrodes were placed in accordance with the International 10-20 system. This EEG was completed in the intensive care unit. There is a poorly organized background rhythm that consists of low amplitude mixed frequencies observed throughout the entire study. There fairly continuous left hemispheric slowing of moderate amplitude with a frequency of about 3.5 Hz. There are no epileptiform abnormalities. Interpretation This EEG suggests a severe encephalopathy as well as focal left hemispheric cerebral dysfunction or an underlying structural abnormality. The findings are not suggestive of status epilepticus at this time. Clinical Correlation Focal left hemispheric dysfunction as described above and potentially consistent with WASHROOM ATTENDANT metastases or possibly acute infarcts as observed on recently completed brain MRI. Nonspecific encephalopathy. Please see today's neurology consultation for further details.
--- NOTE | 2018-08-29 12:13 | Magnetic Resonance Report ---
ADDENDUM Addendum: An additional consideration for these findings is posterior reversible encephalopathy syndr ome (PRES). Electronically signed by: Lio Lawton M.D. 08/29/2018 12:22 PM ORIGINAL REPORT MRI OF THE BRAIN WITHOUT AND WITH IV CONTRAST SEIZURE PROTOCOL CLINICAL HISTORY: Seizure. Pancreatic cancer. Evaluate for metastatic disease. COMPARISON STUDY: MRI of the brain April 27, 2018 and August 29, 2018. TECHNIQUE: Utilizing a 1.5 Ashely magnet and dedicated coil, multiplanar, multiecho imaging of the br ain was performed pre and postcontrast administration. IV administration of 7 mL of Gadavist contras t was uneventful. Thin cut coronal T2 imaging was performed according to seizure protocol. FINDINGS: Note is made of cortical restricted diffusion within the left parietal occipital and science education professor ior left temporal lobes which is unchanged since MRI performed earlier today. This also subtle restri cted diffusion within the posterior left thalamus extending into the medial left temporal lobe. There are multiple subcortical white matter T2 hyperintense foci, including a 2.3 cm focus within the left parietal lobe, a 2.4 cm left occipital lobe focus and a 2 cm right frontal lobe focus. These foci do not enhance. There is no pathologic enhancement on the postcontrast images. Ventricular system is no rmal. The basilar cisterns are patent. There are no extra-axial collections. Flow-voids for the major intracranial vessels are present. Calvarial signal is normal. IMPRESSION: 1. Restricted diffusion within the left parietal, occipital and left temporal lobes as well as the le ft thalamus. These may reflect acute infarcts however the distribution raises the possibility of seiz ure related restricted diffusion. 2. Multiple subcortical white matter T2 hyperintense foci, several of which are subjacent to the foci of cortical restricted diffusion. No associated enhancement. These T2 hyperintense foci are nonspeci fic however may also be seizure related. Metastatic disease is considered less likely given the lack of enhancement. An infectious process such as encephalitis remains within the differential. Short-ter m follow-up MRI of the brain is recommended if persistent symptoms. Electronically signed by: Lio Lawton M.D. 08/29/2018 12:12 PM
[2018-08-29 13:38] LABS: Creatinine Clr Calc Pharmacy 31.3 ml/min; Est GFR (African American) 40.7; Est GFR (Non-African American) 35.1
--- NOTE | 2018-08-29 14:18 | Family Medicine Progress Note ---
Date of Service August 29, 2018 Assessment & Plan (1) Altered mental status: Ms Tequila Dela Cruz is an 82 year old woman here for Altered mental status. There was some report of rigors vs a seizure that she had en route to [facility]. Head CT in ER was normal, brain MRI shows large area of potential stroke vs post seizure changes. As well as several small foci potentially showing metastases from her stage 4 pancreatic cancer. Patient has been started on Keppra 1 g for further seizure prevention ICU will manage for now, we are following patient closely in hope of step down. Supervising Physician Co-Signing Physician Notes Attending attestation Pt seen and examined in concert with Dr. Rodriguez. In agreement with the documented findings as noted in the resident documentation with any exceptions or additions as noted here. Pt seen and examined at bedside - intubated and responsive to physical touch. Spouse present at bedside - on discussion, has discussed this type of situation w/ patient in the past and is POA, patient "would not want to prolong things if the time were to come". On examination, S1/S2 nl RRR no MCG. Rhonchorous breath sounds diffusely Acute hypoxic respiratory failure w/ hypercapnea & new onset seizure in the setting of CVA - supervisor coffee and neurology consultation appreciated - trial of CPAP today, continue keppra. EEG pending h/o bilateral pulmonary embolism in the setting of metastatic pancreatic CA - continue enoxaparin ANITA - baseline ~1.1 - continue IVF HTN - normotensive at present, continue fluids and monitoring Diastolic CHF - monitor I/O, respiratory status in the setting of respiratory support Ez Dela Cruz is an 82 year old woman with stage 4 pancreatic adenocarcinoma currently receiving gemcitibine and abraxane chemotherapy here for sudden altered mental status that started yesterday evening. She was intubated on arrival and is resting on the vent currently. Her is aware of the situation and her daughter is on her way today. Physical Exam 2 Vital Signs (Past 24 Hours): Last Vital Signs Temp 36.9 C 08/29/18 11:45 Pulse 78 08/29/18 14:00 Resp 14 08/29/18 14:00 BP 130/70 08/29/18 14:00 Pulse Ox 100 08/29/18 14:00 Constitutional: + frail appearing; no acute distress Intubated Eyes: PERRL; no conjunctival abnormality and no scleral abnormality Respiratory: symmetric chest movement Auscultation: lungs clear to auscultation bilaterally; no diminished lung sounds, no crackles, no rales, no rhonchi and no wheezes On vent Cardiovascular: Rate/Rhythm: regular rate and regular rhythm _ (1) Altered mental status Altered mental status type: unspecified Coma depth: Coma timing: Qualified Code(s): R41.82 - Altered mental status, unspecified
--- NOTE | 2018-08-29 14:27 | Critical Care Consultation ---
Date of Consultation August 29, 2018 Assessment & Plan (1) Altered mental status: Impression: 1. New onset seizure, thought to be related to metastasis, MRI of the brain with gadolinium did not show ring-enhancing lesions, more consistent with multiple CVAs. 2. Although the patient did have one episode of fever, in addition to lactic acidosis and leukocytosis, I do believe that all these findings are in the face of new onset seizure rather than an infectious process. 3. CVA, acute, etiology is pending likely embolic. 4. PE bilaterally, maintained on Lovenox. 5. Pancreatic CA with metastasis, status post common bile duct stenting, pneumobilia was noted on the abdominal CAT scan. 6. History of CHF, I could not confirm it with previous echocardiogram. Plan: 1. I will discontinue antibiotics, one episode of fever, accompanied with leukocytosis and lactic acidosis around the time when the patient had a witnessed seizure. 2. Start the patient on Keppra, 1 g IV every 12 hours. 3. Continue CPAP trial. 4. Once the patient is awake and following commands, will extubate the patient. 5. Appreciate Dr. Cole input from neurology. 6. EEG was done, formal report is pending. No evidence of seizures preliminary. 7. MRI of the brain with gadolinium was obtained showing multiple areas of abnormality favoring embolic CVA than metastatic disease. 8. Discussed with the daughter and the at the bedside, they want to continue with full code at this point. 9. Continue with IV fluids. Patient just received IV contrast for MRI. 10. I will hold off on lumbar puncture for now. 11. Continue Lovenox full dose for PE. 12. Discussed with the staff, and multiple disciplines including neurology and radiology over the phone. Critical care time spent with the patient was 60 minutes. History of Present Illness Reason for Consultation: New onset seizure Requesting Physician: Dr. Campo Attending Physician: Modesto Trejo MD History of Present Illness Dear Dr. Campo: Thank you for the kind referral Mrs. Dela Cruz to critical care service. This is 82-year-old female with a history of recently diagnosed pancreatic cancer with metastasis to the liver, status post common bile duct stenting, chemo was started and given just prior to her admission to the hospital. The patient returned home after she received her chemo and the noted that she started having shivering according to him. Later on the patient become unresponsive at home and they called 911 and brought the patient to the ER where the patient was postictal according to the ER staff. The patient was intubated for airway protection. Review of system was not obtainable, but in discussion with the family, the patient did not have any pain, no nausea or vomiting reported, no diarrhea, no hematemesis or hemoptysis. After intubation , the patient had an NG tube was placed which showed coffee-ground material. Her hematocrit however remains stable. No altered mental status, 2 witnessed seizures were noted in the ambulance. The patient did not have any leg pain, cramps in her legs, increased swelling in her lower extremities noted by the family. The rest of her review of system was otherwise unremarkable. Family history is not contributing to her current illness. Her past medical history significant for pancreatic CA diagnosed in December 2017, bilateral PE diagnosed recently in June 2018, history of hypertension, and now with new onset seizure disorder. Mentioned that the patient has history of CHF, but I could not confirm it with the previous echocardiogram as well. The patient social history and past surgical history is not obtainable. Placement of a stent in her common bile duct was noted on previous CAT scan of the abdomen. Allergies Allergy/AdvReac Type Severity Reaction Status Date / Time No Known Allergies Allergy Unknown Verified 08/28/18 23:03 Home Medications Home Medications Medication Instructions Recorded Confirmed Type diclofenac sodium [Voltaren] 1 applic TOPICAL PRN UD PRN #0 01/07/18 08/28/18 History fluticasone [Flonase Allergy 2 spry MICHAEL QAM #0 01/07/18 08/28/18 History Relief] indapamide 1.25 mg PO QAM #0 tab 01/07/18 08/28/18 History metronidazole [Metrogel Vaginal] 1 applic TOPICAL PRN UD #0 01/07/18 08/28/18 History tramadol 50 - 100 mg PO Q4 PRN #0 tab 01/07/18 08/28/18 History oxycodone [OxyContin] 20 mg PO BID 30 Days #60 tab 02/14/18 08/28/18 History prochlorperazine maleate 10 mg PO Q6 PRN #0 02/14/18 08/28/18 History [Compazine] granisetron HCl 1 tab PO Q12 #0 04/24/18 08/28/18 History prednisone 10 mg PO DAILY #0 tab 04/24/18 08/28/18 History docusate sodium 100 mg PO BID 04/28/18 08/28/18 History ibuprofen 600 mg PO Q6H PRN 04/28/18 08/28/18 History enoxaparin [Lovenox] 70 mg SUBCUT Q12H #30 ml 04/29/18 08/28/18 Rx fluticasone 2 spry MICHAEL QAM #1 g 04/29/18 08/28/18 Rx magnesium oxide 400 mg PO BID #7 tab 04/29/18 08/28/18 Rx Patient History Medical History HTN (hypertension) (Acute) Osteoporosis (Acute) Osteopenia (Acute) Pancreatic cancer Bilateral pulmonary embolism (Acute) CHF (congestive heart failure) (Acute) Hypoxia (Acute) SOB (shortness of breath) Social History marital status: Current Living Situation: Spouse Smoking Status: Unknown if ever smoked Communication Ability: intubated Review of Systems Review of system is not obtainable due to the patient being intubated and sedated. Physical Exam 2 Vital Signs (Past 24 Hours): Last Vital Signs Temp 36.9 C 08/29/18 11:45 Pulse 78 08/29/18 14:00 Resp 14 08/29/18 14:00 BP 130/70 08/29/18 14:00 Pulse Ox 100 08/29/18 14:00 Physical Exam: Vital signs are stable, the patient blood pressure and heart rate has been stable, respiratory rate is 22 on CPAP, no fever was reported. Although there was earlier one episode of fever of 37.9. S1-S2, regular rate and rhythm, lungs are clear, abdomen is benign, no edema, skin discoloration noted, no swelling in her lower extremities, neurologically difficult to assess as the patient has been sedated on propofol earlier, she is off propofol now but awaiting for her to wake up while she is on CPAP trial. Results & Data Laboratory Results Labs were consistent with leukocytosis, lactic acidosis, drop in the bicarb, all in favor of recent seizure activity rather than sepsis. No evidence of infectious process in this patient. Diagnostic Findings CAT scan of the chest showed bibasilar small pleural effusion and compressive atelectasis, I did not see or appreciate any infiltrate. Head CT followed by head MRI as well as MRI of the brain with gadolinium, showed multiple areas of CVA, etiology is unknown, metastasis versus showering an emboli from the heart or the carotids. Echo and carotid ultrasounds are pending. _ (1) Altered mental status Altered mental status type: unspecified Coma depth: Coma timing: Qualified Code(s): R41.82 - Altered mental status, unspecified
--- NOTE | 2018-08-29 16:01 | Ultrasound Report ---
CAROTID ARTERY ULTRASOUND CLINICAL HISTORY: acute cva COMPARISON STUDY: None. TECHNIQUE: Real-time, grayscale, and color Doppler sonography of the carotid and vertebral arteries w as performed. Images were viewed in the transverse and longitudinal planes. FINDINGS: There is mild atherosclerotic plaque. Velocity measurements are listed below. COMMON CAROTID PEAK SYSTOLIC VELOCITY (CM/S): RIGHT 125 LEFT 142 ICA PEAK SYSTOLIC VELOCITY (CM/S): RIGHT 97 LEFT 120 Systolic ratios between the internal to common carotid arteries were normal. Antegrade flow is seen in the vertebral arteries. The external carotid arteries are patent. Blood pressure was not obtained in this patient due to limb restriction. IMPRESSION: Mild atherosclerotic plaque without evidence of a hemodynamically significant stenosis. Electronically signed by: Lio Lawton M.D. 08/29/2018 3:59 PM
[2018-08-29] MEDS ORDERED: VANCOMYCIN HCL 500 MG in SODIUM CHLORIDE 0.9% 250 ML IV SCH (20:00)
[2018-08-29] MEDS ORDERED: VANCOMYCIN HCL 1,000 MG in SODIUM CHLORIDE 0.9% 500 ML IV SCH (20:00)
[2018-08-29] MEDS: levETIRAcetam 750 MG in DEXTROSE 5% 100 ML IV SCH (20:23)
[2018-08-29] MEDS: ENOXAPARIN 80 MG/0.8 ML SYR SQ SCH (21:32)
[2018-08-30] MEDS: LACTATED RINGER'S 1,000 ML IV SCH ×3 (03:41→23:31)
[2018-08-30 04:52] LABS: Hemoglobin 9.2 g/dL (12.0-16.0); Immature Granulocytes # (auto) 0.01 K/uL (0.00-0.02); Immature Granulocytes % (auto) 0.2 %; Lymphocytes # (auto) 0.83 K/uL (1.2-3.4); Lymphocytes % (auto) 13.8 %; Mean Corpuscular Hgb Conc 31.7 g/dL (32-36); Mean Corpuscular Volume 101.4 fL (80-100); Mean Platelet Volume 9.8 fL (7.4-10.4); Monocytes # (auto) 0.17 K/uL (0.11-0.59); Monocytes % (auto) 2.8 %; Neutrophils # (auto) 4.99 K/uL (1.4-6.5); Neutrophils % (auto) 83.2 %; Nucleated RBC # (auto) 0.02 K/uL (0-0); Nucleated RBC % (auto) 0.3 %; Platelet Count 423 K/uL (130-400); RDW Coefficient of Variation 18.7 % (11.5-14.5); RDW Standard Deviation 66.6 fL (36.4-46.3); Red Blood Count 2.86 M/uL (4.2-5.4)
[2018-08-30 05:11] LABS: BUN Creatinine Ratio 18.8 (10-20); Calcium 7.8 mg/dl (8.5-10.1); Creatinine Clr Calc Pharmacy 42.1 ml/min; Est GFR (African American) 58.1; Est GFR (Non-African American) 50.1; Magnesium 1.8 mg/dl (1.8-2.4); Phosphorus 3.1 mg/dl (2.5-4.9); Potassium 3.3 mmol/L (3.5-5.1)
[2018-08-30] MEDS: HYDROCORTISONE SOD 50 MG in SYRINGE 0 ML IV SCH ×3 (05:52→23:30)
[2018-08-30] MEDS ORDERED: VANCOMYCIN HCL 1,000 MG in SODIUM CHLORIDE 0.9% 250 ML IV SCH (07:15)
[2018-08-30 09:05] LABS: Anisocytosis Present; Ovalocytes 1+
--- NOTE | 2018-08-30 09:23 | Neurology Progress Note ---
Date of Service August 30, 2018 Assessment & Plan (1) Seizure: Seizures. Stable. Continue with Keppra 750 mg twice daily. (2) Stroke: Contrast-enhanced MRI findings more suggestive of embolic infarcts then metastatic disease. Hypercoagulable state related to metastatic pancreatic cancer is a likely risk factor. History also notable for bilateral pulmonary emboli for which she has been taking Lovenox. Patient may continue with this treatment. She has a residual receptive greater than expressive aphasia as well as left hemineglect on examination this morning. I suspect some motor deficits as well although a full motor examination cannot be reliably completed due to patient's significant receptive aphasia. She may also have some right visual field neglect or deficit as well as 1 of her infarcts is in the left occipital lobe. However, her visual matta cannot be reliably assessed due to her receptive aphasia. A short-term follow-up gadolinium enhanced brain MRI should be completed to further exclude the possibility of metastatic foci as well as further assessment for the possibility of seizure related diffusion-weighted changes. This patient will need comprehensive rehabilitation services from PT/OT, and speech therapy. Would also plan for outpatient visual field assessment. Subjective Follow-up for seizures and abnormal brain MRI findings The patient is an 82-year-old female with a history of metastatic pancreatic cancer who presented with several seizures and altered mental status. Her brain MRI has revealed multiple areas of restricted diffusion within multiple areas of the left cerebral hemisphere that appear a bit unusual but are felt to be consistent with either acute infarcts, recent seizure activity, or metastatic foci. However, metastatic foci considered less likely given lack of abnormal postcontrast enhancement. The patient has been receiving Keppra for her seizures, the dosage was adjusted to account for her chronic renal insufficiency. The patient was extubated yesterday. Her and daughter are at bedside this morning. She has been alert but significantly confused/ aphasic. No further seizures have been observed. The patient denies headache, weakness, or pain but is an extremely unreliable historian due to her rather significant aphasia which appears to be of the receptive variety as described below in the examination. A review of systems cannot be obtained due to patient's significant receptive aphasia Physical Exam 2 Vital Signs (Past 24 Hours): Last Vital Signs Temp 37.4 C 08/30/18 04:16 Pulse 92 H 08/30/18 07:01 Resp 12 08/30/18 07:01 BP 148/74 H 08/30/18 07:01 Pulse Ox 99 08/30/18 07:01 Physical Exam: The patient is alert. She has extremely poor verbal comprehension and is unable to follow commands, answer questions, or repeat phrases. She will sometimes answer questions with repetitive inappropriate words or phrases. She is unable to state her name and appears unable to specifically identify her and daughter who are at bedside this morning. She tends to lean off to the right-hand side and exhibits moderate to severe left-sided neglect. She will track examiners to her left when prompted with voice. Visual matta cannot be assessed due to her aphasia. Eye movements are grossly intact. There is no facial droop or gross facial asymmetry present. Tongue and palate midline. The patient does not move either the left or right side to command and keeps her arms down at her sides. She does not cooperate for testing a pronator drift or movements in general. Strength cannot be adequately assessed. Results & Data Diagnostic Findings An EEG completed yesterday revealed focal left hemispheric slowing suggestive of focal cerebral dysfunction or an underlying structural abnormality. No epileptiform abnormalities observed. There was also evidence of a moderate to severe encephalopathy. A transthoracic echocardiogram was negative for cardioembolic source. Carotid ultrasound was negative for hemodynamically significant stenosis.
[2018-08-30] MEDS: PROPOFOL 1,000 MG/100 ML VIAL IV SCH (09:39)
[2018-08-30] MEDS: levETIRAcetam 750 MG in DEXTROSE 5% 100 ML IV SCH ×2 (09:40→20:01)
[2018-08-30] MEDS: POTASSIUM CHLORIDE / WTR 20 MEQ/100 ML PLCT IV SCH ×2 (09:40→11:44)
[2018-08-30] MEDS: ENOXAPARIN 80 MG/0.8 ML SYR SQ SCH ×2 (10:35→13:36)
--- NOTE | 2018-08-30 12:28 | Critical Care Progress Note ---
Date of Service August 30, 2018 Assessment & Plan (1) Altered mental status: Impression: 1. New onset seizure, new onset CVA versus metastasis. First MRI with gadolinium supported a diagnosis of CVA. 2. Receptive and expressive aphasia noted secondary to CVA. 3. History of PE, has been maintained on Lovenox. 4. Acute respiratory failure, resolved, patient is extubated successfully. 5. Pancreatic CA with metastasis, status post common bile duct stenting, pneumobilia was noted on the abdominal CAT scan. 6. History of CHF, I could not confirm it with previous echocardiogram. Plan: 1. Keep the patient off antibiotics, the patient has Staphylococcus coags negative which is contaminant. 2. Continue Keppra 750 mg every 12 hours adjusted dose. 3. Agree with extubation. 4. The patient remains aphasic, neurology follow-up noted. 5. Appreciate Dr. Cole input from neurology. 6. No evidence of recurrent seizure activity. 7. Recommended repeat MRI in the next 1-2 days. 8. Discussed with the daughter and the at the bedside, they want to continue with full code at this point. 9. Appreciate speech pathology, the patient cleared for oral intake and started on oral intake. 10. The patient is not showing signs of pain in the morning, if she started having pain we will start the patient on fentanyl patch. I would hold off for now to avoid altering her mental status for exams. 11. Continue Lovenox full dose for PE. 12. Disposition plan to regular floor. 13. Physical therapy. 14. Initiate day 2 care post CVA. Critical care time spent with the patient was 60 minutes. Subjective The patient extubated successfully, the patient is aphasic, she does have receptive and expressive aphasia, I could not had any answer in the right way, the family were at the bedside, they asked her also similar questions, I did not see proper response. Apart from that, the patient tolerated oral intake, she did not have any vomiting, no evidence of pain although it is very difficult to communicate with the patient. The review of system was difficult to obtain due to aphasia. Appears to be expressive and receptive. Physical Exam 2 Vital Signs (Past 24 Hours): Last Vital Signs Temp 37.4 C 08/30/18 04:16 Pulse 92 H 08/30/18 07:01 Resp 12 08/30/18 07:01 BP 148/74 H 08/30/18 07:01 Pulse Ox 99 08/30/18 07:01 Physical Exam: Her physical exam revealed vital signs are stable, S1-S2 regular rate and rhythm, O2 saturation is to be maintained on room air at 95%, respiratory rate is 20, no stridor, no carotid bruit, S1-S2 regular rate and rhythm, distant breath sounds bilaterally, abdomen is benign, no edema in the periphery, she has Port-A-Cath in the right subclavian. Neurologic exam performed by me, the patient could not cooperate, she was able to move her eyes to the left following my finger however she could not see it to the right side, the patient neglected entirely her right side to my exam. Pupils are equally reactive, could not perform tongue movements or open her mouth or have a bite, did not move her upper or lower extremities to command but she did spontaneously, sensory loss cannot be determined, gait was not attempted. Results & Data Laboratory Results Labs were reviewed personally. Her white count is improving. No evidence of infection. The patient has Staphylococcus coags negative in 1 bottle and it is contaminant. Diagnostic Findings MRI of the head with gadolinium was noted for multiple areas of CVA, EEG did not show any active seizures, reviewed by report and personally. _ (1) Altered mental status Altered mental status type: unspecified Coma depth: Coma timing: Qualified Code(s): R41.82 - Altered mental status, unspecified
[2018-08-30] MEDS: ASPIRIN 81 MG CHEW PO SCH (13:36)
--- NOTE | 2018-08-30 14:05 | Family Medicine Progress Note ---
Date of Service August 30, 2018 Assessment & Plan (1) Stroke: New CVA in setting of malignancy with possible brain mets. Continuing Keppra 750 mg for seizure prophylaxis ASA 81 Will get follow up MRI tomorrow Rehab as tolerated Continue to monitor progress Bilateral pulmonary embolism Continuing lovenox 70 mg sub q No change to breathing Metastatic pancreatic cancer Up to date with her chemo treatments On chronic oxycodone for abdominal pain from ca, if patient appears to be in any discomfort will restart pain medication. (2) Pancreatic cancer: (3) Bilateral pulmonary embolism: (4) CHF (congestive heart failure): (5) Hypoxia: Supervising Physician Co-Signing Physician Notes Attending attestation Pt seen and examined in concert with Dr. Rodriguez. In agreement with the documented findings as noted in the resident documentation with any exceptions or additions as noted here. No expressed complaints and unobtainable history/ROS today. Family reports h/o severe abdominal pain requiring oxycontin q12h. Has not required/requested pain medication per chart, nor does she appear to be subjectively in pain w/ eating or activity per family and nursing. On examination, S1/S2 nl RRR no MCG. CTAB. Abd is apparently NT per patient response, BS+ve Neurologically, - sitting up in bed and responding intermittently to questions, normally w/ nodding yes/no. Does have some appropriate phrase use, including thank you and other similar platitudes. Speech appeared to turkey picker and be more frequent after a few minutes in room - intermittently following commands - following one of two fingers inconsistently, not holding position with UE/LE on command, minimal movement on command - ?partial right sided neglect - not really acknowledging people, things, testing from right side of bed in room at time of examination, looking actively to the left and discussing/responding there - remaining examination per resident documentation New onset seizure in the setting of CVA w/ ?metastatic disease of brain - neurology consultation appreciated - continue keppra, ASA - repeat MRI 48 hours post initial, PT/OT evaluation Accompanying expressive aphasia, ?receptive aphasia - S/S evaluation complete - rehab as tolerated, diet per recommendations h/o bilateral pulmonary embolism - continue enoxaparin Metastatic pancreatic Ca w/ chronic RUQ abdominal pain - no complaint of pain at present off pain medication per EHR. Monitor and restart should pain recur Else see resident documentation as noted. Subjective Ms Tequila Dela Cruz was extubated today and transferred to [facility] Shakes her head in response to questions does not respond appropriately does not follow commands. Tracks horizontal eye movements, Does occasionally produce comprehensive speech with statements including "Thank You for Everything". Daughter states that when they are alone she does appear more responsive than when doctors are present. She did pass swallow study for pureed and ate chocolate pudding today. Physical Exam 2 Vital Signs (Past 24 Hours): Last Vital Signs Temp 37.4 C 08/30/18 04:16 Pulse 90 08/30/18 11:01 Resp 20 08/30/18 11:01 BP 144/73 H 08/30/18 11:01 Pulse Ox 99 08/30/18 11:01 Physical Exam: Alert, extubated NIH stroke scale 20 Does not follow commands Heart lungs clear Abdomen soft non tender 2+ radial pulses Pupils equally round and reactive extraocular movements intact Rest of cranial nerves deferred due to lack of cooperation.
[2018-08-30] MEDS: HEPARIN 100 UNIT/ML 5ML FLUSH FLUSH SCH (20:01)
[2018-08-31] MEDS: HYDROCORTISONE SOD 50 MG in SYRINGE 0 ML IV SCH (05:17)
[2018-08-31 06:19] LABS: Creatinine Clr Calc Pharmacy 47.4 ml/min; Est GFR (African American) 68.2; Est GFR (Non-African American) 58.8
[2018-08-31 07:28] LABS: Hematocrit (blood only) 27.2 % (37-47); Hemoglobin 8.6 g/dL (12.0-16.0); Immature Granulocytes # (auto) 0.01 K/uL (0.00-0.02); Immature Granulocytes % (auto) 0.2 %; Lymphocytes # (auto) 0.78 K/uL (1.2-3.4); Lymphocytes % (auto) 14.7 %; Mean Corpuscular Hgb Conc 31.6 g/dL (32-36); Mean Corpuscular Volume 101.9 fL (80-100); Mean Platelet Volume 10.7 fL (7.4-10.4); Monocytes # (auto) 0.04 K/uL (0.11-0.59); Monocytes % (auto) 0.8 %; Neutrophils # (auto) 4.47 K/uL (1.4-6.5); Neutrophils % (auto) 84.3 %; Platelet Count 479 K/uL (130-400); RDW Coefficient of Variation 18.8 % (11.5-14.5); RDW Standard Deviation 66.4 fL (36.4-46.3); Red Blood Count 2.67 M/uL (4.2-5.4)
[2018-08-31 07:33] LABS: BUN Creatinine Ratio 23.6 (10-20); Creatinine Clr Calc Pharmacy 47.9 ml/min; Est GFR (African American) 69.1; Est GFR (Non-African American) 59.6; Potassium 3.5 mmol/L (3.5-5.1)
[2018-08-31 07:50] LABS: Anisocytosis Present; Poikilocytosis Present
[2018-08-31] MEDS: ASPIRIN 81 MG CHEW PO SCH (09:01)
[2018-08-31] MEDS: LACTATED RINGER'S 1,000 ML IV SCH ×2 (09:03→22:49)
[2018-08-31] MEDS: ENOXAPARIN 80 MG/0.8 ML SYR SQ SCH ×2 (09:05→21:29)
[2018-08-31] MEDS: levETIRAcetam 750 MG in DEXTROSE 5% 100 ML IV SCH ×2 (09:05→21:28)
--- NOTE | 2018-08-31 09:45 | Neurology Progress Note ---
Date of Service August 31, 2018 Assessment & Plan (1) Stroke: Persistent neurologic deficits following stroke. Patient continues to have some left-sided neglect, although improved compared with yesterday. Her brain MRI reveals an area of restricted diffusion within the right parietal lobe with some associated increased T2 signal. This finding may be consistent with a subacute infarct in this area and probably explains her left hemineglect. The acute left temporal lobe infarct is probably responsible for her receptive aphasia while the acute left occipital lobe infarct would explain her right visual field deficit. Deficits from the observed left thalamic infarct are a bit more difficult to determine, although this infarct may also contribute to her aphasia and could also result in some right-sided sensory dysfunction which cannot be readily determined in light of her receptive aphasia. A follow-up gadolinium-enhanced brain MRI should be completed today to further exclude metastatic disease and evaluate for any significant interval change that may assist with her imaging diagnosis. (2) Seizure: No further seizures. Patient should continue with Keppra 750 mg IV every 12 hours. This medication may be changed to tablets when patient is able to reliably swallow. Subjective Follow-up for seizures and stroke The patient has not had any further seizures and continues with Keppra 750 mg IV every 12 hours. She continues to exhibit a significant receptive aphasia but does appear to speak a bit more spontaneously this morning. Unfortunately, she is not really able to provide any meaningful information pertaining to symptoms and is only able to cooperate with examination to a very limited degree. Her daughter is at bedside who has noticed some improvement in her mother speech and movements in general over the past 24 hours. As described previously, her brain MRI completed on August 29 revealed several areas of restricted diffusion within the left occipital, parietal, and temporal lobes as well as the left thalamus potentially consistent with acute infarcts although seizure related restricted diffusion not excluded. Metastatic foci considered unlikely given lack of abnormal postcontrast enhancement. A short-term follow- up MRI was recommended. A review of systems cannot be obtained due to patient's significant receptive aphasia. Physical Exam 2 Vital Signs (Past 24 Hours): Last Vital Signs Temp 36.6 C 08/31/18 07:03 Pulse 82 08/31/18 07:03 Resp 25 H 08/31/18 07:03 BP 178/79 H 08/31/18 07:03 Pulse Ox 97 08/31/18 07:03 Physical Exam: The patient is awake and alert although she is unable to state her name due to a severe receptive aphasia. Orientation cannot be assessed. She does speak spontaneously but uses words that did not make sense. She did appropriately use the phrase "thank you" at the conclusion of my assessment. She is unable to name objects or repeat phrases. She does not blink is readily to threat to her right visual field and may have a field cut in this area. Eye movements are intact. Facial expression is grossly intact. Tongue and palate are midline. The patient prefers to look and lean to the right side and appears to have a persistent element of left hemineglect although a bit less prominent compared to yesterday. Deep tendon reflexes are grossly intact and symmetrical. Plantar responses withdrawal bilaterally. The patient does move all 4 limbs a bit more spontaneously than she did yesterday as well although she tends to neglect the left upper limb.
[2018-08-31] MEDS ORDERED: MoRPHine SULFATE 4 MG/ML 1 ML CARP\\VIAL IV STA (16:09)
[2018-08-31] MEDS ORDERED: MoRPHine SULFATE 4 MG/ML 1 ML CARP\\VIAL ONE (16:33)
[2018-08-31] MEDS ORDERED: GADOBUTROL 65ML VIAL IV PRN (17:40)
--- NOTE | 2018-08-31 17:57 | Family Medicine Progress Note ---
Date of Service August 31, 2018 Assessment & Plan (1) Stroke: New CVA in setting of malignancy with possible brain mets. Continuing Keppra 750 mg for seizure prophylaxis ASA 81 Follow up gadalinium MRI results pending PT/OT as tolerated Continue to monitor progress Daughter's wishes appear to be to pursue SNF on d/c Bilateral pulmonary embolism Continuing lovenox 70 mg sub q No change to breathing Metastatic pancreatic cancer Up to date with her chemo treatments Doesn't appear to be in any pain currently (2) Pancreatic cancer: (3) Bilateral pulmonary embolism: (4) CHF (congestive heart failure): (5) Hypoxia: Supervising Physician Co-Signing Physician Notes Attending attestation Pt seen and examined in concert with Dr. Rodriguez. In agreement with the documented findings as noted in the resident documentation with any exceptions or additions as noted here. Pt sitting at bedside engaging with family. Limited word use which is generally inappropriate for context, so no available ROS or complaints. Per family, no grimacing or complaints of pain at present. Reaching and grabbing without evident purpose, easily redirected but consistently trying to get up out of bed. On examination, S1/S2 nl no MCG. CTAB. Abd NT/ND BS+ve. PERRLA with slugging right pupil but unable to follow instructions for remaining CN examination. Does transition with moderate+ support to bedside commode. New onset seizure in the setting of CVA w/ ?metastatic disease of brain - neurology consultation appreciated - continue keppra, ASA - Repeat MRI today. PT /OT consultation and evaluations. Expressive aphasia, ?receptive aphasia, delirium - S/S evaluation complete - diet per recommendations, 1:1 for reorientation h/o bilateral pulmonary embolism - continue enoxaparin HTN - generally within acceptable parameters - PRN for excessive HTN. Holding home indapamide Metastatic pancreatic Ca w/ chronic RUQ abdominal pain - no complaint of pain, trial of morphine 4mg and re-evaluate mental state, consider fixed medication regimen but without subjective or objective signs of pain, would avoid 2/2 ZAYDA without S/Sx of pain. Subjective Ms Dela Cruz is still battling receptive and expressive aphasia. Patient does not appear to be in any pain at the moment, no grimacing on exam despite chronic abdominal pain. Her speech is clear, but she is unable to follow any command or instructions. She has been trying to get up to walk, per nursing will need 1 to 1 overnight. Review of Systems impossible to obtain due to patient's mental status. Physical Exam 2 Vital Signs (Past 24 Hours): Last Vital Signs Temp 36.8 C 08/31/18 11:46 Pulse 87 08/31/18 11:46 Resp 24 08/31/18 11:46 BP 159/80 H 08/31/18 11:46 Pulse Ox 98 08/31/18 11:46 Constitutional: + frail appearing; no acute distress Eyes: PERRL; no conjunctival abnormality and no scleral abnormality Respiratory: symmetric chest movement Auscultation: lungs clear to auscultation bilaterally; no diminished lung sounds, no crackles, no rales, no rhonchi and no wheezes Cardiovascular: Rate/Rhythm: regular rate and regular rhythm
--- NOTE | 2018-08-31 17:58 | Magnetic Resonance Report ---
MR brain wo/w con CLINICAL HISTORY: stroke mental status change COMPARISON STUDY: No previous studies for comparison. TECHNIQUE: Utilizing a 1.5 Ashely magnet and dedicated coil, multiplanar, multiecho imaging of the br ain was performed pre and postcontrast administration. IV administration of 8 mL of Gadavist contras t was uneventful. FINDINGS: Similar study overall. Findings consistent with acute/subacute infarction left middle cereb ral arterial distribution. Several small periventricular subacute infarcts are also noted. All appear generally similar compared to the prior study in terms of distribution and extent. There is no evidence for new or interval finding compared to the prior study. Postcontrast images are considered negative for significant postcontrast enhancement. Possibly metast atic disease considered unlikely given this appearance. IMPRESSION: 1. No major change overall compared to the prior study. 2. Subacute infarcts of the left middle cerebral arterial distribution with several unchanging perive ntricular infarct. 3. Stable age-related atrophy and chronic small vessel change. 4. No abnormal postcontrast enhancement or evidence for metastatic disease based on this study. The above report was generated using voice recognition software. It may contain grammatical, syntax or spelling errors. Electronically signed by: Yusuf Quevedo M.D. 08/31/2018 5:57 PM
[2018-08-31] MEDS: HEPARIN 100 UNIT/ML 5ML FLUSH FLUSH SCH (21:28)
[2018-09-01] MEDS: LACTATED RINGER'S 1,000 ML IV SCH ×3 (00:08→22:29)
[2018-09-01 06:45] LABS: Creatinine Clr Calc Pharmacy 55.7 ml/min; Est GFR (Non-African American) 64.7
[2018-09-01] MEDS: levETIRAcetam 750 MG in DEXTROSE 5% 100 ML IV SCH (07:56)
[2018-09-01] MEDS: ENOXAPARIN 80 MG/0.8 ML SYR SQ SCH ×2 (08:03→22:27)
[2018-09-01] MEDS: ASPIRIN 81 MG CHEW PO SCH (10:03)
--- NOTE | 2018-09-01 10:12 | Neurology Progress Note ---
Date of Service September 01, 2018 Assessment & Plan (1) Stroke: Multiple left MCA territory infarcts, probably cardioembolic. Thromboembolism in the context of pancreatic cancer and history of pulmonary embolism would be a potential etiology, although patient had been on Lovenox. Marantic endocarditis has also been suggested as a potential diagnostic consideration and has been known to occur in individuals with pancreatic cancer. However, no vegetations were observed on this patient's transthoracic echocardiogram. Pursuing a transesophageal echocardiogram is probably not necessary in this patient's case as she would need to hold her Lovenox and the test results would not impact her management. Lovenox and daily aspirin should be continued. (2) Seizure: It is unclear if this morning's event as observed by her daughter was truly a focal seizure or not. However, as this patient's renal function appears to have improved, I would recommend increasing her dosage of Keppra to 1000 mg IV every 12 hours. Subjective Follow-up for stroke and seizures The patient completed another follow-up brain MRI yesterday. I reviewed the images as well as the radiologist interpretation of this test. No significant change from the prior study. No abnormal postcontrast enhancement. No compelling evidence for metastatic disease. Study appears most consistent with subacute infarct within the left MCA territory. Results discussed with patient' s daughter who is at bedside this morning. The patient continues to exhibit a significant receptive aphasia and seems a bit less interactive this morning and speaks much less spontaneously than she did yesterday. Her daughter reports to me that she observed a brief episode of what appeared to be involuntary shaking of the right arm earlier this morning with perhaps some associated alteration in level of alertness and awareness. She does not recall observing any head or eye deviation or abnormal movement of the other limbs. It is not really clear if the episode was a seizure and does not appear to be documented in the nursing record. As above, the patient is unable to provide any details pertaining to symptoms or a review of systems due to her significant receptive aphasia. Physical Exam 2 Vital Signs (Past 24 Hours): Last Vital Signs Temp 36.8 C 09/01/18 07:13 Pulse 85 09/01/18 07:13 Resp 24 09/01/18 07:13 BP 146/72 H 09/01/18 07:13 Pulse Ox 96 09/01/18 07:13 Physical Exam: The patient is alert. Attention seems somewhat reduced compared with yesterday morning. Orientation cannot be assessed due to her significant receptive aphasia. She does not speak spontaneously or follow commands. Pupils equal round reactive to light. Eye movements intact. There is no gaze preference. There is no gross facial droop. Tongue and palate are midline. The patient does not appear to exhibit as much left hemineglect as she had previously. The patient will spontaneously grab at the bed sheets with both hands but motor function cannot be fully assessed due to poor patient comprehension and cooperation. Results & Data Laboratory Results Patient's estimated creatinine clearance is 55.7 today
--- NOTE | 2018-09-01 13:15 | CT Scan Report ---
CT head/brain wo con CT DOSE: 614.27 mGy.cm HISTORY: Mental status change new deficits rule out hemorrhage TECHNIQUE: Multiaxial CT images of the head were performed without the use of intravenous contrast. A dose lowering technique was utilized adhering to the principles of ALARA. Comparison: 08/28/2018 Findings: The paranasal sinuses and mastoid air cells are clear. No evidence for acute intracranial h emorrhage. The low density findings within the left parietal-occipital region are perhaps slightly in creased. Periventricular chronic small vessel changes are unaltered. Jugular system remains midline. Impression: 1. No evidence for acute intracranial hemorrhage. 2. Hypodensity of the left parietal occipital region slightly increased in prominence which may indic ate slight extension of pre-existing infarction. The above report was generated using voice recognition software. It may contain grammatical, syntax or spelling errors. Electronically signed by: Yusuf Quevedo M.D. 09/01/2018 1:14 PM
--- NOTE | 2018-09-01 13:32 | XRay Report ---
XR chest 1V portable CLINICAL HISTORY: Increased work of breathing dyspnea COMPARISON STUDY: 08/28/2018 FINDINGS: Interval extubation. Central catheter remains in superior vena cava. Mild increase in cardi ac size. Mild increase in fullness the pulmonary vasculature. Trace pleural effusion right and to les ser extent left base. IMPRESSION: Developing components of congestive heart failure. The above report was generated using voice recognition software. It may contain grammatical, syntax or spelling errors. Electronically signed by: Yusuf Quevedo M.D. 09/01/2018 1:31 PM
--- NOTE | 2018-09-01 15:47 | Family Medicine Progress Note ---
Date of Service September 01, 2018 Assessment & Plan (1) Stroke: Ms Tequila Dela Cruz is an 82 year old woman witha new CVA in setting of malignancy with possible brain mets. CVA Continuing Keppra 1000 mg for seizure prophylaxis ASA [address] today after increased symptoms show a possible slight increase in stroke area PT/OT as tolerated Continue to monitor progress Bilateral pulmonary embolism Continuing lovenox 70 mg sub q Metastatic pancreatic cancer Up to date with her chemo treatments Doesn't appear to be in any pain currently Morphine 2mg prn Patient's family wish to keep patient at full code. Discussions are dynamic (2) Pancreatic cancer: (3) Bilateral pulmonary embolism: (4) CHF (congestive heart failure): (5) Hypoxia: Supervising Physician Co-Signing Physician Notes ATTENDING NOTE I examined the patient with the resident physician and confirmed vásquez portions of the history and exam. I agree with the documented impression and plan. I also had an extended conversation with the patient's and daughter regarding goals of care in light of her overall decline today. Specifically, we discussed palliative/comfort care as well as the Medicare hospice benefit. We also discuss the patient's code status - it sounds as if the has had conversations with his before regarding this - and she would not want to be on a ventilator - although he is not ready to support this step at this time. He and his daughter will discuss this afternoon. For the time being - 1) Increase keppra dose as suggested by neurology. 2) Re-insert naidu (prompt return of 600 cc) 3) Lasix 20 mg IV x 1 and monitor UO - CXR suggestive early pulmonary edema 4) Ativan and morphine PRN 5) Continue discussions regarding code status and overall goals of care Subjective Ms Dela Cruz has had some interval changes. She appears to have more of a left sided facial droop and her expressiveness, speech and swallowing has been notably decreased. Patient has required suctioning for her secretions as she is not swallowing. Patient does not appear to be in any pain at the moment, no grimacing on exam despite chronic abdominal pain. Review of Systems impossible to obtain due to patient's mental status. Physical Exam 2 Vital Signs (Past 24 Hours): Last Vital Signs Temp 36.5 C 09/01/18 10:50 Pulse 77 09/01/18 10:50 Resp 16 09/01/18 10:50 BP 171/81 H 09/01/18 10:50 Pulse Ox 98 09/01/18 10:50 Constitutional: + frail appearing; no acute distress Eyes: PERRL; no conjunctival abnormality and no scleral abnormality Respiratory: symmetric chest movement Auscultation: lungs clear to auscultation bilaterally; no diminished lung sounds, no crackles, no rales, no rhonchi and no wheezes Cardiovascular: Rate/Rhythm: regular rate and regular rhythm Neurologic: + abnormal touch/pain/proprioception and + CN's not intact ( Unable to fully assess) Speech / Cognition: + abnormal speech, + expressive aphasia and + receptive aphasia
[2018-09-01] MEDS ORDERED: FUROSEMIDE 20 MG in SYRINGE 0 ML IV ONE (16:00)
[2018-09-01] MEDS: HEPARIN 100 UNIT/ML 5ML FLUSH FLUSH SCH (19:15)
[2018-09-02] MEDS: MoRPHine SULFATE 2 MG/ML CARP IV PRN ×3 (02:03→11:34)
--- NOTE | 2018-09-02 06:55 | Family Medicine Progress Note ---
Date of Service September 02, 2018 Assessment & Plan (1) Stroke: Ms Tequila Dela Cruz is an 82 year old woman with a new CVA in setting of malignancy with possible brain mets. Pt is DNR as of 09/01/2018 and is now comfort care. Transfered to a private med/surg room and dc'd non essential meds. Goals of care were discussed patient is to be made comfortable CVA Continuing Keppra 1500 mg for seizure prophylaxis per neuro recs Head CT on 09/01 after increased symptoms show a possible slight increase in stroke area PT/OT as tolerated Continue to monitor progress Dc'd ASA Comfort care NOW Bilateral pulmonary embolism Dc'd lovenox as is now comfort care Metastatic pancreatic cancer Pt is comfort Care Initiated Morphine Drip starting 0.5 increase by 0.5 titrate q60 min max 10mg DNR FENA: DVT PPX: comfort [facility]po [facility] (2) Pancreatic cancer: (3) Bilateral pulmonary embolism: (4) CHF (congestive heart failure): (5) Hypoxia: Subjective Patient was laying in bed non verbal this morning. She does respond to stimulation and sound. Pt was had a rhythmic breathing pattern with associated right head turning with tongue flicking presumed seizure activity. Had a long conversation with the family discussing goals of care. They elected to pursue comfort care and see what happens over the next couple of days. The pt daughter is a physician as well and has a good grasp of what is going on. The patients is coming around to understanding his 's condition and I think his daughter is guiding him through this process. We provided extensive reassurance and will continue to monitor the situation. Transferred the patient to med surg private bed Physical Exam 2 Vital Signs (Past 24 Hours): Last Vital Signs Temp 36.4 C L 09/02/18 03:54 Pulse 80 09/02/18 03:54 Resp 18 09/02/18 03:54 BP 155/74 H 09/02/18 03:54 Pulse Ox 93 09/02/18 03:54 Constitutional: + frail appearing; no acute distress Eyes: PERRL; no conjunctival abnormality and no scleral abnormality Respiratory: symmetric chest movement Auscultation: lungs clear to auscultation bilaterally; no diminished lung sounds, no crackles, no rales, no rhonchi and no wheezes Cardiovascular: Rate/Rhythm: regular rate and regular rhythm Neurologic: + abnormal touch/pain/proprioception and + CN's not intact ( Unable to fully assess) Speech / Cognition: + abnormal speech, + expressive aphasia and + receptive aphasia Results & Data Laboratory Results 09/01/18 09/01/18 Range/Units 12:38 12:38 Phosphorus 2.2 L (2.5-4.9) mg/dl Levetiracetam Pending Medications Administered Current Inpatient Medications Aspirin (Aspirin) 81 mg PO DAILY [facility] Stop: 09/29/18 12:59 Last Admin: 09/01/18 10:03 Dose: 81 mg Enoxaparin Sodium (Lovenox) 70 mg SQ Q12H [facility]SS[facility] Stop: 09/28/18 20:59 Last Admin: 09/01/18 22:27 Dose: 70 mg Gadobutrol (Gadavist 30ml) 7 ml IV ONCE PRN PRN Reason: Interaction Checking Stop: 09/02/18 11:32 Last Admin: 08/29/18 11:33 Dose: 7 ml Gadobutrol (Gadavist 65ml) 7 ml IV ONCE PRN PRN Reason: Interaction Checking Stop: 09/04/18 17:39 Last Admin: 08/31/18 17:40 Dose: 7 ml Heparin Sodium (Porcine) (Heparin Sod 100 Unit/Ml Flush) 5 ml FLUSH PRN [facility] Stop: 09/29/18 19:14 Last Admin: 09/01/18 19:15 Dose: 5 ml Lactated Ringer's (Lr) 1,000 mls @ 80 mls/hr IV .[id number] [facility] Stop: 09/28/18 14:29 Last Admin: 09/01/18 22:29 Dose: 80 mls/hr Levetiracetam 1,000 mg/ (Dextrose) 110 mls @ 440 mls/hr IV Q12H [facility] Stop: 10/01/18 20:59 Last Infusion: 09/01/18 23:00 Dose: Infused Metronidazole (Metrogel Vag) 1 appln PV UD PRN PRN Reason: DIRECTED Stop: 09/08/18 02:15 Morphine Sulfate (Morphine Sulfate) 2 mg IV Q4H PRN PRN Reason: Pain Stop: 09/15/18 19:32 Last Admin: 09/02/18 02:03 Dose: 2 mg Resident Activity Tracking Resident Involvement: Resident Care Provided Care Provided: Adult [facility] Medicine
[2018-09-02] MEDS: ASPIRIN 81 MG CHEW PO SCH (08:05)
--- NOTE | 2018-09-02 10:28 | Neurology Progress Note ---
Date of Service September 02, 2018 Assessment & Plan (1) Seizure: Possible increase in seizure activity recently. Would increase patient's dosage of Keppra to 1500 mg IV every 12 hours. (2) Stroke: Progression in left hemispheric stroke identified on recent CT of the head. Progressive neurologic deficits. Prognosis poor. Agree with DNR status. Discussed with daughter at bedside. Subjective Follow-up for stroke and seizures The patient's neurological status continues to decline. She has been exhibiting further decline in attention and has become less interactive. She has been observed to have intermittent shaking of the limbs, a tendency to look to the right, intermittent involuntary tongue movements, as well as an episode of left facial weakness yesterday. A CT of the head completed yesterday was negative for hemorrhage although did suggest extension of the left occipital infarct. I reviewed the images as well as the radiologist interpretation of this test. Her dosage of Keppra has been increased to 1000 mg IV every 12 hours and she was given an extra 500 mg IV x1 yesterday afternoon. In light of her continued decline, however, the patient is currently DNR. A review of systems cannot be obtained from the patient given her significant alteration in mental status. Physical Exam 2 Vital Signs (Past 24 Hours): Last Vital Signs Temp 36.4 C L 09/02/18 07:00 Pulse 76 09/02/18 07:00 Resp 18 09/02/18 07:00 BP 150/78 H 09/02/18 07:00 Pulse Ox 95 09/02/18 07:00 Physical Exam: The patient is obtunded. She does not answer questions or follow commands. She has a tendency to look to the right. Pupils are equal round and reactive to light. I did not appreciate a significant facial droop at this time. She tends to hold the right upper extremity in a somewhat flexed posture with associated increased muscle tone. He tends to hold the right leg in an extended fashion, also with increased tone. She exhibits mild intermittent involuntary movements of the tongue. She does not display any obvious tonic-clonic movements of the limbs.
[2018-09-02] MEDS: LACTATED RINGER'S 1,000 ML IV SCH (11:34)
[2018-09-02] MEDS: ENOXAPARIN 80 MG/0.8 ML SYR SQ SCH (11:54)
[2018-09-02] MEDS ORDERED: MoRPHine SULF/NSS 250 MG/250 ML BTL IV SCH (12:15)
[2018-09-02] MEDS ORDERED: SCOPOLAMINE 1.5 MG TDSY TD SCH (13:30)
[2018-09-02] MEDS: CHECK SCOPOLAMINE PATCH PLACEMENT SCH ×2 (16:37→23:35)
[2018-09-02] MEDS: HEPARIN 100 UNIT/ML 5ML FLUSH FLUSH SCH (19:35)
[2018-09-02] MEDS: levETIRAcetam 1,500 MG in DEXTROSE 5% 100 ML IV SCH (21:13)
[2018-09-03] MEDS: ATROPINE SULFATE 1% OP SOLN 2 ML BTL SL PRN ×4 (01:26→21:16)
[2018-09-03] MEDS ORDERED: HEPARIN 100 UNIT/ML 5ML FLUSH FLUSH PRN (02:57)
[2018-09-03 06:06] LABS: Hematocrit (blood only) 28.1 % (37-47); Hemoglobin 8.9 g/dL (12.0-16.0); Mean Corpuscular Hgb Conc 31.7 g/dL (32-36); Mean Corpuscular Volume 101.8 fL (80-100); Mean Platelet Volume 10.3 fL (7.4-10.4); Nucleated RBC # (auto) 0.09 K/uL (0-0); Nucleated RBC % (auto) 1.2 %; Platelet Count 401 K/uL (130-400); RDW Coefficient of Variation 18.8 % (11.5-14.5); RDW Standard Deviation 65.9 fL (36.4-46.3); Red Blood Count 2.76 M/uL (4.2-5.4); White Blood Count 7.21 K/uL (4.8-10.8)
[2018-09-03 06:42] LABS: Creatinine Clr Calc Pharmacy 56.1 ml/min; Est GFR (African American) 76.1; Est GFR (Non-African American) 65.6
[2018-09-03] MEDS: CHECK SCOPOLAMINE PATCH PLACEMENT SCH ×2 (07:22→16:26)
[2018-09-03] MEDS: LORazepam 1 MG/2 ML VIAL IV PRN ×2 (07:48→16:27)
[2018-09-03] MEDS: levETIRAcetam 1,500 MG in DEXTROSE 5% 100 ML IV SCH ×2 (10:20→22:00)
--- NOTE | 2018-09-03 11:09 | Family Medicine Progress Note ---
Date of Service September 03, 2018 Assessment & Plan (1) Stroke: Ms Tequila Dela Cruz is an 82 year old woman with a new CVA in setting of malignancy with possible brain mets. Pt is DNR as of 09/01/2018 and is now comfort care. Transfered to a private med/surg room and dc'd non essential meds. Goals of care were discussed patient is to be made comfortable, if it seems like she will remain in her current state for a prolonged period will arrange for home hospice. Stopped all Labs CVA Continuing Keppra 1500 mg for seizure prophylaxis per neuro recs Head CT on 09/01 after increased symptoms show a possible slight increase in stroke area Continue to monitor progress Dc'd ASA Comfort care NOW Bilateral pulmonary embolism Dc'd lovenox as is now comfort care Metastatic pancreatic cancer Pt is comfort Care Initiated Morphine Drip now 2 increase by 0.5 titrate q60 min max 10mg DNR FENA: DVT PPX: comfort [facility]po : [facility] (2) Pancreatic cancer: (3) Bilateral pulmonary embolism: (4) CHF (congestive heart failure): (5) Hypoxia: Subjective Patient was laying in bed this morning with her and Daughter surrounding her breathing heavily in a Felix-Hogan type respiration pattern. She is still no verbal this morning and appears to be clinically deteriorating although lab values suggest otherwise, still making good urine. We had another lengthy discussion with the family regarding goals of care and how to proceed. The plan for the next 24 hours is to stay the course and reassess, if the patient appears to be stable will attempt a transfer to home hospice. Physical Exam 2 Vital Signs (Past 24 Hours): Last Vital Signs Temp 36.9 C 09/02/18 11:10 Pulse 82 09/02/18 11:10 Resp 16 09/02/18 11:10 BP 149/87 H 09/02/18 11:10 Pulse Ox 95 09/02/18 11:10 Constitutional: + acute distress and + frail appearing Eyes: no conjunctival abnormality, no scleral abnormality and + no PERRL Respiratory: symmetric chest movement Auscultation: + diminished lung sounds and + crackles; + lungs not clear to auscultation, no rales, no rhonchi and no wheezes Cardiovascular: Rate/Rhythm: regular rate and regular rhythm Neurologic: + abnormal touch/pain/proprioception and + CN's not intact ( Unable to fully assess) Unresponsive Results & Data Laboratory Results 09/03/18 09/03/18 Range/Units 05:38 05:38 WBC 7.21 (4.8-10.8) K/uL RBC 2.76 L (4.2-5.4) M/uL Hgb 8.9 L (12.0-16.0) g/dL Hct 28.1 L (37-47) % MCV 101.8 H (80-100) fL MCH 32.2 (25-34) pg MCHC 31.7 L (32-36) g/dL RDW Std Deviation 65.9 H (36.4-46.3) fL RDW Coeff of Rosario 18.8 H (11.5-14.5) % Plt Count 401 H (130-400) K/uL MPV 10.3 (7.4-10.4) fL Absolute Nucleated RBC 0.09 H (0-0) K/uL Nucleated RBC % (auto) 1.2 % Creatinine 0.84 (0.6-1.2) mg/dl Est Cr Clr Drug Dosing 56.1 ml/min Est GFR ( Amer) 76.1 Est GFR (Non-Af Amer) 65.6 Medications Administered Current Inpatient Medications Atropine Sulfate (Atropine Sulfate 1% Oph Soln) 4 drops SL Q2H PRN PRN Reason: secretions Stop: 10/03/18 00:44 Last Admin: 09/03/18 07:21 Dose: 4 drops Heparin Sodium (Porcine) (Heparin Sod 100 Unit/Ml Flush) 5 ml FLUSH PRN PRN PRN Reason: Flush Stop: 09/29/18 19:14 Levetiracetam 1,500 mg/ (Dextrose) 115 mls @ 440 mls/hr IV Q12H [facility]; Protocol Stop: 10/02/18 21:59 Last Infusion: 09/03/18 10:53 Dose: Infused Morphine Sulfate (Morphine Sulf/Nss) 250 mg in 250 mls @ 0 mls/hr IV .Q0M [facility]SSES; Protocol Stop: 09/16/18 12:14 Last Titration: 09/03/18 08:21 Dose: 2 mg/hr, 2 mls/hr Lorazepam (Ativan) 1 mg in 2 mls @ 2 mls/min IV Q2H PRN PRN Reason: Agitation Stop: 10/02/18 12:14 Last Admin: 09/03/18 07:48 Dose: 2 mls/min Miscellaneous (Remove Transderm-Scop Patch) 1 ea N/A Q72H [facility] Stop: 10/05/18 13:28 Miscellaneous (Check Scopolamine Patch Placement) 1 ea N/A QS [facility] Stop: 10/02/18 15:59 Last Admin: 09/03/18 07:22 Dose: 1 ea Scopolamine (Transderm-Scop) 1.5 mg TD Q72H [facility] Stop: 10/02/18 13:29 Last Admin: 09/02/18 13:59 Dose: 1.5 mg Resident Activity Tracking Resident Involvement: Resident Care Provided Care Provided: Adult Hospital Medicine
[2018-09-04] MEDS: CHECK SCOPOLAMINE PATCH PLACEMENT SCH ×3 (00:06→15:38)
[2018-09-04] MEDS: LORazepam 1 MG/2 ML VIAL IV PRN ×3 (05:30→09:09)
[2018-09-04] MEDS: ATROPINE SULFATE 1% OP SOLN 2 ML BTL SL PRN ×2 (07:20→09:31)
[2018-09-04] MEDS ORDERED: MoRPHine SULFATE 2 MG/ML CARP ONE (09:27)
[2018-09-04] MEDS: levETIRAcetam 1,500 MG in DEXTROSE 5% 100 ML IV SCH ×2 (09:31→09:34)
[2018-09-04] MEDS ORDERED: Nursing to Pharmacy Communication ONE (10:03)
[2018-09-04] MEDS ORDERED: ATROPINE SULFATE 1% OP SOLN 2 ML BTL SL PRN (10:04)
[2018-09-04] MEDS ORDERED: MoRPHine SULFATE 2 MG/ML CARP IV STA ×2 (10:05→10:06)
[2018-09-04] MEDS ORDERED: LORazepam 1 MG/2 ML VIAL IV PRN (10:06)
[2018-09-04] MEDS ORDERED: MoRPHine SULF/NSS 250 MG/250 ML BTL IV SCH (10:16)
[2018-09-04] MEDS: MoRPHine SULFATE 2 MG/ML CARP IV PRN ×2 (10:20→11:56)
[2018-09-04] MEDS: ATROPINE SULFATE 1% OP SOLN 2 ML BTL SL SCH ×3 (10:23→14:37)
--- NOTE | 2018-09-04 13:11 | Palliative Care Consultation ---
Date of Consultation September 04, 2018 Assessment & Plan (1) Comfort measures only status: -82 year old female with PMH pancreatic cancer diagnosed in December 2017, CHF , BL PE, htn, osteoporosis, and others, presented with new seizure activity, fever and unresponsiveness requiring intubation. A CT of the head was negative for hemorrhage or acute process. A follow-up noncontrast brain MRI on 08/28 was completed as well which revealed several areas of faint restricted diffusion involving the cortices of the left parietal and occipital lobes as well as the left thalamus. Another MRI of the brain was done on 08/29 showed subacute infarcts of the left middle cerebral arterial distribution with several unchanging periventricular infarct. Patient's multiple CVAs were evolving, condition continued to worsen and deteriorate. Patient continued to have increased seizure activity despite the initiation of IV Keppra. Decision was made by patient and family to transition to comfort measures only. She was started on continuous morphine infusion and sent to fourth floor. Palliative care consulted. -Met with patient, her Elbert, and daughter Kell Hernandes, at length this morning. Upon entering room, patient was tachypnic, tachycardic, and moaning. The moaning was more rhythmic rather than in response to any sort of stimuli. Her face was relaxed. Felix-gordon breathing. On morphine infusion at 4.5mg/ hr. While I was in room, gave three morphine boluses for a total of 6mg in addition to the morphine infusion to treat potential pain and discomfort as manifested by the heart rate and breathing. Sat with patient and family for over two hours. -Morphine gtt titration orders: increase by 1mg/hr Q15min as needed for signs of pain/SOB/air hunger. Can give morphine 2mg IV bolus Q1h PRN pain/SOB/air hunger. -Lorazepam 1mg IV Q1h PRN agitation or seizure activity. -Atropine 1% oph soln 4 drops SL Q1h PRN secretions. -Discontinue IV Keppra. (2) Stroke: (3) Respiratory failure: Chronicity: acute Respiratory failure complication: unspecified whether with hypoxia or hypercapnia Qualified Code(s): J96.00 - Acute respiratory failure, unspecified whether with hypoxia or hypercapnia (4) Seizure: (5) Sepsis: Sepsis type: sepsis due to unspecified organism Qualified Code(s) : A41.9 - Sepsis, unspecified organism (6) Pancreatic cancer: Supervising Physician Co-Signing Physician Notes Patient seen and examined, patient's and daughter at bedside. Patient appears comfortable, no facial grimace, patient with expiratory moan. No increased motor facial grimace with passive range of motion of upper extremities PE : No acute distress Respiratory: Unlabored CV: Regular rate Extremities: Hands cool to touch, toes dusky, early mottling. Neuro: Patient unresponsive to voice or touch Discussed with patient's daughter and -expiratory moan versus pain. Family feels patient is comfortable. Discussed end-of-life issues at length with family at bedside. Agree with above note, assessment and plan as per DORA Little P-we will continue to provide emotional support to patient's and daughter. History of Present Illness Reason for Consultation: Comfort measures Requesting Physician: Dr. Rodriguez Attending Physician: Sung Forbes DO History of Present Illness This 82 year old female with PMH pancreatic cancer diagnosed in December 2017, CHF, BL PE, htn, osteoporosis, and others, presented with new seizure activity, fever and unresponsiveness requiring intubation. A CT of the head was negative for hemorrhage or acute process. A follow-up noncontrast brain MRI on 08/28 was completed as well which revealed several areas of faint restricted diffusion involving the cortices of the left parietal and occipital lobes as well as the left thalamus. Another MRI of the brain was done on 08/29 showed subacute infarcts of the left middle cerebral arterial distribution with several unchanging periventricular infarct. Patient's multiple CVAs were evolving, condition continued to worsen and deteriorate. Patient continued to have increased seizure activity despite the initiation of IV Keppra. Decision was made by patient and family to transition to comfort measures only. She was started on continuous morphine infusion and sent to fourth floor. Palliative care consulted. See A&P for details. Thank you kindly for consulting us on this antwon patient and her family. Allergies Allergy/AdvReac Type Severity Reaction Status Date / Time No Known Allergies Allergy Unknown Verified 08/28/18 23:03 Home Medications Home Medications Medication Instructions Recorded Confirmed Type diclofenac sodium [Voltaren] 1 applic TOPICAL PRN UD PRN #0 01/07/18 08/28/18 History fluticasone [Flonase Allergy 2 spry MICHAEL QAM #0 01/07/18 08/28/18 History Relief] indapamide 1.25 mg PO QAM #0 tab 01/07/18 08/28/18 History metronidazole [Metrogel Vaginal] 1 applic TOPICAL PRN UD #0 01/07/18 08/28/18 History tramadol 50 - 100 mg PO Q4 PRN #0 tab 01/07/18 08/28/18 History oxycodone [OxyContin] 20 mg PO BID 30 Days #60 tab 02/14/18 08/28/18 History prochlorperazine maleate 10 mg PO Q6 PRN #0 02/14/18 08/28/18 History [Compazine] granisetron HCl 1 tab PO Q12 #0 04/24/18 08/28/18 History prednisone 10 mg PO DAILY #0 tab 04/24/18 08/28/18 History docusate sodium 100 mg PO BID 04/28/18 08/28/18 History ibuprofen 600 mg PO Q6H PRN 04/28/18 08/28/18 History enoxaparin [Lovenox] 70 mg SUBCUT Q12H #30 ml 04/29/18 08/28/18 Rx fluticasone 2 spry MICHAEL QAM #1 g 04/29/18 08/28/18 Rx magnesium oxide 400 mg PO BID #7 tab 04/29/18 08/28/18 Rx Patient History Medical History HTN (hypertension) (Acute) Osteoporosis (Acute) Osteopenia (Acute) Pancreatic cancer Bilateral pulmonary embolism (Acute) CHF (congestive heart failure) (Acute) Hypoxia (Acute) SOB (shortness of breath) Social History marital status: Current Living Situation: Spouse Smoking Status: Unknown if ever smoked Communication Ability: intubated Physical Exam 2 Vital Signs (Past 24 Hours): Last Vital Signs Temp 36.9 C 09/02/18 11:10 Pulse 82 09/02/18 11:10 Resp 16 09/02/18 11:10 BP 149/87 H 09/02/18 11:10 Pulse Ox 95 09/02/18 11:10 Constitutional: + ill appearing Eyes: PERRL, conjunctivae normal, anicteric sclerae Neck: normal visual inspection and trachea midline Respiratory: + tachypneic Auscultation: + rhonchi tracheal secretions noted Cardiovascular: Rate/Rhythm: regular rhythm and + tachycardic Heart Sounds : no murmur Vessels: + JVD (mild) Extremities: + edema (BL hands and feet ) Gastrointestinal (Abdomen): Inspection/Auscultation: abdomen normal to inspection and normal bowel sounds; abdomen not distended Percussion/ Palpation: abdomen soft Skin: no rashes, warm and dry Neurologic: + obtunded Time Spent Midlevel 150 minutes with >50% of time spent at bedside with patient and family discussing comfort measures, symptom management, EOL issues.
--- NOTE | 2018-09-04 14:12 | Family Medicine Progress Note ---
Date of Service September 04, 2018 Assessment & Plan (1) Comfort measures only status: Ms Dela Cruz is a 82 year old woman here for large left sided ischemic stroke in the setting of stage IV pancreatic cancer Comfort Care Only Ms Dela Cruz appears to be comfortable at this time. Atropine and Scopolamine patches seem to be helping control secretions compared to last exam. Family appear to be content with decision and understanding of situation Will continue to monitor (2) Stroke: (3) Respiratory failure: (4) Altered mental status: (5) Pancreatic cancer: Subjective Patient resting in bed this morning. No family at bedside yet. She appears comfortable and is sleeping. Review of Systems Unobtainable due to reduced consciousness Physical Exam 2 Vital Signs (Past 24 Hours): Last Vital Signs Temp 36.9 C 09/02/18 11:10 Pulse 82 09/02/18 11:10 Resp 16 09/02/18 11:10 BP 149/87 H 09/02/18 11:10 Pulse Ox 95 09/02/18 11:10 Constitutional: + frail appearing; no acute distress Eyes: PERRL; no conjunctival abnormality and no scleral abnormality Respiratory: + labored breathing, + abnormal respiratory pattern and symmetric chest movement Auscultation: + crackles and + rales; no diminished lung sounds, no rhonchi and no wheezes Cardiovascular: Rate/Rhythm: regular rate and regular rhythm Neurologic: + abnormal touch/pain/proprioception and + CN's not intact ( Unable to fully assess) Speech / Cognition: + abnormal speech, + expressive aphasia and + receptive aphasia _ (1) Respiratory failure Chronicity: acute Respiratory failure complication: unspecified whether with hypoxia or hypercapnia Qualified Code(s): J96.00 - Acute respiratory failure, unspecified whether with hypoxia or hypercapnia (2) Altered mental status Altered mental status type: unspecified Coma depth: Coma timing: Qualified Code(s): R41.82 - Altered mental status, unspecified
--- NOTE | 2018-09-04 17:53 | Death Summary ---
Date of Service September 04, 2018 Pronouncement Note Date and Time of Date of : 09/04/18 Time of : 17:30 Contributing Factors (1) Respiratory failure: (2) Stroke: (3) Seizure: (4) Pancreatic cancer: (5) Comfort measures only status: (6) Sepsis: Summary Additional details: Paged at [id number] to examine Tequila Dela Cruz. Additional Data Confirmation of : no pulse, no respirations, no heart sounds and pupils fixed and dilated Family: at bedside Attending/PCP notified?: No Attending physician: Sung Forbes, DO Was code activated?: No Autopsy requested?: No title insurance examiner notified?: No Organ bank notified?: No Advance directives: Yes Supervising Physician Co-Signing Physician Notes I personally examined the patient and verified all vásquez points of history and exam, discussed case, and agree with decision making with Dr Rodriguez. Patient seen earlier today, appearing comfortable, case discussed with palliative team. Family pleased with care. Comfort careas above, she appeared comfortable, and passed peacefully, empathy and support provided when with the family earlier. Otherwise as above
== END 2018-09-04 19:49 | disposition expired | DRG 208 ==
LOC: ED 22:49 → SUATTDRO 08-29 00:47 → 1E 08-29 00:47 → 2S 08-30 14:40 → 2E 08-30 15:25 → 4E 09-02 12:18